=== PATIENT | female | born 2000 | race Caucasian/White ===

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

== ENCOUNTER 2023-03-18 10:58 | Inpatient (IN) ==
--- NOTE | 2023-03-18 11:31 | ED Triage Note ---
Date of Service March 18, 2023 History of Present Illness This patient was briefly evaluated while in triage. An abbreviated physical exam was performed. This patient is a 22-year-old Female who presents to the ED for evaluation of feeling unwell last night, shaking, body aches, headache, emesis x 1 that she believes was dark blood. No blood in diarrhea. Here with mother. Physical Exam GENERAL: 22 year old female. In no acute distress. SKIN: No lesions or rashes. HEART: Regular rate and rhythm. LUNGS: Clear to auscultation. NEURO: Alert and oriented. No deficits. MUSCULOSKELETAL: No deformities to inspection of the extremities. PSYCH: Patient is pleasant and answers all questions appropriately. Initial orders for labs and / or imaging were placed and patient was placed in the waiting area until a bed is available. Please see further documentation for the full ED course.
[2023-03-18 12:06] LABS: Appearance Urine Clear (Clear); Bilirubin Urine Negative (Negative); Blood Urine Negative (Negative); Color Urine Yellow; Glucose Urine UA Negative (Negative); Ketones Urine Negative (Negative); Leukocyte Esterase Urine Negative (Negative); Nitrite Urine Negative (Negative); Protein Urine Negative (Negative); Specific Gravity Urine 1.017 (1.000-1.030); Urobilinogen Urine Negative (Negative); pH Urine >= 9.0 (4.5-7.5)
[2023-03-18 12:08] LABS: Hematocrit (blood only) 39.4 % (37.0-47.0); Hemoglobin 13.6 g/dl (12.0-16.0); Mean Corpuscular Hgb Conc 34.5 g/dL (32.0-36.0); Mean Platelet Volume 9.8 fL (9.4-12.4); Platelet Count 193 K/uL (130-400); RDW Coefficient of Variation 12.2 % (11.5-14.5); RDW Standard Deviation 36.9 fL (36.4-46.3); Red Blood Count 4.69 M/uL (4.20-5.40); White Blood Count 10.92 K/ul (4.8-10.8)
[2023-03-18 12:23] LABS: Alanine Aminotransferase 15 U/L (7-52); Albumin Globulin Ratio 1.6 (0.9-2); Albumin Level 4.5 gm/dl (3.4-5.0); Alkaline Phosphatase 63 U/L (34-104); Anion Gap 8 (3-11); Aspartate Aminotransferase 20 U/L (13-39); BUN Creatinine Ratio 10.9 (10-20); Bilirubin,Total 0.9 mg/dl (0.2-1.0); Blood Urea Nitrogen 11 mg/dl (6-23); Calcium 9.3 mg/dl (8.6-10.3); Carbon Dioxide 22 mmol/L (21-32); Chloride 105 mmol/L (98-107); Est GFR (African American) 92.8 ml/min; Est GFR (Non-African American) 80.1 ml/min; Globulin 2.9 gm/dl (2.5-4.0); Glucose 89 mg/dl (70-99(Fasting)); Lipase 10 U/L (11-82); Magnesium 1.7 mg/dl (1.7-2.4); Potassium 3.7 mmol/L (3.5-5.1); Sodium 135 mmol/L (136-145); Total Protein 7.4 gm/dl (6.0-8.3)
[2023-03-18 12:24] LABS: Monotest Negative (Negative); Pregnancy Test, Serum Negative (Negative)
[2023-03-18 12:25] LABS: Basophils # (auto) 0.03 K/uL (0.00-0.20); Basophils % (auto) 0.3 %; Immature Granulocytes # (auto) 0.03 K/uL (0.01-0.20); Immature Granulocytes % (auto) 0.3 %; Lymphocytes # (auto) 0.55 K/uL (1.20-3.40); Monocytes # (auto) 0.27 K/uL (0.11-0.59); Monocytes % (auto) 2.5 %; Neutrophils # (auto) 10.04 K/uL (1.40-6.50); Neutrophils % (auto) 91.9 %; Toxic Vacuolation 1+
[2023-03-18 12:29] LABS: Troponin I High Sensitivity < 2.3 pg/ml (0-14)
[2023-03-18 12:42] LABS: INR 1.1 (0.9-1.1); Partial Thromboplastin Ratio 1.1; Partial Thromboplastin Time 31.9 Seconds (21.0-31.0); Prothrombin Time 12.1 Seconds (9.0-12.0)
--- NOTE | 2023-03-18 12:54 | XRay Report ---
XR chest 1V not portable HISTORY: 22 years-old Female Body aches acute fever COMPARISON: 02/23/2023 TECHNIQUE: PA view of the chest FINDINGS: Cardiomediastinal and hilar silhouettes are within normal limits. No pneumothorax, pleural effusion o r airspace consolidation. The bones appear normal. IMPRESSION: No acute process. ACT 112: Negative or not required by law. The above report was generated using voice recognition software. It may contain grammatical, syntax o r spelling errors. Electronically signed by: Inocente Colon M.D. 03/18/2023 12:53 PM
[2023-03-18 12:57] LABS: Adenovirus PCR Not Detected (NotDetected); Bordetella parapertussis PCR Not Detected (NotDetected); Bordetella pertussis PCR Not Detected (NotDetected); Chlamydia pneumoniae PCR Not Detected (NotDetected); Coronavirus 229E PCR Not Detected (NotDetected); Coronavirus CoV-2 (COVID19)PCR Not Detected (NotDetected); Coronavirus HKU1 PCR Not Detected (NotDetected); Coronavirus NL63 PCR Not Detected (NotDetected); Coronavirus OC43PCR Not Detected (NotDetected); Human Metapneumovirus PCR Not Detected (NotDetected); Influenza A PCR Not Detected (NotDetected); Influenza B PCR Not Detected (NotDetected); Mycoplasma pneumoniae PCR Not Detected (NotDetected); Parainfluenza Virus 1 PCR Not Detected (NotDetected); Parainfluenza Virus 2 PCR Not Detected (NotDetected); Parainfluenza Virus 3 PCR Not Detected (NotDetected); Parainfluenza Virus 4 PCR Not Detected (NotDetected); Respiratory Syncytial VirusPCR Not Detected (NotDetected); Rhinovirus/Enterovirus PCR Not Detected (NotDetected)
[2023-03-18] MEDS ORDERED: PANTOprazole 40 MG in SYRINGE 0 ML IV ONE (13:53)
[2023-03-18] MEDS ORDERED: SODIUM CHLORIDE 0.9% 2,000 ML IV ONE (13:53)
[2023-03-18] MEDS ORDERED: SODIUM CHLORIDE 0.9% 1,000 ML IV ONE ×2 (15:26→18:43)
[2023-03-18] MEDS ORDERED: ACETAMINOPHEN 500 MG TAB PO STA (15:38)
[2023-03-18] MEDS ORDERED: METOCLOPRAMIDE HCL INJ 5 MG/ML 2 ML VIAL IV STA (15:40)
[2023-03-18] MEDS ORDERED: diphenhydrAMINE 50 MG/ML VIAL IV STA (15:40)
--- NOTE | 2023-03-18 15:41 | Emergency Department Note ---
Impression & Plan Headache ADMIT ED Provider Note HPI: History obtained from patient. The patient is a 22-year-old female who presents emergency department with fever, body aches, headaches, and episode of emesis x1 earlier this morning that the patient states was dark. On arrival here to the ED the patient is noted to be tachycardic at 136 with temperature of 36.8. Patient denies any current chest pain or shortness of breath, denies any abdominal pain, patient states she does have a headache and some generalized body aches. Patient is saturating well on room air on arrival. She states she has had a slight cough. ROS: - Per HPI Differential Diagnosis: Meningitis, encephalitis, Lyme disease, COVID-19 infection, influenza infection, urinary tract infection, pneumonia, amongst other potential pathologies. *Outpatient medications and allergy history reviewed. *Pertinent external medical records reviewed PE: General: Alert HEENT: Normocephalic, trachea midline, full range of motion of the cervical spine is appreciated without limitation or pain Eyes: Extraocular eye movement is intact, no scleral erythema Pulmonary: Clear to auscultation bilaterally, no wheezing Cardio: Tachycardic rate with regular rhythm GI: Abdomen is soft to palpation : No suprapubic tenderness MSK: No evidence of trauma or malformation of the extremities, no edema Skin: No evidence of rash Neuro: Alert, no focal deficits Psychiatric: Cooperative INDEPENDENT INTERPRETATIONS: quality assurance monitor final: (As interpreted by myself): - An order was placed for continuous cardiac monitoring - Patient was noted to be in sinus tachycardia with a rate of 130 EKG: (As interpreted by myself): Rate: 136 Rhythm: Sinus tachycardia Intervals: Within normal limits ST changes: No ST elevation Time: 1615 Interventions provided in ED: -IV fluid bolus, IV vancomycin, IV ceftriaxone, IV doxycycline, IV Reglan, IV Benadryl, IV Ativan Medical Decision Making: IV was established lab work ordered, patient was placed on manager monitoring. Lab work shows a slight leukocytosis at 10.92, hemoglobin is normal, platelet count is normal, CMP does not show any critical findings, troponin is negative, EKG per my interpretation shows sinus tachycardia without any acute ischemic changes or arrhythmia. Procalcitonin is noted to be elevated at 6.83, testing is negative. Urinalysis does not show any evidence of infection. Viral panel testing is negative. Lyme testing was obtained and the patient is Lyme IgM equivocal, Lyme IgG negative. We will send for Western blot. [place] testing was obtained and is negative. Despite IV fluids patient remains tachycardic. She was given Reglan and Benadryl for her headache and she states her headache did improve. She otherwise is alert and oriented, I do not feel CT imaging of the head is indicated at this time but I do have concern for the possibility of meningitis given headache with borderline fever noted here in the ED up to 37.8 in addition to mild leukocytosis with elevated procalcitonin. I discussed lumbar puncture with the patient she was in agreement, unfortunately lumbar puncture was unsuccessful for obtaining CSF secondary to bony resistance encountered during the procedure. Given the patient's ongoing tachycardia with lab abnormalities I do feel would be appropriate to treat the patient prophylactically with vancomycin and ceftriaxone as well as doxycycline given equivocal Lyme IgM. We will plan for admission to the hospitalist service and possible LP under x-ray guidance with radiology service tomorrow. I discussed the case with the on-call hospitalist, Dr. Reveles, and he is in agreement for admission. Patient is in agreement to this plan as is her family member at the bedside. Patient was admitted in stable condition. Consultants/Discussions held with other healthcare providers: -Hospitalist, Dr. Reveles Disposition discussion held by myself with: -Patient and family member at the bedside Diagnosis: 1. Headache, acute, not intractable 2. Fever by history 3. Myalgias, acute 4. Leukocytosis, acute 5. Elevated procalcitonin level 6. Lyme IgM equivocal test finding Disposition: Admission Yossi Fraser DO Emergency Medicine Past Med/Surg History Medical History Academic problem ADHD, predominantly inattentive type followed by Joanna Rollins @ [facility] on trazodone, buspirone, methylphenidate Problems with learning Surgical History History of tonsillectomy and adenoidectomy [place] teeth extracted Family History (Updated 06/15/20 @ 16:33 by Jarrett Molina MD) Unknown Primary nocturnal enuresis Adopted Bipolar disorder Anxiety disorder Brother Attention deficit hyperactivity disorder Mother Diabetes Rheumatoid arthritis Father Rheumatoid arthritis Social History Smoking Status: Never smoker Hx Alcohol Use: No Hx Substance Use: No Preferred Language: Pashto Visual Impairment: No Limitations Hearing Ability: Normal marital status: Single Current Living Situation: Family Current Living Situation Comment: Mom, Dad, younger brother and a dog Feels Safe at Home: Yes Childhood Exposure to Second-Hand Smoke: No Dental Care, Regularly: Yes Seatbelt Use: always Sunscreen Use: No Allergies Allergies Allergy/AdvReac Type Severity Reaction Status Date / Time No Known Allergies Allergy Verified 03/18/23 16:17 Home Meds Home Medications Medication Instructions Recorded Confirmed buspirone 10 mg tablet 10 mg PO BID 12/14/18 03/18/23 trazodone 50 mg tablet 50 mg PO HS 12/14/18 03/18/23 Results & Data (ED) Vital Signs Vital Signs - 24 hr 03/18/23 11:28 03/18/23 13:55 03/18/23 15:51 Temperature 36.8 C 37.7 C H Temperature Source Temporal Artery Scan Oral Pulse Rate 136 H 147 H Pulse Rate [Finger] 145 H Pulse Rhythm [Finger] Regular Respiratory Rate 18 19 Respiratory Effort / Characteristics Non-Labored Spontaneous Non-Labored Spontaneous Respiratory Depth Normal Normal Respiratory Pattern Regular Blood Pressure 114/75 Blood Pressure [Left Arm] 112/68 Blood Pressure Mean 88 Blood Pressure Mean [Left Arm] 82 Blood Pressure Position Sitting Pulse Oximetry 98 97 Oxygen Delivery Method Room Air Room Air Sepsis Recent Fever Within 48 Hours Yes Sepsis New/Unexplained Change in Mental Status N/A Sepsis Action Taken by Nursing No Action Required 03/18/23 15:53 03/18/23 17:37 Temperature 37.8 C H Temperature Source Oral Pulse Rate Pulse Rate [Finger] 138 H 144 H Pulse Rhythm [Finger] Respiratory Rate 18 18 Respiratory Effort / Characteristics Non-Labored Spontaneous Non-Labored Respiratory Depth Normal Normal Respiratory Pattern Blood Pressure Blood Pressure [Left Arm] 112/71 133/74 Blood Pressure Mean Blood Pressure Mean [Left Arm] 84 93 Blood Pressure Position Pulse Oximetry 100 98 Oxygen Delivery Method Room Air Room Air Sepsis Recent Fever Within 48 Hours Sepsis New/Unexplained Change in Mental Status Sepsis Action Taken by Nursing Laboratory Data 03/18/23 11:47 03/18/23 11:47 Lab Results 03/18/23 03/18/23 Range/Units 11:47 11:53 WBC 10.92 H (4.8-10.8) K/ul RBC 4.69 (4.20-5.40) M/uL Hgb 13.6 (12.0-16.0) g/dl Hct 39.4 (37.0-47.0) % MCV 84.0 (80.0-100.0) fL MCH 29.0 (25.0-34.0) pg MCHC 34.5 (32.0-36.0) g/dL RDW Std Deviation 36.9 (36.4-46.3) fL RDW Coeff of [place] 12.2 (11.5-14.5) % Plt Count 193 (130-400) K/uL MPV 9.8 (9.4-12.4) fL Immature Gran % (Auto) 0.3 % Neut % (Auto) 91.9 % Lymph % (Auto) 5.0 % [place] % (Auto) 2.5 % Eos % (Auto) 0.0 % Baso % (Auto) 0.3 % Neut # (Auto) 10.04 H (1.40-6.50) K/uL Lymph # (Auto) 0.55 L (1.20-3.40) K/uL [place] # (Auto) 0.27 (0.11-0.59) K/uL Eos # (Auto) 0.00 (0.00-0.50) K/uL Baso # (Auto) 0.03 (0.00-0.20) K/uL Immature Gran # (Auto) 0.03 (0.01-0.20) K/uL Toxic Vacuolation 1+ PT 12.1 H (9.0-12.0) Seconds INR 1.1 (0.9-1.1) APTT 31.9 H (21.0-31.0) Seconds PTT Ratio 1.1 Sodium 135 L (136-145) mmol/L Potassium 3.7 (3.5-5.1) mmol/L Chloride 105 (98-107) mmol/L Carbon Dioxide 22 (21-32) mmol/L Anion Gap 8 (3-11) BUN 11 (6-23) mg/dl Creatinine 1.01 (0.6-1.2) mg/dl Est Cr Clr Drug Dosing 82.0 ml/min Est GFR ( Amer) 92.8 ml/min Est GFR (Non-Af Amer) 80.1 ml/min BUN/Creatinine Ratio 10.9 (10-20) Glucose 89 (70-99(Fasting)) mg/dl Calcium 9.3 (8.6-10.3) mg/dl Magnesium 1.7 (1.7-2.4) mg/dl Total Bilirubin 0.9 (0.2-1.0) mg/dl AST 20 (13-39) U/L ALT 15 (7-52) U/L Alkaline Phosphatase 63 (34-104) U/L Troponin I High Sens < 2.3 (0-14) pg/ml Total Protein 7.4 (6.0-8.3) gm/dl Albumin 4.5 (3.4-5.0) gm/dl Globulin 2.9 (2.5-4.0) gm/dl Albumin/Globulin Ratio 1.6 (0.9-2) Lipase 10 L (11-82) U/L Procalcitonin 6.83 H (0-0.5) ng/ml HCG, Qual Negative (Negative) Urine Color Yellow Urine Appearance Clear (Clear) Urine pH >= 9.0 H (4.5-7.5) Ur Specific [place] 1.017 (1.000-1.030) Urine Protein Negative (Negative) Urine Glucose (UA) Negative (Negative) Urine Ketones Negative (Negative) Urine Blood Negative (Negative) Urine Nitrite Negative (Negative) Urine Bilirubin Negative (Negative) Urine Urobilinogen Negative (Negative) Ur Leukocyte Esterase Negative (Negative) Adenovirus (PCR) Not Detected (NotDetected) B. pertussis DNA (PCR) Not Detected (NotDetected) B.parapertussis DNA PCR Not Detected (NotDetected) Lyme Disease IgG Ab Negative (Negative) Lyme Disease IgM Ab Equivocal A (Negative) C. pneumoniae DNA (PCR) Not Detected (NotDetected) Coronavirus OC43 (PCR) Not Detected (NotDetected) Coronavirus HKU1 (PCR) Not Detected (NotDetected) Coronavirus 229E (PCR) Not Detected (NotDetected) SARS-CoV-2 (PCR) Not Detected (NotDetected) Coronavirus NL63 (PCR) Not Detected (NotDetected) Monoscreen Negative (Negative) Human Metapneumovir PCR Not Detected (NotDetected) Influenza Type A (PCR) Not Detected (NotDetected) Influenza Type B (PCR) Not Detected (NotDetected) M. pneumoniae (PCR) Not Detected (NotDetected) Parainfluenza 1 (PCR) Not Detected (NotDetected) Parainfluenza 2 (PCR) Not Detected (NotDetected) Parainfluenza 3 (PCR) Not Detected (NotDetected) Parainfluenza 4 (PCR) Not Detected (NotDetected) RSV (PCR) Not Detected (NotDetected) Entero/Rhino (PCR) Not Detected (NotDetected) Group A Strep (PCR) NOT DETECTED (NotDetected) Administered Medications Discontinued Medications Acetaminophen (Acetaminophen 500 Mg Tab) 1,000 mg PO NOW STA Stop: 03/18/23 15:39 Last Admin: 03/18/23 15:53 Dose: 1,000 mg Documented By: NARAYAN Diphenhydramine HCl (Diphenhydramine 50 Mg/Ml Vial) 25 mg IV NOW STA Stop: 03/18/23 15:41 Last Admin: 03/18/23 15:58 Dose: 25 mg Documented By: NARAYAN Sodium Chloride (Nss) 2,000 mls @ 999 mls/hr IV .Q2H1M ONE Stop: 03/18/23 15:53 Last Infusion: 03/18/23 16:31 Dose: Infused Documented By: Admin: 03/18/23 14:15 Dose: 999 mls/hr Documented By: PRASHANT Pantoprazole Sodium 40 mg/ (Syringe) 10 mls @ 5 mls/min IV NOW ONE Stop: 03/18/23 13:54 Last Admin: 03/18/23 14:17 Dose: 5 mls/min Documented By: PRASHANT Sodium Chloride (Nss) 1,000 mls @ 999 mls/hr IV .Q1H1M ONE Stop: 03/18/23 16:26 Last Infusion: 03/18/23 17:31 Dose: Infused Documented By: Admin: 03/18/23 16:03 Dose: 999 mls/hr Documented By: NARAYAN Lorazepam (Lorazepam 1 Mg/1 Ml Syr Ed Inj Use) 1 mg IV ONE STA Stop: 03/18/23 17:39 Last Admin: 03/18/23 18:01 Dose: 1 mg Documented By: NINA Metoclopramide HCl (Metoclopramide Hcl Inj 5 Mg/Ml 2 Ml Vial) 10 mg IV NOW STA Stop: 03/18/23 15:41 Last Admin: 03/18/23 15:59 Dose: 10 mg Documented By: NARAYAN Imaging Data Radiologist's Impression: Chest X-Ray 03/18/23 11:31 XR chest 1V not portable HISTORY: 22 years-old Female Body aches acute fever COMPARISON: 02/23/2023 TECHNIQUE: PA view of the chest FINDINGS: Cardiomediastinal and hilar silhouettes are within normal limits. No pneumothorax, pleural effusion or airspace consolidation. The bones appear normal. IMPRESSION: No acute process. ACT 112: Negative or not required by law. The above report was generated using voice recognition software. It may contain grammatical, syntax or spelling errors. Electronically signed by: Inocente Colon M.D. 03/18/2023 12:53 PM Discharge Plan Visit Data Chief Complaint: Flu Like Symptoms Stated Complaint: VOMITING BLOOD,FLU SX,BODY ACHES,104 TEMP ED Provider: Yossi Fraser Discharge Problem: Headache Forms Stand Alone Forms: My [employer] Prescriptions Prescriptions: No Action trazodone 50 mg tablet 50 mg PO HS buspirone 10 mg tablet 10 mg PO BID Referrals Referrals: Joi Ramírez MD [Primary Care Provider] -
[2023-03-18 16:23] LABS: Procalcitonin 6.83 ng/ml (0-0.5)
[2023-03-18 16:29] LABS: Lyme Ab IgG w/WB Rflx Negative (Negative)
[2023-03-18 17:16] LABS: Lyme Ab IgM w/WB Rflx Equivocal (Negative)
[2023-03-18] MEDS ORDERED: LORazepam 1 MG/1 ML SYR ED Inj Use IV STA (17:38)
[2023-03-18] MEDS ORDERED: VANCOMYCIN CONSULT ACTIVE PRN ×2 (18:41→22:28)
[2023-03-18] MEDS ORDERED: VANCOMYCIN HCL 1,500 MG in SODIUM CHLORIDE 0.9% 500 ML IV ONE (18:41)
[2023-03-18] MEDS ORDERED: cefTRIAXone SODIUM 2,000 MG/50 ML BAG IV STA (18:41)
[2023-03-18] MEDS ORDERED: DOXYCYCLINE HYCLATE 100 MG in DEXTROSE 5% MINI-B 100 ML IV ONE (18:59)
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
[2023-03-18] MEDS ORDERED: traZODone HCL 50 MG TAB PO ONE (22:49)
[2023-03-18 23:01] LABS: C Reactive Protein 7.54 mg/dl (0-0.5)
[2023-03-18] MEDS: PLASMA-LYTE A 1,000 ML IV SCH (23:35)
[2023-03-18] MEDS: PANTOprazole 40 MG in SYRINGE 0 ML IV SCH (23:39)
[2023-03-19 01:33] LABS: Hematocrit (blood only) 33.2 % (37.0-47.0); Hemoglobin 11.6 g/dl (12.0-16.0)
[2023-03-19] MEDS: PLASMA-LYTE A 1,000 ML IV SCH ×3 (02:17→22:42)
[2023-03-19 05:10] LABS: Basophils # (auto) 0.02 K/uL (0.00-0.20); Basophils % (auto) 0.3 %; Eosinophils # (auto) 0.02 K/uL (0.00-0.50); Eosinophils % (auto) 0.3 %; Hematocrit (blood only) 33.6 % (37.0-47.0); Immature Granulocytes # (auto) 0.03 K/uL (0.01-0.20); Immature Granulocytes % (auto) 0.5 %; Lymphocytes # (auto) 1.19 K/uL (1.20-3.40); Lymphocytes % (auto) 20.2 %; Mean Corpuscular Hemoglobin 30.1 pg (25.0-34.0); Mean Corpuscular Hgb Conc 35.7 g/dL (32.0-36.0); Mean Corpuscular Volume 84.2 fL (80.0-100.0); Mean Platelet Volume 10.4 fL (9.4-12.4); Monocytes # (auto) 0.47 K/uL (0.11-0.59); Neutrophils # (auto) 4.16 K/uL (1.40-6.50); Neutrophils % (auto) 70.7 %; Platelet Count 165 K/uL (130-400); RDW Coefficient of Variation 12.2 % (11.5-14.5); RDW Standard Deviation 37.3 fL (36.4-46.3); Red Blood Count 3.99 M/uL (4.20-5.40); White Blood Count 5.89 K/ul (4.8-10.8)
[2023-03-19 05:25] LABS: BUN Creatinine Ratio 9.1 (10-20); C Reactive Protein 8.32 mg/dl (0-0.5); Calcium 8.2 mg/dl (8.6-10.3); Creatinine Clr Calc Pharmacy 107.6 ml/min; Est GFR (African American) 128.8 ml/min; Est GFR (Non-African American) 111.1 ml/min; Potassium 3.3 mmol/L (3.5-5.1)
[2023-03-19] MEDS ORDERED: VANCOMYCIN HCL 1,000 MG in SODIUM CHLORIDE 0.9% 500 ML IV SCH (06:00)
[2023-03-19] MEDS ORDERED: VANCOMYCIN HCL 1,000 MG in SODIUM CHLORIDE 0.9% 250 ML IV SCH (06:00)
[2023-03-19] MEDS ORDERED: DOXYCYCLINE HYCLATE 100 MG in DEXTROSE 5% MINI-B 100 ML IV SCH (07:00)
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
[2023-03-19 11:45] LABS: Appearance CSF Clear; CSF Count Tube # 3; CSF Xanthrochromic No xanthochromia; Color CSF Colorless
[2023-03-19] MEDS ORDERED: VANCOMYCIN HCL 1,250 MG in SODIUM CHLORIDE 0.9% 250 ML IV SCH (12:00)
--- NOTE | 2023-03-19 12:29 | Electrocardiogram Report ---
Test Reason : Blood Pressure : / mmHG Vent. Rate : 136 BPM Atrial Rate : 136 BPM P-R Int : 124 ms QRS Dur : 072 ms QT Int : 310 ms P-R-T Axes : 069 054 024 degrees QTc Int : 466 ms Sinus tachycardia Otherwise Normal ECG No previous ECGs available Confirmed by Mayo Valdes ([id number]) on 03/19/2023 12:29:14 PM Referred By: REFERRED SELF Confirmed By:Mayo Valdes
--- NOTE | 2023-03-19 12:39 | Pharmacy Report ---
Pharmacy PK ABX Note - Date of Service March 19, 2023 - Assessment and Plan Assessment 22 year old F receiving empiric vancomycin/ceftriaxone/doxycycline for treatment of fever- unknown source. Pertinent microbiologic data includes: LP pending, equivocal Lyme IGM Ab- further studies pending. Negative respiratory panel. Procal was elevated at 6.83. Plan Vancomycin * Loading dose: 1500 mg IV x 1 * Maintenance dose: 1250 mg IV every 12 hours * Regimen is predicted to achieve target AUC/ANKIT of 400-600 mg/L.hr * Random level ordered for 03/20 @ 1000 Pharmacy will continue to follow and will adjust dose/frequency as necessary. Thank you. Pharmacy has transitioned to AUC monitoring for vancomycin. AUC/ANKIT is the preferred PK/PD target and is associated with decreased risk of nephrotoxicity compared to traditional trough targets.
[2023-03-19] MEDS: PANTOprazole 40 MG in SYRINGE 0 ML IV SCH ×2 (12:40→20:23)
[2023-03-19 12:56] LABS: Cryptococcus neoformans/ga PCR Not Detected (NotDetected); Cytomegalovirus PCR Not Detected (NotDetected); Enterovirus PCR Not Detected (NotDetected); Escherichia coli K1 PCR Not Detected (NotDetected); Haemophilius influenzae PCR Not Detected (NotDetected); Herpes Simplex Virus 1 PCR Not Detected (NotDetected); Herpes Simplex Virus 2 PCR Not Detected (NotDetected); Human Herpes Virus 6 PCR Not Detected (NotDetected); Human Parechovirus PCR Not Detected (NotDetected); Listeria monocytogenes PCR Not Detected (NotDetected); Neisseria meningitidis PCR Not Detected (NotDetected); Streptococcus agalactiae PCR Not Detected (NotDetected); Streptococcus pneumoniae PCR Not Detected (NotDetected); Varicella Zoster Virus PCR Not Detected (NotDetected)
--- NOTE | 2023-03-19 13:15 | Fluoroscopy Report ---
Lumbar puncture under fluoroscopy INDICATION: Evaluate for meningitis; body aches/fever PROCEDURE: Procedure and risks were explained. Informed consent was obtained. A final timeout was com pleted. The patient was placed prone on the fluoroscopic exam table. The lower lumbar region was prep ped and draped in sterile fashion. 1% lidocaine was utilized for skin anesthesia. Utilizing fluoroscopic guidance, a 22-gauge spinal needle was advanced into the intrathecal space at the L 2-3 disc space level. 1 spot image was obtained. Approximately 9 mL of clear CSF fluid was alysia radha and sent to lab for analysis. The needle was removed and Band-Aid applied. The patient tolerated the procedure well. Vital signs will be monitored postprocedure. Total fluoroscopy time 20 seconds. DAP is 2.12 mcGy/m2. IMPRESSION: Lumbar puncture as above. Performed, dictated, and signed by Alexey Saleh PA-C; to be co-signed by Dr. Inocente Colon. Electronically signed by: Inocente Colon M.D. 03/19/2023 1:43 PM
[2023-03-19 13:17] LABS: Total Protein CSF 23.3 mg/dl (15-45)
[2023-03-19] MEDS: ACETAMINOPHEN 1,000 MG/100 ML VIAL IV PRN (16:11)
--- NOTE | 2023-03-19 17:25 | Billing Data ---
Date of Service March 19, 2023 Coding Level of Care Code 59366 SUB INP/OBS CARE MIN
[2023-03-19] MEDS ORDERED: cefTRIAXone SODIUM 2,000 MG in DEXTROSE 5 % MINI-B 50 ML IV SCH (20:00)
[2023-03-19] MEDS ORDERED: traZODone HCL 50 MG TAB PO SCH (21:00)
[2023-03-20] MEDS: ACETAMINOPHEN 1,000 MG/100 ML VIAL IV PRN (04:19)
[2023-03-20 04:48] LABS: Basophils # (auto) 0.01 K/uL (0.00-0.20); Basophils % (auto) 0.2 %; Eosinophils # (auto) 0.11 K/uL (0.00-0.50); Eosinophils % (auto) 2.4 %; Hematocrit (blood only) 33.2 % (37.0-47.0); Hemoglobin 11.3 g/dl (12.0-16.0); Immature Granulocytes # (auto) 0.01 K/uL (0.01-0.20); Immature Granulocytes % (auto) 0.2 %; Lymphocytes # (auto) 1.93 K/uL (1.20-3.40); Lymphocytes % (auto) 42.8 %; Mean Corpuscular Hemoglobin 28.5 pg (25.0-34.0); Mean Corpuscular Volume 83.8 fL (80.0-100.0); Mean Platelet Volume 10.2 fL (9.4-12.4); Monocytes # (auto) 0.66 K/uL (0.11-0.59); Monocytes % (auto) 14.6 %; Neutrophils # (auto) 1.79 K/uL (1.40-6.50); Neutrophils % (auto) 39.8 %; Platelet Count 156 K/uL (130-400); RDW Coefficient of Variation 12.4 % (11.5-14.5); RDW Standard Deviation 38.1 fL (36.4-46.3); Red Blood Count 3.96 M/uL (4.20-5.40); White Blood Count 4.51 K/ul (4.8-10.8)
[2023-03-20 05:01] LABS: BUN Creatinine Ratio 12.8 (10-20); Calcium 8.8 mg/dl (8.6-10.3); Creatinine Clr Calc Pharmacy 95.6 ml/min; Est GFR (African American) 112.7 ml/min; Est GFR (Non-African American) 97.3 ml/min; Potassium 3.7 mmol/L (3.5-5.1)
[2023-03-20] MEDS: PLASMA-LYTE A 1,000 ML IV SCH ×2 (06:13→11:13)
[2023-03-20] MEDS: PANTOprazole 40 MG in SYRINGE 0 ML IV SCH (08:39)
[2023-03-20] MEDS ORDERED: BUTALBITAL/ACETAMIN/CAFFEINE TAB PO STA (10:41)
--- NOTE | 2023-03-20 10:45 | Hospitalist Progress Note ---
Date of Service March 20, 2023 Assessment & Plan (1) Fever: (2) Hematemesis: (3) Anxiety disorder: (4) Tachycardia: Plan Pt is a 22 yo female with an non-pertinent past medical history who presents to the hospital on 03/18 for fever. Pt has postural headache, increased fluids and given caffeine, will monitor and see how she does. If not D/C later today, should be good for D/C tomorrow. Fever of unknown source, viral > tickborne Fever of 104.0*F, severe headache which began 03/17, no recent travel or tick bites, Lyme IgM is equivocal LP performed, pending lyme but negative for all else - Anaplasmosis testing pending Blood cultures pending, negative so far - suspect that this is viral in nature, however if fever persists/symptoms not improving on Thursday, favors more of a tick-borne illness Headache - likely spinal headache after LP yesterday as it is postural - will give po caffeine and increase IV fluids Tachycardia With high fever and headache, infection tx as noted Sinus tachycardia up to 150s, improved significantly following fluids but remains intermittently in 120-130s. IVF are continued, now largely 110s Do not treat sinus tachycardia with beta-blockers as is most likely reactive. We will continue to treat infectious sources, +tylenol, and trend hemoglobin. - will continue to monitor Metabolic acidosis - CO2 16, chloride 110 - suspect due to multiple liters of normal saline given yesterday, pt on plasmalyte now Hematemesis, 1 episode Patient endorses 1 episode of emesis which she thinks may have been dark or reddish, never had a GI bleed previously, no hematochezia or melena Does use ibuprofen as needed during periods chronically for cramps/pain. Will cover with twice daily PPI push Anxiety disorder BuSpar/trazodone held while in DVT prophylaxis: SCDs CODE STATUS: Full Admission and Anticipated Discharge Date Admission Date: March 18, 2023 Supervising Physician Co-Signing Physician Notes I personally examined the patient and verified all forrest points of history and exam, discussed case, and agree with decision making with Dr Patrick feeling better. feels up to going home. Vitals noted, in general she is awake and alert pleasant no distress. HEENT normocephalic atraumatic mucous membranes moist. Breathing unlabored no accessory muscle use good effort. Skin shows no rashes no pallor or icterus. Neuro without focal deficits. Febrile illness/sepsis present on admissionfortunately does not appear to be typical bacterial infectionsspinal tap clean, blood cultures no growth to date, no evidence of pneumonia/UTI/intestinal infection. Seems most likely viral versus less likely but hard to rule out in this very endemic area something tickborneoff all abx and still getting better. If she improves as would be expected for a viral illness, that would essentially declare the diagnosis. If she continues to have fevers or malaise or feels worseparticularly over the next few daysthen would reinstitute doxycycline. (arbitarily outlined 03/22 as the "line" past which would reconsider tick borne) Otherwise as above Subjective Pt is a 22 yo female with an non-pertinent past medical history who presents to the hospital on 03/18 for fever. Today, pt states she was feeling well this morning with some nausea. Pt states that otherwise she feels well. No vomiting. Later this morning, pt noted to have severe postural headache, but otherwise is feeling fine, just states when she sits or stands that her headache gets very intense. Review of Systems Review of Systems: Per HPI. Physical Exam Physical Exam: General:Alert and oriented, no acute distress, HEENT: Normocephalic, moist oral mucosa, Cardio: Regular rate and rhythm, no murmur, Resp:Lungs clear to auscultation b/l, no wheezes or rhonchi, GI: Soft and nontender, nondistended, bowel sounds active Skin: Warm, pink, dry, Psych: Mood-affect congruence. Results & Data Results & Data Vital Signs (Past 12 Hours) Vital Signs Temp Pulse Pulse Resp BP Pulse Ox O2 Del Method 03/20/23 08:00 82 03/20/23 07:00 37.0 C 96 H 16 111/59 L 99 Room Air 03/20/23 04:29 36.8 C 94 H 20 105/71 100 Room Air 03/20/23 00:00 82 03/19/23 22:49 37.0 C 95 H 17 117/74 98 Room Air Resident Activity Tracking Resident Involvement: Resident Care Provided Care Provided: Adult Hospital Medicine
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
--- NOTE | 2023-03-20 18:45 | Billing Data ---
Date of Service March 20, 2023 Coding Level of Care Code 62487 IN/OBS DISCH 30 MIN/LESS
--- NOTE | 2023-03-22 08:35 | Coding Query ---
To promote full compliance with coding requirements relating to patient care, provider participation is requested in all cases of information coder uncertainty. Please assist us with the question(s) below: Coding Question(s): The diagnosis(es) below was documented that antibiotic coverage was being provided for meningitis. Please indicate if it is still a possible diagnosis or ruled out. Physician's Response(s): MENINGITIS ( ) Diagnosed and POA ( ) Diagnosed and not POA ( x ) Ruled out ( ) Other (please specify) Thank you for your assistance, Jelena Hui - Support Worker [facility]Mary
--- OUTSIDE RECORDS SUMMARY | 2023-03-22 16:28 | External Medical Summary | Continuity of Care Document ---
Author Name Unknown Organization [address] [place], [place] [id number] Care Team Providers Care Certified Medication Aide Name Role Phone Paige Jimenez Primary Care Physician [phone] Encounter PSYCHIATRIC [id number] Date(s): 09/30/22 - 09/30/[address] [address] [phone] Encounter Diagnosis Body mass index [BMI] 25.0-25.9, adult(Discharge Diagnosis) - 09/30/22 Concussion(Discharge Diagnosis) - 09/30/22 Discharge Disposition: Home or Self Care Attending Physician: MD Desiree, [place] Allergies, Adverse Reactions, Alerts No Known Allergies Assessment and Plan Extracted from: Title:Office Visit Note Author:MD Desiree, [facility] Date:09/30/22 1.Concussion Acute. Discussed with patient and mother about concussion. Patient education about Concussion provider before discharge. Discussed about hydration, limit use of electronics. Seek immediate consult if with worsening of symptoms. Refer to Neurology ordered. Immunizations Given and Recorded Vaccine Date Status Refusal Reason human papillomavirus vaccine 01/11/21 Given human papillomavirus vaccine 1 08/28/14 Recorded SARS-CoV-2 (COVID-19) Ad26 vaccine 2 12/05/20 Speedy rded meningococcal group B vaccine 3 12/14/18 Recorded meningococcal conjugate vaccine 4 12/14/18 Recorde d meningococcal conjugate vaccine 5 04/18/13 Recorde d tetanus/diphtheria/pertuss, acel (Tdap) 6 04/18/13 Recorded hepatitis A pediatric vaccine 7 01/29/12 Recorded hepatitis A pediatric vaccine 8 03/24/11 Recorded influenza virus vaccine, H1N1 9 05/02/09 Recorded influenza virus vaccine, H1N1 10 03/31/09 Recorded varicella virus vaccine 11 10/27/07 Recorded varicella virus vaccine 12 12/10/04 Recorded poliovirus vaccine, inactivated 13 10/27/07 Record ed poliovirus vaccine, inactivated 14 10/16/04 Record ed poliovirus vaccine, inactivated 15 02 Record ed poliovirus vaccine, inactivated 16 02 Record ed measles/mumps/rubella virus vaccine 17 10/27/07 Re corded measles/mumps/rubella virus vaccine 18 06/11/04 Re corded diphtheria/tetanus/pertuss, acel (DTaP) 19 10/27/07 Recorded diphtheria/tetanus/pertuss, acel (DTaP) 20 10/16/04 Recorded diphtheria/tetanus/pertuss, acel (DTaP) 21 06/11/04 Recorded diphtheria/tetanus/pertuss, acel (DTaP) 22 02 Recorded diphtheria/tetanus/pertuss, acel (DTaP) 23 02 Recorded pneumococcal 7-valent vaccine 24 12/10/04 Recorded pneumococcal 7-valent vaccine 25 02 Recorded pneumococcal 7-valent vaccine 26 02 Recorded hepatitis B pediatric vaccine 27 12/10/04 Recorded hepatitis B pediatric vaccine 28 02 Recorded hepatitis B pediatric vaccine 29 02 Recorded hepatitis B pediatric vaccine 30 02 Recorded 1Result Comment: 2020-09-07: Historical information-source unspecified 2Result Comment: 2021-01-11: Historical information-source unspecified 3Result Comment: 2020-09-07: Historical information-source unspecified 4Result Comment: 2020-09-07: Historical information-source unspecified 5Result Comment: 2020-09-07: Historical information-source unspecified 6Result Comment: 2020-09-07: Historical information-source unspecified 7Result Comment: 2021-01-11: Historical information-source unspecified 8Result Comment: 2021-01-11: Historical information-source unspecified 9Result Comment: 2020-09-07: Historical information-source unspecified 10Result Comment: 2020-09-07: Historical information-source unspecified 11Result Comment: 2020-09-07: Historical information-source unspecified 12Result Comment: 2020-09-07: Historical information-source unspecified 13Result Comment: 2020-09-07: Historical information-source unspecified 14Result Comment: 2020-09-07: Historical information-source unspecified 15Result Comment: 2020-09-07: Historical information-source unspecified 16Result Comment: 2020-09-07: Historical information-source unspecified 17Result Comment: 2020-09-07: Historical information-source unspecified 18Result Comment: 2020-09-07: Historical information-source unspecified 19Result Comment: 2020-09-07: Historical information-source unspecified 20Result Comment: 2020-09-07: Historical information-source unspecified 21Result Comment: 2020-09-07: Historical information-source unspecified 22Result Comment: 2020-09-07: Historical information-source unspecified 23Result Comment: 2020-09-07: Historical information-source unspecified 24Result Comment: 2020-09-07: Historical information-source unspecified 25Result Comment: 2020-09-07: Historical information-source unspecified 26Result Comment: 2020-09-07: Historical information-source unspecified 27Result Comment: 2020-09-07: Historical information-source unspecified 28Result Comment: 2020-09-07: Historical information-source unspecified 29Result Comment: 2020-09-07: Historical information-source unspecified 30Result Comment: 2020-09-07: Historical information-source unspecified Medications busPIRone 10 mg oral tablet Start: 01/11/21 15:32:00 EDT, 1 tab, PO, bid Start Date: 01/11/21 Status: Ordered Concerta 27 mg/24 hr oral tablet, extended release Start: 09/30/22 9:51:00 EDT, 1 tab, PO, qAM, Refills: 0 Start Date: 09/30/22 Status: Ordered Sprintec Start: 01/11/21 15:31:00 EDT, 1 tab, PO, Daily Start Date: 01/11/21 Status: Ordered traZODone 50 mg oral tablet Start: 01/11/21 15:32:00 EDT, 1 tab, PO, qhs Start Date: 01/11/21 Status: Ordered Mental Status 09/30/22 Barriers to Learning one year None evide nt Mandatory Health Literacy Documentation Yes Health Literacy Communication Barriers N ever Primary Language Panamanian Problem List Condition Confirmation Course Effective Dates Status Health St at[facility] Informant ADD (attention deficit disorder) Confirmed Active Depression Confirmed Active Raynaud disease Confirmed Active Diagnosis Diagnosis Type Effective Dates Health Status Clinical Service Informant Body mass index [BMI] 25.0-25.9, adult Discharge Diagnosis 09/30/22 Non-Specified Concussion Discharge Diagnosis 09/30/22 Procedures Procedure Date Related Diagnosis Body Site Status tonsillectomy 2007 Completed None Completed Vital Signs Most recent to oldest [Reference Range]: 1 Height 161.9 cm (09/30/22 9:51 AM) Patient Weight 67.4 kg (09/30/22 9:51 AM) Body Mass Index 25.71 kg/m2 (09/30/22 9:51 AM) Heart Rate 94 bpm (09/30/22 9:51 AM) Respiratory Rate 14 br/min (09/30/22 9:51 AM) Blood Pressure 118/76mmHg (09/30/22 9:51 AM) Cuff Pulse Pressure 42 mmHg (09/30/22 9:51 AM) Social History Social History Type Response Smoking Status Never smoked cigaret zully Sex Female FCM Outpt Note * MD Desiree, [place]: PERFORM Event Display: FCM Outpt Note Authored Date: Chief Complaint hit head on car part . diagnosed with concussion thursday per CT scan. patient states shefeels fine; a bit dizzy when driving. mom states she feels there's some memory issues going on History of Present Illness 22 y/o F c/o mild dizziness x 6 days. Patient reported that she got hit on the headby hard top. Patient's BF was showing her how to remove his car's hard top and it accidentallyslipped out of BF's hand and hit the right side of the head. States that she noticed bump on the area where she got hit. After few hours, she started feeling nauseous,dizzy, c/o light and soundsensitivity,c/o headache. States that she went to ER the next day and had CT of the brain and it was normal. Today, shefeels much better but still feels dizzy with mild headache. Denies blurring of vision, no vomiting, denies chest pain or shortness of breath. denies abdominal pain. denies numbness, tingling or weakness of the extremities. Review of Systems see hpi Physical Exam Vitals & Measurements HR:94(Monitored) RR:14 BP:118/76 SpO2:98% HT:161.9cm WT:67.4kg WT:67.400kg(Dosing) BMI:25.71 PHQ2 Data(Data Documented on:09/30/2022 09:51) Emotional health assessment NEGATIVE General: alert and oriented, no acute distress Eye: PERRL, EOMI, normal conjunctiva Scalp: no redness, non tender, no lump or bump noted at the time of exam. HENT: normocephalic, TMs clear, normal hearing, moist oral mucosa, no pharyngeal erythema, no sinus tenderness Neck: supple, non-tender, no lymphadenopathy, no thyromegaly Resp: Lungs CTA, non-labored respirations, BS equal, symmetrical expansion CV: normal rate and rhythm, no murmur, no gallop, good pulses equal in all extremities, normal peripheral perfusion, no edema GI: soft, non-tender, non-distended, normal bowel sounds, no organomegaly : no CVA tenderness MS: normal ROM, normal strength, no tenderness, no swelling, no deformity, normal gait Neurologic: alert and oriented, normal sensory, normal motor, no focal deficits, CN II-XII intact, normal DTRs Psychiatric: appropriate mood and affect, normal judgement, non-suicidal Assessment/Plan 1.Concussion Acute. Discussed with patient and mother about concussion. Patient education about Concussion provider before discharge. Discussed about hydration, limit use of electronics. Seek immediate consult if with worsening of symptoms. Refer to Neurology ordered. Attestation A total of 35 minutes were spenton direct patient care, documentation,orders, and chart review. Problem List/Past Medical History Ongoing ADD (attention deficit disorder) Depression Raynaud disease Procedure/Surgical History tonsillectomy (2007)None Medications busPIRone(busPIRone 10 mg oral tablet), 10 mg= 1 tab, PO, bid ethinyl estradiol-norgestimate(Sprintec), 1 tab, PO, Daily methylphenidate(Concerta 27 mg/24 hr oral tablet, extended release), 27 mg= 1 tab, PO, qAM traZODone(traZODone 50 mg oral tablet), 50 mg= 1 tab, PO, qhs Allergies NKA Social History Smoking Status Never smoked cigarettes Alcohol Use:Current Type:Beer, Wine, Liquor Frequency:1-2 times per week Average drinks per episode in last year:3 Previous treatment:None Has alcohol use interfered with work or home life:No Do you ever drink more than intended:No Has anyone been hurt or at risk by your drinking:No Concerns about alcohol use in household:No Employment/School Status:Student - Comments: first year [employer]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 Exercise Duration (average number of minutes):30 Times per week:Daily Self assessment:Good condition Exercise type:Walking Home/Environment Lives with:college dorm Sexual Sexually active:Yes First active at age:18Years Current partners:1 Number of lifetime partners:8 Self described orientation:Straight or heterosexual Other contraceptive use: control and condoms at times History of sexual abuse:No Substance Abuse - Denies Substance Abuse Tobacco - Denies Tobacco Use Use:Never smoker Smokeless tobacco use:Never Type:vape off and on Family History Alcohol abuse: Mother, Father, MGF, MGM, PGF and PGM. Health Status Family Member(s) Immunizations Vaccine Date Status human papillomavirus vaccine 01/11/2021 Given SARS-CoV-2 (COVID-19) Ad26 vaccine 12/05/2020 Recorded Comments : 2021-01-11: Historical information-source unspecified meningococcal group B vaccine 12/14/2018 Recorded Comments : 2020-09-07: Historical information-source unspecified meningococcal conjugate vaccine 12/14/2018 Recorded Comments : 2020-09-07: Historical information-source unspecified human papillomavirus vaccine 08/28/2014 Recorded Comments : 2020-09-07: Historical information-source unspecified tetanus/diphtheria/pertuss, acel (Tdap) 04/18/2013 Recorded Comments : 2020-09-07: Historical information-source unspecified meningococcal conjugate vaccine 04/18/2013 Recorded Comments : 2020-09-07: Historical information-source unspecified hepatitis A pediatric vaccine 01/29/2012 Recorded Comments : 2021-01-11: Historical information-source unspecified hepatitis A pediatric vaccine 03/24/2011 Recorded Comments : 2021-01-11: Historical information-source unspecified influenza virus vaccine, H1N1 05/02/2009 Recorded Comments : 2020-09-07: Historical information-source unspecified influenza virus vaccine, H1N1 03/31/2009 Recorded Comments : 2020-09-07: Historical information-source unspecified varicella virus vaccine 10/27/2007 Recorded Comments : 2020-09-07: Historical information-source unspecified poliovirus vaccine, inactivated 10/27/2007 Recorded Comments : 2020-09-07: Historical information-source unspecified measles/mumps/rubella virus vaccine 10/27/2007 Recorded Comments : 2020-09-07: Historical information-source unspecified diphtheria/tetanus/pertuss, acel (DTaP) 10/27/2007 Recorded Comments : 2020-09-07: Historical information-source unspecified varicella virus vaccine 12/10/2004 Recorded Comments : 2020-09-07: Historical information-source unspecified pneumococcal 7-valent vaccine 12/10/2004 Recorded Comments : 2020-09-07: Historical information-source unspecified hepatitis B pediatric vaccine 12/10/2004 Recorded Comments : 2020-09-07: Historical information-source unspecified poliovirus vaccine, inactivated 10/16/2004 Recorded Comments : 2020-09-07: Historical information-source unspecified diphtheria/tetanus/pertuss, acel (DTaP) 10/16/2004 Recorded Comments : 2020-09-07: Historical information-source unspecified measles/mumps/rubella virus vaccine 06/11/2004 Recorded Comments : 2020-09-07: Historical information-source unspecified diphtheria/tetanus/pertuss, acel (DTaP) 06/11/2004 Recorded Comments : 2020-09-07: Historical information-source unspecified poliovirus vaccine, inactivated 2002 Recorded Comments : 2020-09-07: Historical information-source unspecified pneumococcal 7-valent vaccine 2002 Recorded Comments : 2020-09-07: Historical information-source unspecified hepatitis B pediatric vaccine 2002 Recorded Comments : 2020-09-07: Historical information-source unspecified diphtheria/tetanus/pertuss, acel (DTaP) 2002 Recorded Comments : 2020-09-07: Historical information-source unspecified poliovirus vaccine, inactivated 2002 Recorded Comments : 2020-09-07: Historical information-source unspecified pneumococcal 7-valent vaccine 2002 Recorded Comments : 2020-09-07: Historical information-source unspecified hepatitis B pediatric vaccine 2002 Recorded Comments : 2020-09-07: Historical information-source unspecified diphtheria/tetanus/pertuss, acel (DTaP) 2002 Recorded Comments : 2020-09-07: Historical information-source unspecified hepatitis B pediatric vaccine 2002 Recorded Comments : 2020-09-07: Historical information-source unspecified Recommendations Health Maintenance Pending(in the next year) OverDue Adult Influenza Vaccine due11/08/21and every 1year Due Adult COVID-19 Vaccination due09/30/22Unknown Frequency Adult Folic Acid Supplementation due09/30/22and every 3year Hepatitis C Screening due09/30/22One-time only Due In Future Body Mass Index not due until09/30/23and every 1year Satisfied(in the past 1 year) Satisfied Body Mass Index on09/30/22.Satisfied by IRIS Wang Bobbi Electronic Signature on File Electronically Reviewed/Signed by: Joi Ramírez MD Author Signature Dt/Tm:09/30/2022 12:18 PM Department of Family Medicine VS Patient Care team information Care Team Personnel Name: MD Barbara, Paige Suresh Position: Referring DIRECT Member Role: Primary Care Provider Address: Address: [address] [place] [id number] [place] Care Team Related Persons Name: TELLO KRAMER Address: home [address] [place] [phone] Name: TASHIA KRAMER Address: home [address] [place] [phone]
--- OUTSIDE RECORDS SUMMARY | 2023-03-22 16:28 | External Medical Summary | Continuity of Care Document ---
Author Name Unknown Organization [address] Address [address] [place], [place] [id number] Care Team Providers Care Saddle Stitch Operator Name Role Phone BarbaraBao michaelgogo Suresh Primary Care Physician [phone] [id number] Date(s): 02/20/23 - 02/20/[address] [address] [phone] Encounter Diagnosis Body mass index [BMI] 27.0-27.9, adult(Discharge Diagnosis) - 02/20/23 Acute recurrent maxillary sinusitis(Discharge Diagnosis) - 02/20/23 Cough(Discharge Diagnosis) - 02/20/23 ADD (attention deficit disorder)(Discharge Diagnosis) - 02/21/23 Depression(Discharge Diagnosis) - 02/21/23 Discharge Disposition: Home or Self Care Attending Physician: MD Desiree, [place] Allergies, Adverse Reactions, Alerts No Known Allergies Assessment and Plan Extracted from: Title:Office Visit Note Author:MD Desiree, [facility] Date:02/20/23 1.Acute recurrent maxillar y sinusitis Advised to use Flonase 2 sprays on each nostril at night. Antihistamine of choice (Zyrtec, Claritin, Allergra, Xyxal) once a day; saline nasal rinse or netipot as often as possible during day time.May take Ibuprofen or Tylenol as needed for pain. Increase oral fluid intake. 2.Cough Tessalon perles 100 mg 1 tab 3x a day as needed for cough. Azithromycin prescribed. Informed patient that symptoms most likely viral cause. Advised to hold off with antibiotic use for at least 4-5 days. If symptoms worsens or lingers then may start the oral antibiotic. If she ends up taking the antibiotic , advised to take it withfood. Advised to take probiotics while on antibiotic. 3.ADD (attention deficit disorder) Chronic. Stable. Continue medication. Follow up with psychiatrist 4.Depression Chronic. Stable. Continue medication.Follow up with Psychiatrist. Advised to seek immediate consult if with worsening of symptoms or if you develop new symptoms. Immunizations Given and Recorded Vaccine Date Status [...] Refills: 0 Start Date: 09/30/22 Status: Ordered melatonin 10 mg oral tablet Start: 02/20/23 10:10:00 EDT, 1 tab, PO, qhs Start Date: 02/20/23 Status: Ordered Tessalon Perles 100 mg oral capsule Start: 02/20/23 10:48:00 EDT, 1 cap, PO, tid, Disp# 30 cap, Pharmacy: [id number] Start Date: 02/20/23 Stop Date: 03/02/23 Status: Ordered traZODone 50 mg oral tablet Start: 01/11/21 15:32:00 EDT, 1 tab, PO, qhs Start Date: 01/11/21 Status: Ordered Zithromax Z-Huber 250 mg oral tablet Start: 02/20/23 10:49:00 EDT, See Comments, PO, Daily, Disp# 6 tab, 500 mg (2 tabs) on day 1, then 250 mg (1 tab) on days 2-5, Pharmacy: [id number] Start Date: 02/20/23 Status: Ordered Mental Status 02/20/23 Barriers to Learning one year None evide nt Mandatory Health Literacy Documentation Yes Health Literacy Communication Barriers N ever Primary Language Swedish Problem List Condition Confirmation Course Effective Dates Status Health St at[facility] Informant ADD (attention deficit disorder) Confirmed Active Depression Confirmed Active Raynaud disease Confirmed Active Diagnosis Diagnosis Type Effective Dates Health Status Clinical Service Informant Body mass index [BMI] 27.0-27.9, adult Discharge Diagnosis 02/20/23 Non-Specified Cough Discharge Diagnosis 02/20/23 Acute recurrent maxillary sinusitis Discharge Diagnosis 02/20/23 ADD (attention deficit disorder) Discharge Diagnosis 02/21/23 Depression Discharge Diagnosis 02/21/23 Procedures Procedure Date Related Diagnosis Body Site Status tonsillectomy 2007 Completed None Completed Vital Signs Most recent to oldest [Reference Range]: 1 Height 161.9 cm (02/20/23 10:12 AM) Patient Weight 72.4 kg (02/20/23 10:12 AM) Body Mass Index 27.62 kg/m2 (02/20/23 10:12 AM) Temperature [36.5-37.9 DegC] 36.8 DegC (02/20/23 10:12 AM) Heart Rate 92 bpm (02/20/23 10:12 AM) Respiratory Rate 20 br/min (02/20/23 10:12 AM) Blood Pressure 118/72mmHg (02/20/23 10:12 AM) Cuff Pulse Pressure 46 mmHg (02/20/23 10:12 AM) BP Location # 1 Left Arm (02/20/23 10:12 AM) Social History Social History Type Response Smoking Status Never smoked cigaret zulyl Sex Female FCM Outpt Note * MD Desiree, [place]: PERFORM Event Display: FCM Outpt Note Authored Date: [id number] Chief Complaint Pt here with c/o occ productive cough ongoing since Jan. Pt states that she is producing green sputum, occ HERNANDEZ, occ post nasal drip, occ SOB History of Present Illness 22 y/o F bad cough since jan 23, went to urgent care 1 week after.Prescribed Augmentin 875 mg 2xa day for 7 days. Symptoms improved slightly and then came back just few days after finishing the antibiotic. States for the past 3 days symptoms getting worse: Productive cough, difficulty breathing, chest and headhurts when coughing. Denies runny nose and congestion, sore throat only when she cough. No hx of asthma, non smoker, No illicit drug use. Tried OTCcough drops but no relief afforded. -ADD and depression. Currently on medications prescribed by psychiatrist. Review of Systems see hpi Physical Exam Vitals & Measurements T:36.8C HR:92(Monitored) RR:20 BP:118/72 SpO2:96% HT:161.9cm WT:72.400kg(Dosing) WT:72.4kg BMI:27.62 PHQ2 Data(Data Documented on:02/20/2023 10:10) Emotional health assessment NEGATIVE General: alert and oriented, no acute distress Eye: PERRL, EOMI, normal conjunctiva HENT: normocephalic, TMs clear, normal hearing, moist oral mucosa, no pharyngeal erythema,+ sinus tenderness, boggy mucosa mild injection. Neck: supple, non-tender, no lymphadenopathy, no thyromegaly Resp: Lungs CTA, non-labored respirations, BS equal, symmetrical expansion CV: normal rate and rhythm, no murmur, no gallop, good pulses GI: soft, non-tender, non-distended, normal bowel sounds, no organomegaly : no CVA tenderness MS: normal ROM, normal strength, no tenderness, no swelling, no deformity, normal gait Integumentary: warm, dry, pink, no cyanosis, intact, moist, no pallor, no rash Neurologic: alert and oriented, normal sensory, normal motor, no focal deficits Psychiatric: calm and cooperative, appropriate mood and affect, normal judgement, non-suicidal Assessment/Plan 1.Acute recurrent maxillary sinusitis Advised to use Flonase 2 sprays on each nostril at night. Antihistamine of choice (Zyrtec, Claritin, Allergra, Xyxal) once a day; saline nasal rinse or netipot as often as possible during day time.May take Ibuprofen or Tylenol as needed for pain. Increase oral fluid intake. 2.Cough Tessalon perles 100 mg 1 tab 3x a day as needed for cough. Azithromycin prescribed. Informed patient that symptoms most likely viral cause. Advised to hold off with antibiotic use for at least 4-5 days. If symptoms worsens or lingers then may start the oral antibiotic. If she ends up taking the antibiotic , advised to take it withfood. Advised to take probiotics while on antibiotic. 3.ADD (attention deficit disorder) Chronic. Stable. Continue medication. Follow up with psychiatrist 4.Depression Chronic. Stable. Continue medication.Follow up with Psychiatrist. Advised to seek immediate consult if with worsening of symptoms or if you develop new symptoms. Attestation A total of 35 minutes were spenton direct patient care, documentation,orders, and chart review. Problem List/Past Medical History Ongoing ADD (attention deficit disorder) Depression Raynaud disease Procedure/Surgical History tonsillectomy (2007)None Medications azithromycin(Zithromax Z-Huber 250 mg oral tablet), See Comments, PO, Daily benzonatate(Tessalon Perles 100 mg oral capsule), 100 mg= 1 cap, PO, tid busPIRone(busPIRone 10 mg oral tablet), 10 mg= 1 tab, PO, bid melatonin(melatonin 10 mg oral tablet), 10 mg= 1 tab, PO, qhs methylphenidate(Concerta 27 mg/24 hr oral tablet, extended [...] Self assessment:Good condition Exercise type:Walking Home/Environment Lives with:[employer] dorm Sexual Sexually active:Yes First active at [...] the next year) OverDue Adult Influenza Vaccine due11/08/22and every 1year Due Adult COVID-19 Vaccination due02/21/23Unknown Frequency Adult Folic Acid Supplementation due02/21/23and every 3year Hepatitis C Screening due02/21/23One-time only Due In Future Body Mass Index not due until02/20/24and every 1year Satisfied(in the past 1 year) Satisfied Body Mass Index on02/20/23.Satisfied by IRIS Nick Erin Electronic Signature on File Electronically Reviewed/Signed by: Joi Ramírez MD Author Signature Dt/Tm:02/21/2023 07:13 PM Department of Family Medicine VS Patient Care team information Care Team Personnel Name: MD Barbara, Paige Suresh Position: Referring DIRECT Member Role: Primary Care Provider Address: Address: [address] [place] [address], [place] [address] [place] Care Team Related Persons Name: MARCOBRITTNEYTELLO Address: home [address] [facility], [place] [id number] Name: NIA TASHIA Howard Address: home [address] [facility], [place] [id number]
[2023-03-24 10:38] LABS: 18KDIGG Band NON-REACTIVE; 23KDIGG Band NON-REACTIVE; 23KDIGM Band REACTIVE; 28KDIGG Band NON-REACTIVE; 30KDIGG Band NON-REACTIVE; 39KDIGG Band NON-REACTIVE; 39KDIGM Band NON-REACTIVE; 41KDIGG Band NON-REACTIVE; 41KDIGM Band NON-REACTIVE; 45KDIGG Band NON-REACTIVE; 58KDIGG Band NON-REACTIVE; 66KDIGG Band NON-REACTIVE; 93KDIGG Band NON-REACTIVE; Lyme Antibodies, WB IgG NEGATIVE (NEGATIVE); Lyme Antibodies, WB IgM NEGATIVE (NEGATIVE)
== END 2023-03-20 16:07 | disposition home or self-care (01) | DRG 866 ==
LOC: ED 10:58 → 1E 22:12 → SUATTDRO 22:14

== ENCOUNTER 2024-11-13 21:41 | Inpatient (IN) ==
[2024-11-13 22:22] LABS: Appearance Urine Clear (Clear); Bacteria Urine Automated None Seen (None Seen); Cast Urine Automated 0-2 /lpf (0-2); Glucose Urine UA Negative (Negative); RBC Urine Automated 0-2 /hpf (0-2); WBC Urine Automated 0-5 /hpf (0-5)
[2024-11-13 22:24] LABS: Hematocrit (blood only) 33.7 % (37.0-47.0); Hemoglobin 11.3 g/dl (12.0-16.0); Immature Granulocytes # (auto) 0.02 K/uL (0.01-0.20); Immature Granulocytes % (auto) 0.2 %; Mean Corpuscular Hemoglobin 28.4 pg (25.0-34.0); Mean Corpuscular Volume 84.7 fL (80.0-100.0); Platelet Count 107 K/uL (130-400); RDW Standard Deviation 39.6 fL (36.4-46.3); Red Blood Count 3.98 M/uL (4.20-5.40); White Blood Count 8.23 K/ul (4.8-10.8)
[2024-11-13 22:39] LABS: Alanine Aminotransferase 12.0 U/L (7-52); Albumin Globulin Ratio 1.1 (0.9-2); Alkaline Phosphatase 155.0 U/L (34-104); Anion Gap 7.0 (3-11); Bilirubin,Total 0.3 mg/dl (0.2-1.0); Blood Urea Nitrogen 12.0 mg/dl (6-23); Calcium 8.7 mg/dl (8.6-10.3); Carbon Dioxide 19.0 mmol/L (21-32); Chloride 110.0 mmol/L (98-107); Creatinine Clr Calc Pharmacy 88.7 ml/min; Globulin 2.8 gm/dl (2.5-4.0); Glucose 78.0 mg/dl (70-99(Fasting)); Magnesium 1.9 mg/dl (1.7-2.4); Potassium 4.1 mmol/L (3.5-5.1); Sodium 136.0 mmol/L (136-145); Total Protein 5.9 gm/dl (6.0-8.3); Uric Acid 6.8 mg/dl (2.6-7.2)
[2024-11-13 22:54] LABS: Thyroid Stimulating Hormone 3.248 uIu/ml (0.300-4.500)
[2024-11-13] MEDS: LABETALOL HCL IV 5 MG/ML 20ML IV STA (22:58)
[2024-11-13] MEDS: SODIUM CHLORIDE 0.9% 1,000 ML IV SCH (22:59)
[2024-11-13] MEDS: MAGNESIUM SULFATE / WTR 40 GM/1,000 ML BAG IV SCH (23:00)
[2024-11-13] MEDS: MAG SULFATE 4GM BOLUS FROM BAG IV ONE (23:18)
[2024-11-13] MEDS: OPTIRAY 320 125ml IV ONE (23:47)
--- NOTE | 2024-11-14 00:23 | CT Scan Report ---
Exam(s): CT HEAD Without Contrast EXAM: CT Head Without Intravenous Contrast CLINICAL HISTORY: Reason for exam: headache, . TECHNIQUE: Axial computed tomography images of the head/brain without intravenous contrast. Automated exposure control was utilized for the study. A dose lowering technique was utilized adhering to the principles of ALARA. COMPARISON: No relevant prior studies available. FINDINGS: Artifact degrades image quality somewhat limiting the exam. Brain: No acute intracranial hemorrhage. No significant white matter disease. No edema. Ventricles: Unremarkable. No ventriculomegaly. Bones/joints: Unremarkable. No acute fracture. Soft tissues: Unremarkable. Sinuses: Unremarkable as visualized. No acute sinusitis. Mastoid air cells: Unremarkable as visualized. No mastoid effusion. IMPRESSION: Unremarkable noncontrast CT scan of the brain. Electronically signed by: Max Hayden MD 11/14/24 00:22 AM
--- NOTE | 2024-11-14 00:27 | History & Physical Report ---
Date of Service November 14, 2024 Assessment & Plan (1) Pre-eclampsia in third trimester: (2) Hypothyroidism: (3) complicated by cardiac condition, antepartum: Plan 24 yyo G1 at 36 2/7 wga now admitted with pre-eclampsia w/ severe features -s/p labetalol 20mg x 1 in ER and mild range bps. Due to persistent 150s will start oral labetalol -PET w/ severe features by blood pressures, labs wnl - platelets noted at 120. UP:C 3. s/p 4g mag bolus in er and now on 2g/hr, gomes catheter. Will start betamethasone course given GA Labor - 35cc gomes bulb placed after consent obtained, will start pit with it GBS P, pcn ordered epidural prn History of Present Illness Chief Complaint: chest pressure, elevated bps Primary Care Provider: Joi Ramírez MD 24 yo G1 at 36 2/7 wga presented to ER due to chest pressure/pain and elevated bp at home. Uneventful , most recently had normal/low bps at her monthly psych appointment on 11/09. Did travel to [place] 2 wks ago for vacation by car. Following her last psych appt, she and did get a home bp cuff and had normotensive bps. This evening, began having chest pressure, intermittent HERNANDEZ and floaters so took BP and was elevated in the 170s so presented to the ER. In the ER, notes continued chest pressure/pain, HERNANDEZ and floaters have since resolved. Denies SOB, RUQ/epigastric pain. Has been having intermittent swelling in ankles as well but not in calf. +FM; denies ctx, LOF, VB. -In the ER, BPs initially 160s-170s/100s-110s and did persist after 15min repeat with appropriate cuff. Discussion was had in the ER due to meeting dx for PET w/ SF for a 4g mag bolus and 2g/hr after as well as IV labetalol 20mg x 1 that did bring BP down to 154/100 while I was in the room. Since then remained 150s/90s-100s in the ED -ER evaluation included normal cbc other than platelets 107, LFTs wnl, Cr wnl. EKG was wnl per ED doc, normal head ct, ct chest/pe protocol pending due to delay in radiology read but prelim w/o obvious saddle emboli per ED doc. 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 hx chlamydia Allergies Allergy/AdvReac Type Severity Reaction Status Date / Time No Known Allergies Allergy Verified 11/03/24 13:03 Home Medications Medication Instructions Recorded Confirmed Type buspirone 10 mg tablet 10 mg PO BID 12/14/18 11/03/24 History trazodone 50 mg tablet 50 mg PO HS 12/14/18 11/03/24 History 21-iron fu-folic acid PO 05/06/24 11/03/24 History [ Complete] levothyroxine 50 mcg tablet 50 mcg PO DAILY #90 tabs 09/20/24 11/03/24 Rx Patient History Medical History Chlamydia Varicella vaccination Raynaud's phenomenon (by history or observed) Chronic low back pain Academic problem Problems with learning Anxiety disorder ADHD, predominantly inattentive type Hematemesis Tachycardia Surgical History History of tonsillectomy and adenoidectomy [place] teeth extracted Family History Unknown Primary nocturnal enuresis Adopted Bipolar disorder Anxiety disorder Brother Attention deficit hyperactivity disorder Mother Stroke Endometriosis Father No problems noted. Uncle Rheumatoid arthritis Denies family history of Ovarian cancer Breast cancer Colorectal cancer Social History Smoking Status: Never smoker Do You Dip or Chew Tobacco: No; Hx Alcohol Use: No Hx Substance Use: No Preferred Language: Serbian Communication Ability: Effective Visual Impairment: No Limitations Hearing Ability: Normal Face Cleaner Required: No Beliefs That Will Affect Care: None marital status: Single marital status details: kamran Rosenbaum (22) [phone] Current Living Situation: Significant Other Current Living Situation Comment: lives with fob, cats-fob changing litter current occupational status: employed current occupation: [employer] Other Information That Helps Us Care for You: No Feels Safe at Home: Yes Safety Concerns: Feels Safe At This Time Childhood Exposure to Second-Hand Smoke: No Dental Care, Regularly: Yes Seatbelt Use: always Sunscreen Use: No Assistive Devices: None Physical Exam Genitourinary: OB Exam Abdomen: + vertex and + estimated weight (6-7) Manual OB Exam: + cervical dilation 1 cm, + cervical effacement 50% and + station -2 OB Exam Monitor Tracing: + external FHT monitor used, + external uterine monitor used and + category I (135/mod/+accel/-decel) Results & Data Vital Signs (Past 12 Hours) Vital Signs Temp Pulse Pulse Resp BP BP Pulse Ox 11/13/24 22:58 71 164/118 H 11/13/24 22:09 91 H 11/13/24 21:58 74 16 97 11/13/24 21:48 98.2 F 82 168/102 H 98 11/13/24 21:41 74 20 164/114 H 97 11/13/24 21:41 11/13/24 21:41 O2 Del Method O2 Flow Rate 11/13/24 22:58 11/13/24 22:09 11/13/24 21:58 Room Air 11/13/24 21:48 Room Air 11/13/24 21:41 Room Air 11/13/24 21:41 Room Air 97 11/13/24 21:41 Room Air Laboratory Results OB Labs: Blood Type A Positive 05/16/24 Antibody Screen NEGATIVE 05/16/24 Hgb 12.1 g/dl (12.0-16.0) 09/21/24 Hct 36.2 % (37.0-47.0) L 09/21/24 MCV 85.1 fL (80.0-100.0) 05/16/24 Plt Count 214 K/uL (130-400) 05/16/24 Rubella IgG Antibody Immune (Immune) 05/16/24 Treponema pallidum Ab Negative (Negative) 09/21/24 Hep Bs Antigen Negative (Negative) 05/16/24 Hepatitis C Antibody Negative (Negative) 05/16/24 HIV 1&2 Ab/P24 Ag 4thGn Negative (Negative) 05/16/24 Glucose 1 Hr 50 gm 131 mg/dl (70-130) H 09/21/24 Maternal Serum AFP 31.8 ng/mL 07/01/24 OB Optional Labs: Chlamydia trachomatis RNA Not Detected (NotDetected) 05/13/24 Neisseria gonorrhoeae RNA Not Detected (NotDetected) 05/13/24 Thyroid Stimulating Hormone (TSH) 1.403 uIu/ml (0.300-4.500) 09/16/24 Alpha Fetoprotein Triple Screen SEE NOTE 07/01/24 Labs Reviewed: [place] 14-negative--mln cfdna-low risk--mln neg afp - sln GBS P 11/14/24 11/14/24 11/13/24 Range/Units 01:55 01:12 22:06 WBC 9.46 8.23 (4.8-10.8) K/ul RBC 3.99 L 3.98 L (4.20-5.40) M/uL Hgb 11.2 L 11.3 L (12.0-16.0) g/dl Hct 33.4 L 33.7 L (37.0-47.0) % MCV 83.7 84.7 (80.0-100.0) fL MCH 28.1 28.4 (25.0-34.0) pg MCHC 33.5 33.5 (32.0-36.0) g/dL RDW Std Deviation 39.3 39.6 (36.4-46.3) fL RDW Coeff of [place] 12.9 13.0 (11.5-14.5) % Plt Count 120 L 107 L (130-400) K/uL MPV 11.5 11.4 (9.4-12.4) fL Immature Gran % (Auto) 0.2 % Neut % (Auto) 56.4 % Lymph % (Auto) 35.1 % [place] % (Auto) 7.5 % Eos % (Auto) 0.6 % Baso % (Auto) 0.2 % Neut # (Auto) 4.63 (1.40-6.50) K/uL Lymph # (Auto) 2.89 (1.20-3.40) K/uL [place] # (Auto) 0.62 H (0.11-0.59) K/uL Eos # (Auto) 0.05 (0.00-0.50) K/uL Baso # (Auto) 0.02 (0.00-0.20) K/uL Immature Gran # (Auto) 0.02 (0.01-0.20) K/uL Sodium 136 (136-145) mmol/L Potassium 4.1 (3.5-5.1) mmol/L Chloride 110 H (98-107) mmol/L Carbon Dioxide 19 L (21-32) mmol/L Anion Gap 7 (3-11) BUN 12 (6-23) mg/dl Creatinine 0.95 (0.6-1.2) mg/dl Est Cr Clr Drug Dosing 88.7 ml/min eGFR 86.88 BUN/Creatinine Ratio 12.6 (10-20) Glucose 78 (70-99(Fasting)) mg/dl Uric Acid 6.8 (2.6-7.2) mg/dl Calcium 8.7 (8.6-10.3) mg/dl Magnesium 1.9 (1.7-2.4) mg/dl Total Bilirubin 0.3 (0.2-1.0) mg/dl AST 17 (13-39) U/L ALT 12 (7-52) U/L Alkaline Phosphatase 155 H (34-104) U/L Lactate Dehydrogenase 178 (86-244) U/L Troponin I High Sens 6.3 (0-14) pg/ml Total Protein 5.9 L (6.0-8.3) gm/dl Albumin 3.1 L (3.4-5.0) gm/dl Globulin 2.8 (2.5-4.0) gm/dl Albumin/Globulin Ratio 1.1 (0.9-2) TSH 3.248 (0.300-4.500) uIu/ml Urine Color Yellow Urine Appearance Clear (Clear) Urine pH 6.0 (4.5-7.5) Ur Specific [place] 1.008 (1.000-1.030) Urine Protein 3+ H (Negative) Urine Glucose (UA) Negative (Negative) Urine Ketones Negative (Negative) Urine Blood Negative (Negative) Urine Nitrite Negative (Negative) Urine Bilirubin Negative (Negative) Urine Urobilinogen Negative (Negative) Ur Leukocyte Esterase Negative (Negative) Urine WBC (Auto) 0-5 (0-5) /hpf Urine RBC (Auto) 0-2 (0-2) /hpf U Hyaline Cast (Auto) 0-2 (0-2) /lpf U Epithel Cells (Auto) 3-5 H (0-2) /hpf Urine Bacteria (Auto) None Seen (None Seen) Ur Random Creatinine 47.5 mg/dl U Random Total Protein 142.7 H (0-11.9) mg/dl Protein/Creatinin Ratio 3.0 H (0-0.2) Urine Comment Treponema pallidum Ab Negative (Negative) Coding Level of Care Code None Diagnoses Pre-eclampsia in third trimester O14.93 Hypothyroidism E03.9 complicated by cardiac condition, antepartum O99.419; I51.9
[2024-11-14] MEDS ORDERED: LIDOCAINE 1% LOCAL 20 ML VIAL INFIL PRN (01:03)
[2024-11-14] MEDS ORDERED: LACTATED RINGER'S 1,000 ML IV PRN (01:03)
[2024-11-14] MEDS ORDERED: OXYTOCIN 30 UNITS/NSS 30 UNITS/500 ML BAG IV PRN (01:03)
--- NOTE | 2024-11-14 01:23 | Emergency Department Note ---
Impression & Plan Pre-eclampsia in third trimester ED Provider Note NAME: KIM KRAMER AGE: 24 SEX: Female INFORMANT: Patient ED PROVIDER(S): Bravo Scherer MD CHIEF COMPLAINT: Hypertension in PLAN: Disposition: Admitted Outpatient prescription management: none Referral: None MEDICAL DECISION MAKING: Patient presented because of hypertension. She was in her third trimester . On arrival she was quite hypertensive and record review indicates this was a new issue for her. Patient had a nonfocal neurologic examination. Her leg swelling and travel to [place] did raise concerns when coupled with her chest discomfort. Her ECG not show any acute findings. Patient had an unremarkable CBC except for slight anemia which would be not expected at this point in . Her chemistry panels were unremarkable. Urinalysis did show proteinuria. LDH and uric acid were normal. Consultation was made promptly with Nancy Sheehan [employer], . Case was discussed and diagnostics were reviewed. She did recommend initiation of magnesium bolus and drip as well as IV labetalol. These medications were ordered and given. I did discuss the need for CT imaging. We agreed that CT imaging of the head and chest for PE was appropriate and this was done. Head CT did not reveal any significant findings. We also discussed the need for ultrasound imaging of the lower extremities given the travel and ankle swelling. I did coordinate with ultrasound to have this done at bedside. [employer] would like the patient to proceed to labor and delivery for further evaluation and management. Ultrasound can perform testing there. Patient's blood pressure was still elevated but has improved. Clinically she is doing well. I refer you to the EMR for further details. 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 Vital Signs: reviewed and remarkable for significant hypertension Additional History obtained from: Significant other Chronic Medical/Social Conditions affecting care: Prior/ Outside/ External records reviewed: Prior [employer] office visit blood pressures reviewed. Patient has never been hypertensive with this . Differential Diagnosis: Preeclampsia, eclampsia,Benign hypertension, hypertensive emergency, cardiovascular pathology, toxicologic, pheochromocytoma, electrolyte abnormality, renal disease, endorgan damage, ICH, neurologic as well as other pathologies. Diagnostics, independently interpreted by me: EC-lead ECG reveals a sinus rhythm with sinus arrhythmia at 70 bpm. Possible inferior Q waves. Cardiac Monitoring: Cardiac monitoring ordered by me: The patient was placed on continuous cardiac monitoring and observed. It revealed a normal sinus rhythm at 84 beats per minute without ectopy or evidence of dysrhythmia. Medical decision rules: none Imaging studies: Head CT: A noncontrast CT scan of the head was performed and was negative for tumor, fracture, intracranial hemorrhage, or other acute pathology. Chest x-ray. Findings: A chest x-ray was performed and revealed no pneumothorax, effusion, infiltrate, pulmonary edema, free air under the diaphragm, or wide mediastinum. Impression: No acute disease. HPI: 24 year old G1, P0 female arrives for evaluation of high blood pressure in . Patient notes that she typically has low blood pressure and she was not feeling well tonight and took her blood pressure and it was in the 170s. She had some ankle swelling developing over the last 2 weeks since coming back from a trip to [place]. She also noted some shortness of breath and chest pressure. She has had intermittent headaches for several days. No thunderclap or sudden onset of the headache. She notes no headache at this time. At their worst headaches get about a 5 out of 10. She is also had some hot flash sensations over the last several days. Pt denies LOC, current headache, fevers, chills, diaphoresis, visual changes, neck pain, lack of movement, vaginal bleeding, vaginal fluid leaking nausea, vomiting, abdominal pain, back pain, melena, hematochezia, urinary symptoms, numbness, weakness, rash, or other complaints. PAST MEDICAL HISTORY: See Below, hypothyroidism PAST SURGICAL HISTORY: See Below, SOCIAL HISTORY: See Below, non-smoker HOME MEDICATIONS: See Below ALLERGIES: See Below VITALS: See Below PHYSICAL EXAMINATION: GENERAL: Awake, alert, well-appearing, in no distress HENT: Normocephalic, atraumatic. Oropharynx unremarkable. EYES: Normal conjunctiva. Sclera non-icteric. PERRLA. EOMI. NECK: Inspection normal. Non-tender. Supple. No nuchal rigidity. FROM. No masses. RESPIRATORY: Clear to auscultation. No wheezes. No rales. Normal respiratory effort. CARDIAC: Normal rate. Normal rhythm. No murmurs. No rubs. Extremities warm and well perfused. Pulses equal. No JVD. GI: Soft, gravid. No tenderness to palpation. No rebound or guarding. No masses. RECTAL: Deferred. MUSCULOSKELETAL: Atraumatic. Chest examination reveals no tenderness. The back is symmetrical on inspection without obvious abnormality. There is no CVA tenderness to palpation. No joint edema. LOWER EXTREMITIES: Calves are equal size bilaterally and non-tender. No edema. No discoloration. NEURO: Normal sensorium. No sensory or motor deficits noted. Speech normal. Cranial nerves II through XII intact. Normal rapid alternating movements. Normal pwne-tc-byxo. No drift. SKIN: No rash or jaundice noted. PROCEDURES: none CRITICAL CARE: I have personally spent 30 minutes of critical care time in the direct management of this patient. This includes bedside care, interpretation of diagnostic studies, and testing, discussion with consultants, patient, and family members, and other required patient management activities. These minutes are in excess of all separately billable procedures. OBSERVATION NOTE: none Past Med/Surg History Problem List (Updated 11/14/24 @ 01:18 by Bravo Scherer MD) Pre-eclampsia in third trimester (Acute) Hypothyroidism Sinus tachycardia complicated by cardiac condition, antepartum Heart murmur Encounter for anatomic survey Early stage of Supervision of normal first Medical History Chlamydia Varicella vaccination Raynaud's phenomenon (by history or observed) Chronic low back pain Academic problem Problems with learning Anxiety disorder ADHD, predominantly inattentive type Hematemesis Tachycardia Surgical History History of tonsillectomy and adenoidectomy [place] teeth extracted Family History Unknown Primary nocturnal enuresis Adopted Bipolar disorder Anxiety disorder Brother Attention deficit hyperactivity disorder Mother Stroke Endometriosis Father No problems noted. Uncle Rheumatoid arthritis Denies family history of Ovarian cancer Breast cancer Colorectal cancer Social History Smoking Status: Never smoker Do You Dip or Chew Tobacco: No; Hx Alcohol Use: Yes Hx Substance Use: No Preferred Language: [place]itanian Communication Ability: Effective Visual Impairment: No Limitations Hearing Ability: Normal Beliefs That Will Affect Care: None marital status: Single marital status details: kamran Rosenbaum (22) [phone] Current Living Situation: Significant Other Current Living Situation Comment: lives with fob, cats-fob changing litter current occupational status: employed current occupation: [employer] Feels Safe at Home: Yes Childhood Exposure to Second-Hand Smoke: No Dental Care, Regularly: Yes Seatbelt Use: always Sunscreen Use: No Assistive Devices: None Allergies Allergies Allergy/AdvReac Type Severity Reaction Status Date / Time No Known Allergies Allergy Verified 11/03/24 13:03 Home Meds Home Medications Medication Instructions Recorded Confirmed buspirone 10 mg tablet 10 mg PO BID 12/14/18 11/03/24 trazodone 50 mg tablet 50 mg PO HS 12/14/18 11/03/24 21-iron fu-folic acid PO 05/06/24 11/03/24 [ Complete] Previous Rx's Medication Instructions Recorded levothyroxine 50 mcg tablet 50 mcg PO DAILY #90 tabs 09/20/24 Results & Data (ED) Vital Signs Vital Signs - 24 hr 11/13/24 21:41 11/13/24 21:41 11/13/24 21:41 Temperature Temperature Source Pulse Rate Pulse Rate [Finger] 74 Pulse Rhythm Pulse Rhythm [Finger] Regular Pulse Strength [Finger] Normal Respiratory Rate 20 Respiratory Effort / Characteristics Non-Labored Respiratory Depth Normal Normal Blood Pressure Blood Pressure [Right Arm] 164/114 H Blood Pressure Mean Blood Pressure Mean [Right Arm] 130 Pulse Oximetry 97 Oxygen Delivery Method Room Air Room Air Room Air Oxygen Flow Rate 97 Sepsis Recent Fever Within 48 Hours Sepsis New/Unexplained Change in Mental Status Sepsis Action Taken by Nursing 11/13/24 21:48 11/13/24 21:58 11/13/24 22:09 Temperature 36.8 C Temperature Source Temporal Artery Scan Pulse Rate 82 74 91 H Pulse Rate [Finger] Pulse Rhythm Regular Pulse Rhythm [Finger] Pulse Strength [Finger] Respiratory Rate 16 Respiratory Effort / Characteristics Respiratory Depth Blood Pressure 168/102 H Blood Pressure [Right Arm] Blood Pressure Mean 124 Blood Pressure Mean [Right Arm] Pulse Oximetry 98 97 Oxygen Delivery Method Room Air Room Air Oxygen Flow Rate Sepsis Recent Fever Within 48 Hours No Sepsis New/Unexplained Change in Mental Status No Sepsis Action Taken by Nursing No Action Required 11/13/24 22:58 Temperature Temperature Source Pulse Rate 71 Pulse Rate [Finger] Pulse Rhythm Pulse Rhythm [Finger] Pulse Strength [Finger] Respiratory Rate Respiratory Effort / Characteristics Respiratory Depth Blood Pressure 164/118 H Blood Pressure [Right Arm] Blood Pressure Mean Blood Pressure Mean [Right Arm] Pulse Oximetry Oxygen Delivery Method Oxygen Flow Rate Sepsis Recent Fever Within 48 Hours Sepsis New/Unexplained Change in Mental Status Sepsis Action Taken by Nursing Laboratory Data 11/14/24 01:12 11/13/24 22:06 Lab Results 11/13/24 Range/Units 22:06 WBC 8.23 (4.8-10.8) K/ul RBC 3.98 L (4.20-5.40) M/uL Hgb 11.3 L (12.0-16.0) g/dl Hct 33.7 L (37.0-47.0) % MCV 84.7 (80.0-100.0) fL MCH 28.4 (25.0-34.0) pg MCHC 33.5 (32.0-36.0) g/dL RDW Std Deviation 39.6 (36.4-46.3) fL RDW Coeff of [place] 13.0 (11.5-14.5) % Plt Count 107 L (130-400) K/uL MPV 11.4 (9.4-12.4) fL Immature Gran % (Auto) 0.2 % Neut % (Auto) 56.4 % Lymph % (Auto) 35.1 % [place] % (Auto) 7.5 % Eos % (Auto) 0.6 % Baso % (Auto) 0.2 % Neut # (Auto) 4.63 (1.40-6.50) K/uL Lymph # (Auto) 2.89 (1.20-3.40) K/uL [place] # (Auto) 0.62 H (0.11-0.59) K/uL Eos # (Auto) 0.05 (0.00-0.50) K/uL Baso # (Auto) 0.02 (0.00-0.20) K/uL Immature Gran # (Auto) 0.02 (0.01-0.20) K/uL Sodium 136 (136-145) mmol/L Potassium 4.1 (3.5-5.1) mmol/L Chloride 110 H (98-107) mmol/L Carbon Dioxide 19 L (21-32) mmol/L Anion Gap 7 (3-11) BUN 12 (6-23) mg/dl Creatinine 0.95 (0.6-1.2) mg/dl Est Cr Clr Drug Dosing 88.7 ml/min eGFR 86.88 BUN/Creatinine Ratio 12.6 (10-20) Glucose 78 (70-99(Fasting)) mg/dl Uric Acid 6.8 (2.6-7.2) mg/dl Calcium 8.7 (8.6-10.3) mg/dl Magnesium 1.9 (1.7-2.4) mg/dl Total Bilirubin 0.3 (0.2-1.0) mg/dl AST 17 (13-39) U/L ALT 12 (7-52) U/L Alkaline Phosphatase 155 H (34-104) U/L Lactate Dehydrogenase 178 (86-244) U/L Troponin I High Sens 6.3 (0-14) pg/ml Total Protein 5.9 L (6.0-8.3) gm/dl Albumin 3.1 L (3.4-5.0) gm/dl Globulin 2.8 (2.5-4.0) gm/dl Albumin/Globulin Ratio 1.1 (0.9-2) TSH 3.248 (0.300-4.500) uIu/ml Urine Color Yellow Urine Appearance Clear (Clear) Urine pH 6.0 (4.5-7.5) Ur Specific [place] 1.008 (1.000-1.030) Urine Protein 3+ H (Negative) Urine Glucose (UA) Negative (Negative) Urine Ketones Negative (Negative) Urine Blood Negative (Negative) Urine Nitrite Negative (Negative) Urine Bilirubin Negative (Negative) Urine Urobilinogen Negative (Negative) Ur Leukocyte Esterase Negative (Negative) Urine WBC (Auto) 0-5 (0-5) /hpf Urine RBC (Auto) 0-2 (0-2) /hpf U Hyaline Cast (Auto) 0-2 (0-2) /lpf U Epithel Cells (Auto) 3-5 H (0-2) /hpf Urine Bacteria (Auto) None Seen (None Seen) Urine Comment Administered Medications Sodium Chloride (Nss) 1,000 mls @ 125 mls/hr IV .Q8H NAREN Stop: 11/14/24 05:59 Last Admin: 11/13/24 22:59 Dose: 125 mls/hr Documented By: CANDACE Magnesium Sulfate (Magnesium Sulfate / Wtr) 40 gm in 1,000 mls @ 50 mls/hr IV .Q20H NAREN Stop: 12/13/24 22:29 Last Admin: 11/13/24 23:18 Dose: 50 mls/hr Documented By: CANDACE Co-signed By: RADHA Infusion: 11/13/24 23:18 Dose: Infused Documented By: CANDACE Co-signed By: RADHA Admin: 11/13/24 23:00 Dose: 50 mls/hr Documented By: CANDACE Co-signed By: RADHA Discontinued Medications Ioversol (Optiray 320 125ml) 118 ml IV ONCE ONE Stop: 11/13/24 23:47 Last Admin: 11/13/24 23:47 Dose: 118 ml Documented By: GISELLE Labetalol HCl (Labetalol Hcl Iv 5 Mg/Ml 20ml) 20 mg IV ONCE STA Stop: 11/13/24 22:18 Last Admin: 11/13/24 22:58 Dose: 20 mg Documented By: CANDACE Magnesium Sulfate (Mag Sulfate 4gm Bolus From Bag) 4 gm IV ONE ONE Stop: 11/13/24 22:18 Last Admin: 11/13/24 23:18 Dose: 4 gm Documented By: CANDACE Co-signed By: RADHA Imaging Data Radiologist's Impression: Chest X-Ray 11/13/24 21:58 Exam(s): XR CXR 1 VIEW EXAM: XR Chest, 1 View CLINICAL HISTORY: Reason for exam: weakness. TECHNIQUE: Frontal view of the chest. COMPARISON: 03/18/2023 FINDINGS: Lungs: No consolidation. Pleural space: No pleural effusion is seen. No pneumothorax. Heart: Heart is top normal in size.. Mediastinum: Unremarkable. Bones/joints: Unremarkable. IMPRESSION: No acute pulmonary disease. Findings appears similar to previous exam Electronically signed by: Max Hayden MD 11/14/24 01:[address] 11/13/24 21:58 Exam(s): CT HEAD Without Contrast EXAM: CT Head Without Intravenous Contrast CLINICAL HISTORY: Reason for exam: headache, . TECHNIQUE: Axial computed tomography images of the head/brain without intravenous contrast. Automated exposure control was utilized for the study. A dose lowering technique was utilized adhering to the principles of ALARA. COMPARISON: No relevant prior studies available. FINDINGS: Artifact degrades image quality somewhat limiting the exam. Brain: No acute intracranial hemorrhage. No significant white matter disease. No edema. Ventricles: Unremarkable. No ventriculomegaly. Bones/joints: Unremarkable. No acute fracture. Soft tissues: Unremarkable. Sinuses: Unremarkable as visualized. No acute sinusitis. Mastoid air cells: Unremarkable as visualized. No mastoid effusion. IMPRESSION: Unremarkable noncontrast CT scan of the brain. Electronically signed by: Max Hayden MD 11/14/24 00:22 AM Chest CTA 11/13/24 22:49 Exam(s): CTA CHEST IV Amt: 118 cc opti 320 EXAM: CT Angiography Chest With Intravenous Contrast CLINICAL HISTORY: Reason for exam: Chest pain, 36 wks, eval for PE. TECHNIQUE: Axial computed tomographic angiography images of the chest with intravenous contrast. CTDI is 20.21 mGy and DLP is 561.6 mGy-cm. Automated exposure control was utilized for the study. A dose lowering technique was utilized adhering to the principles of ALARA. MIP reconstructed images were created and reviewed. COMPARISON: No relevant prior studies available. FINDINGS: Pulmonary arteries: No pulmonary embolism is seen. Aorta: No thoracic aortic aneurysm. Lungs: No consolidation. There is a 4 mm nodule noted left lower lobe (series 3, image 47). Pleural space: No significant effusion. No pneumothorax. Heart: The heart is top normal in size. Bones/joints: No acute fracture. No dislocation. Soft tissues: Unremarkable. Lymph nodes: No enlarged lymph nodes. IMPRESSION: No pulmonary embolism is seen. There is a 4 mm nodule noted left lower lobe . This is of unknown etiology. Recommend follow-up as prescribed by the [employer]. Electronically signed by: Max Hayden MD 11/14/24 01:22 AM Discharge Plan Visit Data Chief Complaint: Shortness of Breath/Dyspnea Stated Complaint: 36 WKS PREG - SOB,HEADACHE,SWELLING,FLOATERS ED Provider: Bravo Scherer Discharge Problem: Pre-eclampsia in third trimester Patient Disposition: Admitted As Inpatient Condition: Serious Discharge Instructions Interventions: ED Discharge Assessment Last Done: 11/14/24 01:20
[2024-11-14 01:28] LABS: Hematocrit (blood only) 33.4 % (37.0-47.0); Hemoglobin 11.2 g/dl (12.0-16.0); Mean Corpuscular Hemoglobin 28.1 pg (25.0-34.0); Mean Corpuscular Volume 83.7 fL (80.0-100.0); Platelet Count 120 K/uL (130-400); RDW Standard Deviation 39.3 fL (36.4-46.3); Red Blood Count 3.99 M/uL (4.20-5.40); White Blood Count 9.46 K/ul (4.8-10.8)
--- NOTE | 2024-11-14 01:28 | XRay Report ---
Exam(s): XR CXR 1 VIEW EXAM: XR Chest, 1 View CLINICAL HISTORY: Reason for exam: weakness. TECHNIQUE: Frontal view of the chest. COMPARISON: 03/18/2023 FINDINGS: Lungs: No consolidation. Pleural space: No pleural effusion is seen. No pneumothorax. Heart: Heart is top normal in size.. Mediastinum: Unremarkable. Bones/joints: Unremarkable. IMPRESSION: No acute pulmonary disease. Findings appears similar to previous exam Electronically signed by: Max Hayden MD 11/14/24 01:27 AM
[2024-11-14 02:59] LABS: Protein Creatinine Ratio Urine 3.0 (0-0.2); Total Protein Urine Random 142.7 mg/dl (0-11.9)
[2024-11-14] MEDS ORDERED: BETAMETH SOD PHOS/ACETATE IA 6 MG/ML IM STA (03:14)
[2024-11-14] MEDS: LABETALOL HCL 200 MG TAB PO SCH (03:19)
[2024-11-14] MEDS: LACTATED RINGER'S 1,000 ML IV SCH (03:20)
[2024-11-14] MEDS: PENICILLIN GK 6 MU in DEXTROSE 5% 250 ML IV STA (03:25)
--- NOTE | 2024-11-14 03:38 | Ultrasound Report ---
EXAM: US venous doppler LE BI CLINICAL HISTORY: LE swelling, 36 wks , travel TECHNIQUE: Ultrasound examination of bilateral lower extremity veins was performed in real-time and duplex. One or more of the following were performed - spectral analysis, resistive index, waveform analysis, and pulsed Doppler. COMPARISON: None. FINDINGS: Normal phasic, non-pulsatile, and spontaneous flow is noted in bilateral common femoral, superficial femoral, popliteal, as well as anterior, posterior tibial, and peroneal veins. Visualized veins of both lower extremities demonstrate normal compressibility. No sonographic evidence of acute deep vein thrombosis (DVT) is detected in the visualized veins of both lower extremities. Compression and Augmentation: All evaluated veins compress fully with applied transducer pressure. Augmentation of venous flow is noted with distal compression. Additional Findings: No evidence of intraluminal thrombus. IMPRESSION: No sonographic evidence of acute DVT was detected in the bilateral common femoral, superficial femoral, popliteal, as well as anterior, posterior tibial, and peroneal veins, at the time of examination. Disclaimer: DVT could be missed early in the disease when clot burden is minimal. For patients with moderate and high pretest probability of DVT and negative ultrasound, the [employer] clinical guidelines recommend testing with a D-dimer assay or repeat ultrasound in 5-7 days. If symptoms worsen, the Society of Radiologists in Ultrasound recommends repeating ultrasound even earlier. Electronically signed by Ben Zaldivar 11-14-2024 03:37 AM
[2024-11-14] MEDS: LABETALOL HCL IV 5 MG/ML 20ML IV STA ×2 (03:43→04:22)
[2024-11-14] MEDS: BETAMETH SOD PHOS/ACETATE IA 6 MG/ML IM ONE (03:50)
[2024-11-14] MEDS: OXYTOCIN 30 UNITS/NSS 30 UNITS/500 ML BAG IV PRN (04:29)
[2024-11-14] MEDS: PENICILLIN GK 3 MU in DEXTROSE 5% 100 ML IV PRN (08:17)
[2024-11-14] MEDS ORDERED: PROMETHAZINE 6.25 MG/50.25 ML BAG IV PRN ×2 (08:41→23:06)
[2024-11-14] MEDS ORDERED: BUPIVACAINE 0.25% PF 30 ML VIAL EPI PRN (08:41)
[2024-11-14] MEDS ORDERED: LIDOCAINE 2% MPF LOCAL 5 ML VIAL EPI PRN (08:41)
[2024-11-14] MEDS ORDERED: NALBUPHINE HCL INJ 10 MG/ML AMP IV PRN ×2 (08:41→23:06)
[2024-11-14] MEDS ORDERED: ROPIVACAINE 0.5% PF 5 MG/ML 20 ML VIAL EPI PRN (08:41)
[2024-11-14] MEDS ORDERED: NALOXONE HCL 1 MG in SODIUM CHLORIDE 0.9% 1,000 ML IV PRN ×2 (08:41→23:06)
[2024-11-14] MEDS ORDERED: SODIUM CHLORIDE 0.9% PF INJ 10 ML VIAL EPI PRN (08:41)
[2024-11-14] MEDS ORDERED: NALOXONE HCL 0.4 MG/1 ML VIAL/CARP IV PRN ×2 (08:41→23:06)
[2024-11-14] MEDS: BUPIVACAINE 0.25% PF 30 ML VIAL ONE (09:03)
[2024-11-14] MEDS: SODIUM CHLORIDE 0.9% PF INJ 10 ML VIAL ONE (09:04)
[2024-11-14] MEDS: fentANYL 2 MCG/ML BUPIVacaine 0.125%-NSS 100ML BAG ONE (09:04)
[2024-11-14] MEDS: BUPIVACAINE 0.25% PF 30 ML VIAL EPI STA (10:09)
[2024-11-14] MEDS: LIDOCAINE 2%/EPINEPHRINE 1:200,000 20 ML PF ONE (10:09)
[2024-11-14] MEDS: LIDOCAINE 2%/EPINEPHRINE 1:200,000 20 ML PF EPI STA (10:10)
[2024-11-14] MEDS: SODIUM CHLORIDE 0.9% PF INJ 10 ML VIAL EPI STA (10:10)
[2024-11-14] MEDS: ONDANSETRON INJ 2 MG/ML 2 ML VIAL IV PRN (11:02)
--- NOTE | 2024-11-14 15:17 | Anesthesiology Consultation ---
Date of Service November 14, 2024 Assessment & Plan Chart Review Chart Review: Patient NOT seen in Pre Admission Testing and Acceptable Risk for Labor Epidural Consults Requested none ASA ASA3 Proposed Anesthesia Anesthesia Type: Labor Epidural Risk / Benefits Reviewed With: PT / POA / Parent / Guardian, Accepts Plan and Informed Consent Obtained History Height/Weight Height: 5 ft 3 in Weight: 72.7 kg Allergies Allergy/AdvReac Type Severity Reaction Status Date / Time No Known Allergies Allergy Verified 11/03/24 13:03 Medications Home Medications Medication Instructions Recorded Confirmed Last Taken buspirone 10 mg tablet 10 mg PO BID 12/14/18 11/03/24 03/18/23 08:00 trazodone 50 mg tablet 50 mg PO HS 12/14/18 11/03/24 03/17/23 21-iron fu-folic acid PO 05/06/24 11/03/24 Unknown [ Complete] levothyroxine 50 mcg tablet 50 mcg PO DAILY #90 tabs 09/20/24 11/03/24 Unknown Active Medications Generic Name Dose Route Start Last Admin Trade Name Freq PRN Reason Stop Dose Admin Magnesium Sulfate 40 gm in 1,000 mls @ 50 mls/hr 11/13/24 22:30 11/14/24 07:08 Magnesium Sulfate / Wtr IV 12/13/24 22:29 50 mls/hr .Q20H NAREN Infusion Penicillin G Potassium 3 mu/ 106 mls @ 100 mls/hr 11/14/24 03:22 11/14/24 12:34 Dextrose IV 11/24/24 03:21 100 mls/hr Q4H PRN Administration GBS(+) Until Delivery Lactated Ringer's 1,000 mls @ 75 mls/hr 11/14/24 02:00 11/14/24 10:16 Lr IV 11/17/24 01:59 75 mls/hr .[id number] NAREN Infusion Oxytocin 30 units in 500 mls @ 14 mls/hr 11/14/24 03:23 11/14/24 14:50 Pitocin 30 Units/Nss IV 11/16/24 03:22 0.84 units/hr .Q24H PRN 14 mls/hr Labor Induction/Augmentation Titration Protocol 0.84 UNITS/HR Labetalol HCl 200 mg 11/14/24 03:00 11/14/24 10:13 Labetalol Hcl 200 Mg Tab PO 12/14/24 02:59 200 mg Q12 NAREN Administration Ondansetron HCl 4 mg 11/14/24 08:41 11/14/24 11:02 Ondansetron Inj 2 Mg/Ml 2 Ml Vial IV 11/15/24 08:40 4 mg Q6H PRN Administration Nausea &/or Vomiting Past Medical History Medical History Chlamydia Varicella vaccination Raynaud's phenomenon (by history or observed) Chronic low back pain Academic problem Problems with learning Anxiety disorder ADHD, predominantly inattentive type Hematemesis Tachycardia Exercise / Class Metabolic Activity II 4-5 Yardwork/Stairs/Walk up hill Past Family History Family History Unknown Primary nocturnal enuresis Adopted Bipolar disorder Anxiety disorder Brother Attention deficit hyperactivity disorder Mother Stroke Endometriosis Father No problems noted. Uncle Rheumatoid arthritis Denies family history of Ovarian cancer Breast cancer Colorectal cancer Past Surgical History Surgical History History of tonsillectomy and adenoidectomy [place] teeth extracted Past Anesthesia History No Hx of Anesthesia Complications and No Family Hx of Anesthesia Complications History of PONV No Hx of PONV and No Hx of Motion Sickness Social History Smoking Status: Never smoker Do You Dip or Chew Tobacco: No Hx Alcohol Use: No alcohol intake frequency: a few times a month Hx Substance Use: No Physical Exam Vital Signs Last Vital Signs Temp 36.7 C 11/14/24 13:20 Pulse 99 H 11/14/24 15:13 Resp 17 11/14/24 14:30 BP 145/91 H 11/14/24 15:13 Pulse Ox 97 11/14/24 15:13 O2 Del Method Room Air 11/14/24 08:00 O2 Flow Rate 97 11/13/24 21:41 ENMT Mouth: no dentition abnormality Thyromental Distance: > or= 3.5 Finger Breadths Mallampati Class: II Neck normal visual inspection Respiratory normal respiratory effort Auscultation: lungs clear to auscultation bilaterally Cardiovascular Rate/Rhythm: regular rate and regular rhythm Psychiatric Orientation: alert Testing Laboratory Results 11/14/24 01:12 11/13/24 22:06 Urine Color Yellow 11/13/24 22:06 Urine Appearance Clear (Clear) 11/13/24 22:06 Urine pH 6.0 (4.5-7.5) 11/13/24 22:06 Ur Specific [place] 1.008 (1.000-1.030) 11/13/24 22:06 Urine Protein 3+ (Negative) H 11/13/24 22:06 Urine Glucose (UA) Negative (Negative) 11/13/24 22:06 Urine Ketones Negative (Negative) 11/13/24 22:06 Urine Nitrite Negative (Negative) 11/13/24 22:06 Ur Leukocyte Esterase Negative (Negative) 11/13/24 22:06 Urine WBC (Auto) 0-5 /hpf (0-5) 11/13/24 22:06 Urine RBC (Auto) 0-2 /hpf (0-2) 11/13/24 22:06 U Hyaline Cast (Auto) 0-2 /lpf (0-2) 11/13/24 22:06 U Epithel Cells (Auto) 3-5 /hpf (0-2) H 11/13/24 22:06 Urine Bacteria (Auto) None Seen (None Seen) 11/13/24 22:06 11/13/24 22:20 POC Glucose (other) 77
--- NOTE | 2024-11-14 17:42 | Labor Progress Brief Note ---
Date of Service November 14, 2024 Subjective Interim event summary: Tracy bulb fell out this morning, and pitocin continued through the day. Mid-day, AROM was performed. At that time pitocin was halted for a 30min break to assess the effect of ROM, and then pit was restarted at 10mu/min (half the prior rate). Pit climbed back to 20mu/min and I then went to examine the patient. She is unchanged from the time of ROM to now, at 5/50/-2 with clear LOF ongoing. FHT Cat 1 Gross Q2-3 with pit @ 20. IUPC placed after verbal consent obtained. Initial IUPC pulled out of position while being secured, and a replacement IUPC was then placed. Amniotic fluid (clear) in IUPC tubing, and initial MVU look sub-adequate. Will increase pitocin maximum rate to 30. Magnesium, oral Labetalol both continue. BMTZ started yesterday and repeat due at 24hr. Assessment & Plan Admission and Anticipated Discharge Date Admission Date: November 14, 2024 Results & Data Vital Signs (Past 12 Hours) Vital Signs Temp Pulse Resp BP Pulse Ox O2 Del Method 11/14/24 17:38 112 H 96 11/14/24 17:33 104 H 96 11/14/24 17:28 104 H 148/96 H 96 11/14/24 17:23 110 H 97 11/14/24 17:18 111 H 97 11/14/24 17:13 96 11/14/24 17:13 109 H 11/14/24 17:13 108 H 146/98 H 11/14/24 17:08 107 H 96 11/14/24 17:03 109 H 96 11/14/24 16:58 110 H 145/102 H 96 11/14/24 16:53 105 H 96 11/14/24 16:48 109 H 95 11/14/24 16:47 108 H 94 11/14/24 16:43 95 11/14/24 16:43 109 H 11/14/24 16:43 102 H 148/95 H 11/14/24 16:38 103 H 96 11/14/24 16:33 99 H 95 11/14/24 16:28 95 11/14/24 16:28 101 H 11/14/24 16:28 100 H 143/91 H 11/14/24 16:23 100 H 96 07/07/25 16:19 105 H 94 11/14/24 16:18 105 H 95 11/14/24 16:13 93 11/14/24 16:13 104 H 11/14/24 16:13 105 H 140/97 94 11/14/24 16:11 98.2 F 19 11/14/24 16:08 101 H 94 11/14/24 16:06 101 H 94 11/14/24 16:03 102 H 97 11/14/24 15:58 97 11/14/24 15:58 99 H 11/14/24 15:58 100 H 148/95 H 11/14/24 15:53 101 H 97 11/14/24 15:48 93 H 96 11/14/24 15:43 89 136/88 96 11/14/24 15:38 98 H 97 11/14/24 15:33 96 H 96 11/14/24 15:30 19 11/14/24 15:28 96 11/14/24 15:28 97 H 11/14/24 15:28 96 H 145/93 H 11/14/24 15:26 98.6 F 11/14/24 15:23 95 H 98 11/14/24 15:18 99 H 97 11/14/24 15:13 97 11/14/24 15:13 99 H 11/14/24 15:13 96 H 145/91 H 11/14/24 15:08 96 H 97 11/14/24 15:03 97 H 96 11/14/24 14:58 96 11/14/24 14:58 98 H 11/14/24 14:58 100 H 143/92 H 11/14/24 14:53 96 H 97 11/14/24 14:48 103 H 96 11/14/24 14:43 93 H 145/95 H 96 11/14/24 14:38 99 H 97 11/14/24 14:33 101 H 98 11/14/24 14:30 17 11/14/24 14:28 100 H 140/91 97 11/14/24 14:23 96 H 97 11/14/24 14:18 93 H 96 11/14/24 14:13 97 11/14/24 14:13 97 H 11/14/24 14:13 102 H 146/98 H 11/14/24 14:08 98 H 97 11/14/24 14:03 100 H 97 11/14/24 13:58 101 H 139/91 97 11/14/24 13:53 101 H 98 11/14/24 13:48 106 H 98 11/14/24 13:43 97 11/14/24 13:43 97 H 11/14/24 13:43 95 H 139/92 11/14/24 13:38 100 H 98 11/14/24 13:33 99 H 98 11/14/24 13:30 13 11/14/24 13:28 100 H 139/94 94 11/14/24 13:23 107 H 97 11/14/24 13:20 98.1 F 11/14/24 13:18 103 H 97 11/14/24 13:13 101 H 146/93 H 98 11/14/24 13:08 101 H 96 11/14/24 13:03 100 H 96 11/14/24 12:58 101 H 137/83 96 11/14/24 12:53 98 H 96 11/14/24 12:48 99 H 96 11/14/24 12:43 92 11/14/24 12:43 98 H 11/14/24 12:43 97 H 139/87 11/14/24 12:38 91 11/14/24 12:38 102 H 11/14/24 12:38 108 H 91 11/14/24 12:33 99 H 97 11/14/24 12:30 14 11/14/24 12:28 96 11/14/24 12:28 97 H 11/14/24 12:28 88 131/75 11/14/24 12:23 99 H 96 11/14/24 12:18 95 H 96 11/14/24 12:13 98 H 135/81 97 11/14/24 12:08 95 H 96 11/14/24 12:03 99 H 97 11/14/24 11:58 96 11/14/24 11:58 98 H 11/14/24 11:58 98 H 136/89 11/14/24 11:53 102 H 96 11/14/24 11:52 92 H 94 11/14/24 11:48 90 94 11/14/24 11:46 91 H 94 11/14/24 11:43 94 H 142/91 H 97 11/14/24 11:38 99 H 98 11/14/24 11:33 98.2 F 98 H 98 11/14/24 11:30 15 11/14/24 11:28 98 11/14/24 11:28 104 H 11/14/24 11:28 103 H 140/96 11/14/24 11:23 103 H 95 11/14/24 11:18 100 H 98 11/14/24 11:13 99 H 137/93 97 11/14/24 11:08 99 H 98 11/14/24 11:03 100 H 98 11/14/24 10:58 98 11/14/24 10:58 102 H 11/14/24 10:58 100 H 137/93 11/14/24 10:53 101 H 97 11/14/24 10:48 104 H 97 11/14/24 10:44 103 H 137/90 11/14/24 10:43 103 H 98 11/14/24 10:38 103 H 99 11/14/24 10:33 100 H 97 11/14/24 10:30 13 11/14/24 10:29 101 H 141/97 H 11/14/24 10:28 102 H 98 11/14/24 10:23 101 H 99 11/14/24 10:18 104 H 96 11/14/24 10:15 13 11/14/24 10:15 13 11/14/24 10:13 97 11/14/24 10:13 103 H 11/14/24 10:13 98 H 143/89 H 11/14/24 10:08 100 H 97 11/14/24 10:03 110 H 97 11/14/24 10:00 16 11/14/24 10:00 16 11/14/24 09:58 99 H 141/88 H 97 11/14/24 09:53 98 H 96 11/14/24 09:48 98 H 98 11/14/24 09:45 16 11/14/24 09:45 16 11/14/24 09:43 98 11/14/24 09:43 99 H 11/14/24 09:43 100 H 140/88 11/14/24 09:38 100 H 96 11/14/24 09:33 100 H 98 11/14/24 09:30 16 11/14/24 09:30 15 11/14/24 09:30 15 11/14/24 09:28 97 11/14/24 09:28 96 H 11/14/24 09:28 96 H 143/86 H 11/14/24 09:23 98 H 97 11/14/24 09:18 98 H 97 11/14/24 09:15 12 11/14/24 09:15 12 11/14/24 09:13 98 11/14/24 09:13 99 H 11/14/24 09:13 100 H 136/81 11/14/24 09:10 13 11/14/24 09:10 13 11/14/24 09:08 100 H 96 11/14/24 09:07 100 H 141/88 H 11/14/24 09:05 102 H 12 134/88 11/14/24 09:03 97 11/14/24 09:03 102 H 11/14/24 09:03 100 H 145/90 H 11/14/24 09:01 102 H 147/92 H 11/14/24 08:58 112 H 98 11/14/24 08:53 115 H 100 11/14/24 08:48 115 H 98 11/14/24 08:47 105 H 143/102 H 11/14/24 08:43 103 H 100 11/14/24 08:38 100 H 100 11/14/24 08:33 99 H 99 11/14/24 08:30 15 11/14/24 08:28 99 H 98 11/14/24 08:23 98 H 99 11/14/24 08:18 100 H 99 11/14/24 08:17 99 H 138/99 11/14/24 08:13 101 H 99 11/14/24 08:08 101 H 96 11/14/24 08:03 101 H 99 11/14/24 08:00 Room Air 11/14/24 07:58 96 H 98 11/14/24 07:53 89 96 11/14/24 07:49 96 H 159/97 H 11/14/24 07:48 96 H 100 11/14/24 07:43 90 99 11/14/24 07:38 92 H 99 11/14/24 07:33 94 H 98 11/14/24 07:30 15 11/14/24 07:28 89 100 11/14/24 07:26 90 146/100 H 07/07/25 07:23 92 H 100 11/14/24 07:18 98 11/14/24 07:18 89 11/14/24 07:18 92 H 138/102 H 11/14/24 07:13 92 H 99 11/14/24 07:09 98.4 F 11/14/24 07:08 91 H 98 11/14/24 07:03 90 96 11/14/24 07:00 98.4 F 16 11/14/24 06:58 93 H 100 11/14/24 06:53 88 99 11/14/24 06:48 97 11/14/24 06:48 91 H 11/14/24 06:48 85 151/96 H 11/14/24 06:43 84 99 11/14/24 06:38 83 99 11/14/24 06:33 86 99 11/14/24 06:30 16 11/14/24 06:30 16 11/14/24 06:28 82 99 11/14/24 06:23 82 99 11/14/24 06:18 83 100 11/14/24 06:16 76 145/96 H 11/14/24 06:13 84 98 11/14/24 06:08 82 98 11/14/24 06:03 82 100 11/14/24 05:59 77 165/103 H 11/14/24 05:58 77 99 11/14/24 05:53 87 98 11/14/24 05:48 86 100 11/14/24 05:43 76 98 Coding Level of Care Code None
[2024-11-14] MEDS: CALCIUM CARBONATE 500 MG CHEWABLE TAB PO PRN (17:56)
--- NOTE | 2024-11-14 18:25 | Electrocardiogram Report ---
Test Reason : Blood Pressure : */* mmHG Vent. Rate : 70 BPM Atrial Rate : 70 BPM P-R Int : 102 ms QRS Dur : 72 ms QT Int : 392 ms P-R-T Axes : -26 -6 -16 degrees QTcB Int : 423 ms Sinus rhythm with sinus arrhythmia with short MT Possible Inferior infarct , age undetermined Abnormal ECG When compared with ECG of 18-Mar-2023 16:15, Vent. rate has decreased by 66 bpm Borderline criteria for Inferior infarct are now Present Nonspecific T wave abnormality, improved in Anterolateral leads Confirmed by Abdoulaye Eddy ([id number]) on 11/14/2024 6:25:13 PM Referred By: REFERRED SELF Confirmed By: Abdoulaye Eddy
[2024-11-14] MEDS: fentANYL 2 MCG/ML BUPIVacaine 0.125%-NSS 100ML BAG EPI PRN (18:44)
--- NOTE | 2024-11-14 20:22 | Labor Progress Brief Note ---
Date of Service November 14, 2024 Subjective Patient comfortable with epidural. Assessment & Plan (1) Pre-eclampsia in third trimester: Plan: Patient undergoing induction of labor due to preeclampsia with severe features. Magnesium therapy continues; patient without HERNANDEZ, RUQ pain or vision changes, feels OK. Labetalol 200mg PO BID continues, pressure has been mild-range HTN but not severe. Serial CMP was ordered for 1800pm but have not been drawn; [email or web address] systems programmer was called and is just now arriving at the room. There has been no cervical change all day today as patient remains at 5cm. Patient was counseled on this, and we discussed that toco is actually spacing further apart over the last few hours despite serial increases in pitocin. Labor has not been adequate at all since IUPC was placed. The pelvis feels narrow and I am concerned that even with adequate labor we may not have a vaginal delivery, as the presenting part is not descending. However the patient feels very much against having a delivery. She wishes to continue IOL until we cannot any longer. Discussed that since MVU are dropping despite pitocin increasing, I presume her receptors for pitocin are saturated and that continuing to increase pit at this time will therefore yield more risk than reward. Because of this, if patient wants to continue IOL, I recommended a break from pitocin and restarting it afterwards. Patient is agreeable. We discussed that attempting this break to desaturate her receptors may not work, and even if it does help us achieve adequate labor it may not guarantee a vaginal delivery. However at this time there is not an immediate indication or maternal indication for , the patient does not wish to change route of delivery, so this seems the best available course of action. Admission and Anticipated Discharge Date Admission Date: November 14, 2024 Physical Exam Genitourinary: [place] Q4-6 minutes Pit @ 26 Cvx unchanged again at 5cm. LOF clear continues. FHT has been Cat 1 (although immediately after cervical exam there are two variable decels noted). Results & Data Vital Signs (Past 12 Hours) Vital Signs Temp Pulse Resp BP Pulse Ox 11/14/24 20:13 122 H 95 11/14/24 20:11 112 H 94 11/14/24 20:08 110 H 95 11/14/24 20:05 111 H 94 11/14/24 20:03 113 H 95 11/14/24 20:00 16 11/14/24 20:00 16 11/14/24 19:58 95 11/14/24 19:58 117 H 11/14/24 19:58 118 H 150/98 H 11/14/24 19:53 117 H 96 11/14/24 19:48 114 H 95 11/14/24 19:47 112 H 94 11/14/24 19:43 97 11/14/24 19:43 117 H 11/14/24 19:43 110 H 149/96 H 11/14/24 19:38 110 H 95 11/14/24 19:33 106 H 93 11/14/24 19:30 109 H 16 94 11/14/24 19:28 94 11/14/24 19:28 105 H 11/14/24 19:28 107 H 136/90 11/14/24 19:23 110 H 95 11/14/24 19:22 108 H 94 11/14/24 19:18 111 H 97 11/14/24 19:14 107 H 138/97 11/14/24 19:13 105 H 96 11/14/24 19:08 104 H 94 11/14/24 19:03 103 H 96 11/14/24 19:00 98.4 F 16 11/14/24 19:00 16 11/14/24 18:58 96 11/14/24 18:58 98 H 11/14/24 18:58 103 H 131/77 11/14/24 18:53 104 H 94 11/14/24 18:48 105 H 95 11/14/24 18:43 95 11/14/24 18:43 103 H 11/14/24 18:43 100 H 122/74 11/14/24 18:38 102 H 96 11/14/24 18:33 99 H 96 11/14/24 18:29 102 H 129/75 11/14/24 18:28 102 H 95 11/14/24 18:23 99 H 96 11/14/24 18:18 99 H 95 11/14/24 18:13 94 11/14/24 18:13 99 H 11/14/24 18:13 102 H 129/77 11/14/24 18:08 105 H 94 11/14/24 18:06 114 H 93 11/14/24 18:03 108 H 95 11/14/24 17:58 111 H 140/94 96 11/14/24 17:53 109 H 96 11/14/24 17:48 104 H 96 11/14/24 17:44 108 H 148/102 H 11/14/24 17:43 108 H 94 11/14/24 17:39 108 H 91 11/14/24 17:38 112 H 96 11/14/24 17:33 104 H 96 11/14/24 17:28 104 H 148/96 H 96 11/14/24 17:23 110 H 97 11/14/24 17:18 111 H 97 11/14/24 17:13 96 11/14/24 17:13 109 H 11/14/24 17:13 108 H 146/98 H 11/14/24 17:08 107 H 96 11/14/24 17:03 109 H 96 11/14/24 16:58 110 H 145/102 H 96 11/14/24 16:53 105 H 96 11/14/24 16:48 109 H 95 11/14/24 16:47 108 H 94 11/14/24 16:43 95 11/14/24 16:43 109 H 11/14/24 16:43 102 H 148/95 H 11/14/24 16:38 103 H 96 11/14/24 16:33 99 H 95 11/14/24 16:30 17 11/14/24 16:28 95 11/14/24 16:28 101 H 11/14/24 16:28 100 H 143/91 H 11/14/24 16:23 100 H 96 11/14/24 16:19 105 H 94 11/14/24 16:18 105 H 95 11/14/24 16:13 93 11/14/24 16:13 104 H 11/14/24 16:13 105 H 140/97 94 11/14/24 16:11 98.2 F 19 11/14/24 16:08 101 H 94 11/14/24 16:06 101 H 94 11/14/24 16:03 102 H 97 11/14/24 15:58 97 11/14/24 15:58 99 H 11/14/24 15:58 100 H 148/95 H 11/14/24 15:53 101 H 97 11/14/24 15:48 93 H 96 11/14/24 15:43 89 136/88 96 11/14/24 15:38 98 H 97 11/14/24 15:33 96 H 96 11/14/24 15:30 19 11/14/24 15:28 96 11/14/24 15:28 97 H 11/14/24 15:28 96 H 145/93 H 11/14/24 15:26 98.6 F 11/14/24 15:23 95 H 98 11/14/24 15:18 99 H 97 11/14/24 15:13 97 11/14/24 15:13 99 H 11/14/24 15:13 96 H 145/91 H 11/14/24 15:08 96 H 97 11/14/24 15:03 97 H 96 11/14/24 14:58 96 11/14/24 14:58 98 H 11/14/24 14:58 100 H 143/92 H 11/14/24 14:53 96 H 97 11/14/24 14:48 103 H 96 11/14/24 14:43 93 H 145/95 H 96 11/14/24 14:38 99 H 97 11/14/24 14:33 101 H 98 11/14/24 14:30 17 11/14/24 14:28 100 H 140/91 97 11/14/24 14:23 96 H 97 11/14/24 14:18 93 H 96 11/14/24 14:13 97 11/14/24 14:13 97 H 11/14/24 14:13 102 H 146/98 H 11/14/24 14:08 98 H 97 11/14/24 14:03 100 H 97 11/14/24 13:58 101 H 139/91 97 11/14/24 13:53 101 H 98 11/14/24 13:48 106 H 98 11/14/24 13:43 97 11/14/24 13:43 97 H 11/14/24 13:43 95 H 139/92 11/14/24 13:38 100 H 98 11/14/24 13:33 99 H 98 11/14/24 13:30 13 11/14/24 13:28 100 H 139/94 94 11/14/24 13:23 107 H 97 11/14/24 13:20 98.1 F 11/14/24 13:18 103 H 97 11/14/24 13:13 101 H 146/93 H 98 11/14/24 13:08 101 H 96 11/14/24 13:03 100 H 96 11/14/24 12:58 101 H 137/83 96 11/14/24 12:53 98 H 96 11/14/24 12:48 99 H 96 11/14/24 12:43 92 11/14/24 12:43 98 H 11/14/24 12:43 97 H 139/87 11/14/24 12:38 91 11/14/24 12:38 102 H 11/14/24 12:38 108 H 91 11/14/24 12:33 99 H 97 11/14/24 12:30 14 11/14/24 12:28 96 11/14/24 12:28 97 H 11/14/24 12:28 88 131/75 11/14/24 12:23 99 H 96 11/14/24 12:18 95 H 96 11/14/24 12:13 98 H 135/81 97 11/14/24 12:08 95 H 96 11/14/24 12:03 99 H 97 11/14/24 11:58 96 11/14/24 11:58 98 H 11/14/24 11:58 98 H 136/89 11/14/24 11:53 102 H 96 11/14/24 11:52 92 H 94 11/14/24 11:48 90 94 11/14/24 11:46 91 H 94 11/14/24 11:43 94 H 142/91 H 97 11/14/24 11:38 99 H 98 11/14/24 11:33 98.2 F 98 H 98 11/14/24 11:30 15 11/14/24 11:28 98 11/14/24 11:28 104 H 11/14/24 11:28 103 H 140/96 11/14/24 11:23 103 H 95 11/14/24 11:18 100 H 98 11/14/24 11:13 99 H 137/93 97 11/14/24 11:08 99 H 98 11/14/24 11:03 100 H 98 11/14/24 10:58 98 11/14/24 10:58 102 H 11/14/24 10:58 100 H 137/93 11/14/24 10:53 101 H 97 11/14/24 10:48 104 H 97 11/14/24 10:44 103 H 137/90 11/14/24 10:43 103 H 98 11/14/24 10:38 103 H 99 11/14/24 10:33 100 H 97 11/14/24 10:30 13 11/14/24 10:29 101 H 141/97 H 11/14/24 10:28 102 H 98 11/14/24 10:23 101 H 99 11/14/24 10:18 104 H 96 11/14/24 10:15 13 11/14/24 10:15 13 11/14/24 10:13 97 11/14/24 10:13 103 H 11/14/24 10:13 98 H 143/89 H 11/14/24 10:08 100 H 97 11/14/24 10:03 110 H 97 11/14/24 10:00 16 11/14/24 10:00 16 11/14/24 09:58 99 H 141/88 H 97 11/14/24 09:53 98 H 96 11/14/24 09:48 98 H 98 11/14/24 09:45 16 11/14/24 09:45 16 11/14/24 09:43 98 11/14/24 09:43 99 H 11/14/24 09:43 100 H 140/88 11/14/24 09:38 100 H 96 11/14/24 09:33 100 H 98 11/14/24 09:30 16 11/14/24 09:30 15 11/14/24 09:30 15 11/14/24 09:28 97 11/14/24 09:28 96 H 11/14/24 09:28 96 H 143/86 H 11/14/24 09:23 98 H 97 11/14/24 09:18 98 H 97 11/14/24 09:15 12 11/14/24 09:15 12 11/14/24 09:13 98 11/14/24 09:13 99 H 11/14/24 09:13 100 H 136/81 11/14/24 09:10 13 11/14/24 09:10 13 11/14/24 09:08 100 H 96 11/14/24 09:07 100 H 141/88 H 11/14/24 09:05 102 H 12 134/88 11/14/24 09:03 97 11/14/24 09:03 102 H 11/14/24 09:03 100 H 145/90 H 11/14/24 09:01 102 H 147/92 H 11/14/24 08:58 112 H 98 11/14/24 08:53 115 H 100 11/14/24 08:48 115 H 98 11/14/24 08:47 105 H 143/102 H 11/14/24 08:43 103 H 100 11/14/24 08:38 100 H 100 11/14/24 08:33 99 H 99 11/14/24 08:30 15 11/14/24 08:28 99 H 98 11/14/24 08:23 98 H 99 Laboratory Results Laboratory Results - last 24 hr 11/13/24 11/13/24 11/14/24 22:06 22:20 01:12 WBC 8.23 9.46 RBC 3.98 L 3.99 L Hgb 11.3 L 11.2 L POC Hgb 11.2 L Hct 33.7 L 33.4 L POC Hct 33 L MCV 84.7 83.7 MCH 28.4 28.1 MCHC 33.5 33.5 RDW Std Deviation 39.6 39.3 RDW Coeff of Carolin 13.0 12.9 Plt Count 107 L 120 L MPV 11.4 11.5 Immature Gran % (Auto) 0.2 Neut % (Auto) 56.4 Lymph % (Auto) 35.1 [place] % (Auto) 7.5 Eos % (Auto) 0.6 Baso % (Auto) 0.2 Neut # (Auto) 4.63 Lymph # (Auto) 2.89 [place] # (Auto) 0.62 H Eos # (Auto) 0.05 Baso # (Auto) 0.02 Immature Gran # (Auto) 0.02 POC Sodium 137 Sodium 136 POC Potassium 4.2 Potassium 4.1 POC Chloride 107 Chloride 110 H Carbon Dioxide 19 L POC Total CO2 18 L Anion Gap 7 POC Anion Gap 18.0 POC BUN 11 BUN 12 Creatinine 0.95 POC Creatinine 0.9 Est Cr Clr Drug Dosing 88.7 eGFR 86.88 BUN/Creatinine Ratio 12.6 Glucose 78 POC Glucose (other) 77 Uric Acid 6.8 Calcium 8.7 POC Ioniz Calcium Taryn 1.27 Magnesium 1.9 Total Bilirubin 0.3 AST 17 ALT 12 Alkaline Phosphatase 155 H Lactate Dehydrogenase 178 Troponin I High Sens 6.3 Total Protein 5.9 L Albumin 3.1 L Globulin 2.8 Albumin/Globulin Ratio 1.1 TSH 3.248 Urine Color Yellow Urine Appearance Clear Urine pH 6.0 Ur Specific [place] 1.008 Urine Protein 3+ H Urine Glucose (UA) Negative Urine Ketones Negative Urine Blood Negative Urine Nitrite Negative Urine Bilirubin Negative Urine Urobilinogen Negative Ur Leukocyte Esterase Negative Urine WBC (Auto) 0-5 Urine RBC (Auto) 0-2 U Hyaline Cast (Auto) 0-2 U Epithel Cells (Auto) 3-5 H Urine Bacteria (Auto) None Seen Ur Random Creatinine U Random Total Protein Protein/Creatinin Ratio Urine Comment Treponema pallidum Ab Negative 11/14/24 01:55 WBC RBC Hgb POC Hgb Hct POC Hct MCV MCH MCHC RDW Std Deviation RDW Coeff of [place]in Plt Count MPV Immature Gran % (Auto) Neut % (Auto) Lymph % (Auto) [place] % (Auto) Eos % (Auto) Baso % (Auto) Neut # (Auto) Lymph # (Auto) [place] # (Auto) Eos # (Auto) Baso # (Auto) Immature Gran # (Auto) POC Sodium Sodium POC Potassium Potassium POC Chloride Chloride Carbon Dioxide POC Total CO2 Anion Gap POC Anion Gap POC BUN BUN Creatinine POC Creatinine Est Cr Clr Drug Dosing eGFR BUN/Creatinine Ratio Glucose POC Glucose (other) Uric Acid Calcium POC Ioniz Calcium Taryn Magnesium Total Bilirubin AST ALT Alkaline Phosphatase Lactate Dehydrogenase Troponin I High Sens Total Protein Albumin Globulin Albumin/Globulin Ratio TSH Urine Color Urine Appearance Urine pH Ur Specific [place] Urine Protein Urine Glucose (UA) Urine Ketones Urine Blood Urine Nitrite Urine Bilirubin Urine Urobilinogen Ur Leukocyte Esterase Urine WBC (Auto) Urine RBC (Auto) U Hyaline Cast (Auto) U Epithel Cells (Auto) Urine Bacteria (Auto) Ur Random Creatinine 47.5 U Random Total Protein 142.7 H Protein/Creatinin Ratio 3.0 H Urine Comment Treponema pallidum Ab Coding Level of Care Code None Diagnoses Pre-eclampsia in third trimester O14.93
[2024-11-14 21:21] LABS: Anion Gap 13.0 (3-11); Blood Urea Nitrogen 10.0 mg/dl (6-23); Calcium 7.7 mg/dl (8.6-10.3); Carbon Dioxide 16.0 mmol/L (21-32); Chloride 104.0 mmol/L (98-107); Creatinine Clr Calc Pharmacy 85.2 ml/min; Glucose 97.0 mg/dl (70-99(Fasting)); Potassium 4.7 mmol/L (3.5-5.1); Sodium 133.0 mmol/L (136-145)
[2024-11-14 21:40] LABS: Alanine Aminotransferase 18.0 U/L (7-52); Albumin Globulin Ratio 1.1 (0.9-2); Alkaline Phosphatase 168.0 U/L (34-104); Bilirubin,Total 0.4 mg/dl (0.2-1.0); Globulin 3.2 gm/dl (2.5-4.0); Magnesium Therapeutic L&D Only 8.0 mg/dL (4.0-8.0); Total Protein 6.6 gm/dl (6.0-8.3)
--- NOTE | 2024-11-14 21:40 | Labor Progress Brief Note ---
Date of Service November 14, 2024 Subjective I was called to room to talk with patient as she has reconsidered the plan and is requesting to proceed to section. Shortly after my last visit with her, the patient's mother arrived from [place] to support her. This may have led to some changes in the patient's interest in proceeding to , but she was emotional about that, anxious, and had questions she wanted to discuss. I re-counseled the patient, FOB and patient's mother about the current situation with failure to achieve adequate MVU's despite increasing pitocin to 26. I explained saturation of the uterine pitocin receptors, as well as the role of magnesium in relaxing the uterus (but that it is necessary to prevent consequences of preeclampsia while she remains ). We discussed my concern that the infant may be too large to pass through the pelvis as there is a narrow inlet and has been no descent or cervical change all day. We discussed the option to continue attempts to achieve adequate labor by desaturating her receptors and re-titrating pitocin, but that this will take significant time and is not guaranteed to change the outcome of her labor process. All questions were answered to stated satisfaction of the patient and her support persons. Consent was signed. Patient would like to proceed to . She admits to significant anxiety about the surgery and inquires about anti-anxiety options for pre-op and intra- op. Discussed we are somewhat limited by concern for effects but can offer some options such as hydroxyzine / benadryl. Acute elevation of HTN to severe range during this decision-making process likely associated with anxiety and tearfulness. Evening dose of oral labetalol just recently given, patient is without PIH symptoms at this time, and will try to calm patient and reassess BP before utilizing IV antihypertensive. Assessment & Plan Admission and Anticipated Discharge Date Admission Date: November 14, 2024 Results & Data Vital Signs (Past 12 Hours) Vital Signs Temp Pulse Resp BP Pulse Ox 11/14/24 21:31 114 H 172/109 H 11/14/24 21:28 114 H 97 11/14/24 21:23 126 H 98 11/14/24 21:18 111 H 97 11/14/24 21:13 111 H 97 11/14/24 21:12 109 H 158/103 H 11/14/24 21:08 114 H 97 11/14/24 21:05 131 H 181/131 H 11/14/24 21:03 117 H 98 11/14/24 21:00 16 11/14/24 21:00 16 11/14/24 20:58 111 H 97 11/14/24 20:53 116 H 96 11/14/24 20:48 115 H 96 11/14/24 20:43 96 11/14/24 20:43 116 H 11/14/24 20:43 118 H 156/101 H 11/14/24 20:38 136 H 96 11/14/24 20:36 112 H 94 11/14/24 20:33 112 H 96 11/14/24 20:30 16 11/14/24 20:30 16 11/14/24 20:28 113 H 155/103 H 96 11/14/24 20:23 111 H 97 11/14/24 20:20 112 H 94 11/14/24 20:18 117 H 98 11/14/24 20:13 122 H 95 11/14/24 20:11 112 H 94 11/14/24 20:08 110 H 95 11/14/24 20:05 111 H 94 11/14/24 20:03 113 H 95 11/14/24 20:00 16 11/14/24 20:00 16 11/14/24 19:58 95 11/14/24 19:58 117 H 11/14/24 19:58 118 H 150/98 H 11/14/24 19:53 117 H 96 11/14/24 19:48 114 H 95 11/14/24 19:47 112 H 94 11/14/24 19:43 97 11/14/24 19:43 117 H 11/14/24 19:43 110 H 149/96 H 11/14/24 19:38 110 H 95 11/14/24 19:33 106 H 93 11/14/24 19:30 109 H 16 94 11/14/24 19:28 94 11/14/24 19:28 105 H 11/14/24 19:28 107 H 136/90 11/14/24 19:23 110 H 95 11/14/24 19:22 108 H 94 11/14/24 19:18 111 H 97 11/14/24 19:14 107 H 138/97 11/14/24 19:13 105 H 96 11/14/24 19:08 104 H 94 11/14/24 19:03 103 H 96 11/14/24 19:00 98.4 F 16 11/14/24 19:00 16 11/14/24 18:58 96 11/14/24 18:58 98 H 11/14/24 18:58 103 H 131/77 11/14/24 18:53 104 H 94 11/14/24 18:48 105 H 95 11/14/24 18:43 95 11/14/24 18:43 103 H 11/14/24 18:43 100 H 122/74 11/14/24 18:38 102 H 96 11/14/24 18:33 99 H 96 11/14/24 18:29 102 H 129/75 11/14/24 18:28 102 H 95 11/14/24 18:23 99 H 96 11/14/24 18:18 99 H 95 11/14/24 18:13 94 11/14/24 18:13 99 H 11/14/24 18:13 102 H 129/77 11/14/24 18:08 105 H 94 11/14/24 18:06 114 H 93 11/14/24 18:03 108 H 95 11/14/24 17:58 111 H 140/94 96 11/14/24 17:53 109 H 96 11/14/24 17:48 104 H 96 11/14/24 17:44 108 H 148/102 H 11/14/24 17:43 108 H 94 11/14/24 17:39 108 H 91 11/14/24 17:38 112 H 96 11/14/24 17:33 104 H 96 11/14/24 17:28 104 H 148/96 H 96 11/14/24 17:23 110 H 97 11/14/24 17:18 111 H 97 11/14/24 17:13 96 11/14/24 17:13 109 H 11/14/24 17:13 108 H 146/98 H 11/14/24 17:08 107 H 96 11/14/24 17:03 109 H 96 11/14/24 16:58 110 H 145/102 H 96 11/14/24 16:53 105 H 96 11/14/24 16:48 109 H 95 11/14/24 16:47 108 H 94 11/14/24 16:43 95 11/14/24 16:43 109 H 11/14/24 16:43 102 H 148/95 H 11/14/24 16:38 103 H 96 11/14/24 16:33 99 H 95 11/14/24 16:30 17 11/14/24 16:28 95 11/14/24 16:28 101 H 11/14/24 16:28 100 H 143/91 H 11/14/24 16:23 100 H 96 11/14/24 16:19 105 H 94 11/14/24 16:18 105 H 95 11/14/24 16:13 93 11/14/24 16:13 104 H 11/14/24 16:13 105 H 140/97 94 11/14/24 16:11 98.2 F 19 11/14/24 16:08 101 H 94 11/14/24 16:06 101 H 94 11/14/24 16:03 102 H 97 11/14/24 15:58 97 11/14/24 15:58 99 H 11/14/24 15:58 100 H 148/95 H 11/14/24 15:53 101 H 97 11/14/24 15:48 93 H 96 11/14/24 15:43 89 136/88 96 11/14/24 15:38 98 H 97 11/14/24 15:33 96 H 96 11/14/24 15:30 19 11/14/24 15:28 96 11/14/24 15:28 97 H 11/14/24 15:28 96 H 145/93 H 11/14/24 15:26 98.6 F 11/14/24 15:23 95 H 98 11/14/24 15:18 99 H 97 11/14/24 15:13 97 11/14/24 15:13 99 H 11/14/24 15:13 96 H 145/91 H 11/14/24 15:08 96 H 97 11/14/24 15:03 97 H 96 11/14/24 14:58 96 11/14/24 14:58 98 H 11/14/24 14:58 100 H 143/92 H 11/14/24 14:53 96 H 97 11/14/24 14:48 103 H 96 11/14/24 14:43 93 H 145/95 H 96 11/14/24 14:38 99 H 97 11/14/24 14:33 101 H 98 11/14/24 14:30 17 11/14/24 14:28 100 H 140/91 97 11/14/24 14:23 96 H 97 11/14/24 14:18 93 H 96 11/14/24 14:13 97 11/14/24 14:13 97 H 11/14/24 14:13 102 H 146/98 H 11/14/24 14:08 98 H 97 11/14/24 14:03 100 H 97 11/14/24 13:58 101 H 139/91 97 11/14/24 13:53 101 H 98 11/14/24 13:48 106 H 98 11/14/24 13:43 97 11/14/24 13:43 97 H 11/14/24 13:43 95 H 139/92 11/14/24 13:38 100 H 98 11/14/24 13:33 99 H 98 11/14/24 13:30 13 11/14/24 13:28 100 H 139/94 94 11/14/24 13:23 107 H 97 11/14/24 13:20 98.1 F 11/14/24 13:18 103 H 97 11/14/24 13:13 101 H 146/93 H 98 11/14/24 13:08 101 H 96 11/14/24 13:03 100 H 96 11/14/24 12:58 101 H 137/83 96 11/14/24 12:53 98 H 96 11/14/24 12:48 99 H 96 11/14/24 12:43 92 11/14/24 12:43 98 H 11/14/24 12:43 97 H 139/87 11/14/24 12:38 91 11/14/24 12:38 102 H 11/14/24 12:38 108 H 91 11/14/24 12:33 99 H 97 11/14/24 12:30 14 11/14/24 12:28 96 11/14/24 12:28 97 H 11/14/24 12:28 88 131/75 11/14/24 12:23 99 H 96 11/14/24 12:18 95 H 96 11/14/24 12:13 98 H 135/81 97 11/14/24 12:08 95 H 96 11/14/24 12:03 99 H 97 11/14/24 11:58 96 11/14/24 11:58 98 H 11/14/24 11:58 98 H 136/89 11/14/24 11:53 102 H 96 11/14/24 11:52 92 H 94 11/14/24 11:48 90 94 11/14/24 11:46 91 H 94 11/14/24 11:43 94 H 142/91 H 97 11/14/24 11:38 99 H 98 11/14/24 11:33 98.2 F 98 H 98 11/14/24 11:30 15 11/14/24 11:28 98 11/14/24 11:28 104 H 11/14/24 11:28 103 H 140/96 11/14/24 11:23 103 H 95 11/14/24 11:18 100 H 98 11/14/24 11:13 99 H 137/93 97 11/14/24 11:08 99 H 98 11/14/24 11:03 100 H 98 11/14/24 10:58 98 11/14/24 10:58 102 H 11/14/24 10:58 100 H 137/93 11/14/24 10:53 101 H 97 11/14/24 10:48 104 H 97 11/14/24 10:44 103 H 137/90 11/14/24 10:43 103 H 98 11/14/24 10:38 103 H 99 11/14/24 10:33 100 H 97 11/14/24 10:30 13 11/14/24 10:29 101 H 141/97 H 11/14/24 10:28 102 H 98 11/14/24 10:23 101 H 99 11/14/24 10:18 104 H 96 11/14/24 10:15 13 11/14/24 10:15 13 11/14/24 10:13 97 11/14/24 10:13 103 H 11/14/24 10:13 98 H 143/89 H 11/14/24 10:08 100 H 97 11/14/24 10:03 110 H 97 11/14/24 10:00 16 11/14/24 10:00 16 11/14/24 09:58 99 H 141/88 H 97 11/14/24 09:53 98 H 96 11/14/24 09:48 98 H 98 11/14/24 09:45 16 11/14/24 09:45 16 11/14/24 09:43 98 11/14/24 09:43 99 H 11/14/24 09:43 100 H 140/88 11/14/24 09:38 100 H 96 Coding Level of Care Code None
[2024-11-14] MEDS: diphenhydrAMINE 50 MG/ML VIAL IV PRN (21:44)
[2024-11-14] MEDS: AZITHROMYCIN 500 MG/255 ML BAG IV SCH (22:00)
[2024-11-14] MEDS ORDERED: CITRIC ACID/SODIUM CITRATE 15 ML UDC PO SCH (22:00)
--- NOTE | 2024-11-14 22:13 | Communication Note ---
Date of Service: November 14, 2024 c section called for severe pre-ecclampsia with arrest of descent. epidural working well. will use epidural for surgery. questions answered, previous anes thesia consent is still active.
[2024-11-14] MEDS ORDERED: OXYTOCIN 10 UNITS/ML VIAL ONE (22:28)
[2024-11-14] MEDS ORDERED: LACTATED RINGER'S 1,000 ML IV SCH (22:30)
[2024-11-14] MEDS ORDERED: MoRPHine SULFATE PF 1 MG/ML 10 ML AMP/VIAL ONE (22:32)
[2024-11-14] MEDS ORDERED: LIDOCAINE 2% MPF LOCAL 5 ML VIAL ONE (22:45)
[2024-11-14] MEDS ORDERED: LIDOCAINE 2%/EPINEPHRINE 1:200,000 20 ML PF ONE (22:45)
[2024-11-14] MEDS ORDERED: ONDANSETRON INJ 2 MG/ML 2 ML VIAL ONE (22:45)
[2024-11-14] MEDS ORDERED: PHENYLEPHRINE 100MCG/ML 5ML SYR ONE (22:45)
--- NOTE | 2024-11-14 22:59 | Operative Report ---
[facility] Post Operative Report Pre & Post Diagnosis Operation Date: 11/14/24 22:00 Pre-Op Diagnosis: Severe preeclampsia, Failed Induction of Labor, Failure to Descend/Dilate Post-Op Diagnosis: same as pre-op I identified the patient and participated in the time-out.: Yes Procedure Operation Date: 11/14/24 22:00 1' Low Transverse Section Surgeon Lisandra Barraza MD Asset Availability Leader Huong Kelly RN Estimated Blood Loss 409 Findings Consistent with Post-Op Diagnosis Specimens Placenta, cord blood Anesthesia Type L&D Only Epidural Exists Complications none Disposition Accompanied Patient To Recovery: Yes Disposition: L&D Description of Procedure The patient was placed operating table in the supine position with a leftward tilt. She was prepped and draped in standard sterile fashion. The anesthetic was tested and found to be adequate. A time-out was held, identifying correct patient, procedure, positioning and preoperative antibiotics. There were no concerns. A Pfannenstiel skin incision was made with a knife and taken down to the underlying layer of fascia. The fascia was incised in the midline with the knife and taken out laterally with scissors. The superior edge of the fascial incision was grasped, elevated and dissected off the underlying rectus both superiorly and inferiorly. The muscles were bluntly in the midline. The peritoneum was entered bluntly. The incision was then stretched. The bladder retractor was placed. The vesicouterine peritoneum was identified, entered with scissors and taken out laterally with scissors. The bladder flap was created digitally. A hysterotomy incision was created transversely in the lower uterine segment, final entry being accomplished in a blunt manner with the concrete grinder operator's fingers. Clear amniotic fluid was encountered. The concrete grinder operator's hand was used to elevate the head to the hysterotomy. The head was delivered using mild fundal pressure, and the shoulders and body followed without difficulty. The cord was clamped and cut and the infant was then handed off to the awaiting padder. Cord blood was obtained. The placenta was Manually extracted. The uterus was exteriorized and cleared of all clot and debris with moistened laparotomy sponges. The hysterotomy incision was repaired in one running locked layer. Due to patient anxiety and physical discomfort, the uterus was gently replaced in the abdomen after that first layer. The gutters were cleared of clot and debris. Inspection of the hysterotomy revealed complete hemostasis. Taking into consideration the patient's distress and the complete hemostasis already present, a decision was made not to place a second layer of suture on the hysterotomy. The rectus muscles were allowed to reapproximate naturally. The fascia was then reapproximated with 1 Vicryl in a running nonlocked manner. The fascia was examined and found to be free of defect following closure. The subcutaneous tissue was copiously irrigated and reapproximated with 0-chromic, then the skin edges were closed with 4-0 monocryl in a subcuticular fashion. A dermabond dressing was applied. The gomes was found to be draining clear yellow urine at completion of the procedure. I attest to the content of the Intraoperative Record and any orders documented therein. Any exceptions are noted below. I attest to the content of the Intraoperative Record and any orders documented therein. Any exceptions are noted below. OB Procedure Charges 32292
[2024-11-14] MEDS ORDERED: NALOXONE HCL 0.08 MG in SYRINGE 1.8 ML IV PRN (23:06)
[2024-11-14] MEDS ORDERED: HYDROmorphone INJ 0.5 MG/0.5 ML SYR IV PRN (23:06)
[2024-11-14] MEDS ORDERED: MoRPHine SULFATE PF 1 MG/ML 10 ML AMP/VIAL INT SPINAL ONE (23:06)
[2024-11-14] MEDS ORDERED: MoRPHine SULFATE 2 MG/ML CARP IV PRN (23:06)
[2024-11-14] MEDS ORDERED: ONDANSETRON INJ 2 MG/ML 2 ML VIAL IV PRN (23:06)
[2024-11-14] MEDS ORDERED: MEPERIDINE HCL 25 MG/ML CARP/VIAL IV PRN (23:06)
[2024-11-14] MEDS ORDERED: diphenhydrAMINE 50 MG/ML VIAL IV PRN (23:06)
[2024-11-14] MEDS ORDERED: LACTATED RINGER'S 500 ML IV PRN (23:06)
--- NOTE | 2024-11-14 23:10 | Anesthesiology Progress Note ---
Date of Service November 14, 2024 Anesthesia Post Procedure Vital Signs Vital Signs: Temp Pulse Pulse Resp BP BP Pulse Ox 11/14/24 23:09 93 H 111/64 11/14/24 23:08 95 H 95 11/14/24 23:04 94 H 94 11/14/24 23:02 97 H 97 11/14/24 22:59 95 H 93 11/14/24 22:58 98 H 116/70 11/14/24 22:57 98 H 98 11/14/24 22:03 114 H 97 11/14/24 22:01 114 H 164/100 H 11/14/24 21:58 114 H 99 11/14/24 21:53 116 H 97 11/14/24 21:48 119 H 96 11/14/24 21:46 111 H 162/103 H 11/14/24 21:43 112 H 98 11/14/24 21:38 110 H 98 11/14/24 21:33 114 H 98 11/14/24 21:31 114 H 172/109 H 11/14/24 21:28 114 H 97 11/14/24 21:23 126 H 98 11/14/24 21:18 111 H 97 11/14/24 21:13 111 H 97 11/14/24 21:12 109 H 158/103 H 11/14/24 21:08 114 H 97 11/14/24 21:05 131 H 181/131 H 11/14/24 21:03 117 H 98 11/14/24 21:00 16 11/14/24 21:00 16 11/14/24 20:58 111 H 97 11/14/24 20:53 116 H 96 11/14/24 20:48 115 H 96 11/14/24 20:43 96 11/14/24 20:43 116 H 11/14/24 20:43 118 H 156/101 H 11/14/24 20:38 136 H 96 11/14/24 20:36 112 H 94 11/14/24 20:33 112 H 96 11/14/24 20:30 16 11/14/24 20:30 16 11/14/24 20:28 113 H 155/103 H 96 11/14/24 20:23 111 H 97 11/14/24 20:20 112 H 94 11/14/24 20:18 117 H 98 11/14/24 20:13 122 H 95 11/14/24 20:11 112 H 94 11/14/24 20:08 110 H 95 11/14/24 20:05 111 H 94 11/14/24 20:03 113 H 95 11/14/24 20:00 16 11/14/24 20:00 16 11/14/24 19:58 95 11/14/24 19:58 117 H 11/14/24 19:58 118 H 150/98 H 11/14/24 19:53 117 H 96 11/14/24 19:48 114 H 95 11/14/24 19:47 112 H 94 11/14/24 19:43 97 11/14/24 19:43 117 H 11/14/24 19:43 110 H 149/96 H 11/14/24 19:38 110 H 95 11/14/24 19:33 106 H 93 11/14/24 19:30 109 H 16 94 11/14/24 19:28 94 11/14/24 19:28 105 H 11/14/24 19:28 107 H 136/90 11/14/24 19:23 110 H 95 11/14/24 19:22 108 H 94 11/14/24 19:18 111 H 97 11/14/24 19:14 107 H 138/97 11/14/24 19:13 105 H 96 11/14/24 19:08 104 H 94 11/14/24 19:03 103 H 96 11/14/24 19:00 36.9 C 16 11/14/24 19:00 16 11/14/24 18:58 96 11/14/24 18:58 98 H 11/14/24 18:58 103 H 131/77 11/14/24 18:53 104 H 94 11/14/24 18:48 105 H 95 11/14/24 18:43 95 11/14/24 18:43 103 H 11/14/24 18:43 100 H 122/74 11/14/24 18:38 102 H 96 11/14/24 18:33 99 H 96 11/14/24 18:29 102 H 129/75 11/14/24 18:28 102 H 95 11/14/24 18:23 99 H 96 11/14/24 18:18 99 H 95 11/14/24 18:13 94 11/14/24 18:13 99 H 11/14/24 18:13 102 H 129/77 11/14/24 18:08 105 H 94 11/14/24 18:06 114 H 93 11/14/24 18:03 108 H 95 11/14/24 17:58 111 H 140/94 96 11/14/24 17:53 109 H 96 11/14/24 17:48 104 H 96 11/14/24 17:44 108 H 148/102 H 11/14/24 17:43 108 H 94 11/14/24 17:39 108 H 91 11/14/24 17:38 112 H 96 11/14/24 17:33 104 H 96 11/14/24 17:28 104 H 148/96 H 96 11/14/24 17:23 110 H 97 11/14/24 17:18 111 H 97 11/14/24 17:13 96 11/14/24 17:13 109 H 11/14/24 17:13 108 H 146/98 H 11/14/24 17:08 107 H 96 11/14/24 17:03 109 H 96 11/14/24 16:58 110 H 145/102 H 96 11/14/24 16:53 105 H 96 11/14/24 16:48 109 H 95 11/14/24 16:47 108 H 94 11/14/24 16:43 95 11/14/24 16:43 109 H 11/14/24 16:43 102 H 148/95 H 11/14/24 16:38 103 H 96 11/14/24 16:33 99 H 95 11/14/24 16:30 17 11/14/24 16:28 95 11/14/24 16:28 101 H 11/14/24 16:28 100 H 143/91 H 11/14/24 16:23 100 H 96 11/14/24 16:19 105 H 94 11/14/24 16:18 105 H 95 11/14/24 16:13 93 11/14/24 16:13 104 H 11/14/24 16:13 105 H 140/97 94 11/14/24 16:11 36.8 C 19 11/14/24 16:08 101 H 94 11/14/24 16:06 101 H 94 11/14/24 16:03 102 H 97 11/14/24 15:58 97 11/14/24 15:58 99 H 11/14/24 15:58 100 H 148/95 H 11/14/24 15:53 101 H 97 11/14/24 15:48 93 H 96 11/14/24 15:43 89 136/88 96 11/14/24 15:38 98 H 97 11/14/24 15:33 96 H 96 11/14/24 15:30 19 11/14/24 15:28 96 11/14/24 15:28 97 H 11/14/24 15:28 96 H 145/93 H 11/14/24 15:26 37.0 C 11/14/24 15:23 95 H 98 11/14/24 15:18 99 H 97 11/14/24 15:13 97 11/14/24 15:13 99 H 11/14/24 15:13 96 H 145/91 H 11/14/24 15:08 96 H 97 11/14/24 15:03 97 H 96 11/14/24 14:58 96 11/14/24 14:58 98 H 11/14/24 14:58 100 H 143/92 H 11/14/24 14:53 96 H 97 11/14/24 14:48 103 H 96 11/14/24 14:43 93 H 145/95 H 96 11/14/24 14:38 99 H 97 11/14/24 14:33 101 H 98 11/14/24 14:30 17 11/14/24 14:28 100 H 140/91 97 11/14/24 14:23 96 H 97 11/14/24 14:18 93 H 96 11/14/24 14:13 97 11/14/24 14:13 97 H 11/14/24 14:13 102 H 146/98 H 11/14/24 14:08 98 H 97 11/14/24 14:03 100 H 97 11/14/24 13:58 101 H 139/91 97 11/14/24 13:53 101 H 98 11/14/24 13:48 106 H 98 11/14/24 13:43 97 11/14/24 13:43 97 H 11/14/24 13:43 95 H 139/92 11/14/24 13:38 100 H 98 11/14/24 13:33 99 H 98 11/14/24 13:30 13 11/14/24 13:28 100 H 139/94 94 11/14/24 13:23 107 H 97 11/14/24 13:20 36.7 C 11/14/24 13:18 103 H 97 11/14/24 13:13 101 H 146/93 H 98 11/14/24 13:08 101 H 96 11/14/24 13:03 100 H 96 11/14/24 12:58 101 H 137/83 96 11/14/24 12:53 98 H 96 11/14/24 12:48 99 H 96 11/14/24 12:43 92 11/14/24 12:43 98 H 11/14/24 12:43 97 H 139/87 11/14/24 12:38 91 11/14/24 12:38 102 H 11/14/24 12:38 108 H 91 11/14/24 12:33 99 H 97 11/14/24 12:30 14 11/14/24 12:28 96 11/14/24 12:28 97 H 11/14/24 12:28 88 131/75 11/14/24 12:23 99 H 96 11/14/24 12:18 95 H 96 11/14/24 12:13 98 H 135/81 97 11/14/24 12:08 95 H 96 11/14/24 12:03 99 H 97 11/14/24 11:58 96 11/14/24 11:58 98 H 11/14/24 11:58 98 H 136/89 11/14/24 11:53 102 H 96 11/14/24 11:52 92 H 94 11/14/24 11:48 90 94 11/14/24 11:46 91 H 94 11/14/24 11:43 94 H 142/91 H 97 11/14/24 11:38 99 H 98 11/14/24 11:33 36.8 C 98 H 98 11/14/24 11:30 15 11/14/24 11:28 98 11/14/24 11:28 104 H 11/14/24 11:28 103 H 140/96 11/14/24 11:23 103 H 95 11/14/24 11:18 100 H 98 11/14/24 11:13 99 H 137/93 97 11/14/24 11:08 99 H 98 11/14/24 11:03 100 H 98 11/14/24 10:58 98 11/14/24 10:58 102 H 11/14/24 10:58 100 H 137/93 11/14/24 10:53 101 H 97 11/14/24 10:48 104 H 97 11/14/24 10:44 103 H 137/90 11/14/24 10:43 103 H 98 11/14/24 10:38 103 H 99 11/14/24 10:33 100 H 97 11/14/24 10:30 13 11/14/24 10:29 101 H 141/97 H 11/14/24 10:28 102 H 98 11/14/24 10:23 101 H 99 11/14/24 10:18 104 H 96 11/14/24 10:15 13 11/14/24 10:15 13 11/14/24 10:13 97 11/14/24 10:13 103 H 11/14/24 10:13 98 H 143/89 H 11/14/24 10:08 100 H 97 11/14/24 10:03 110 H 97 11/14/24 10:00 16 11/14/24 10:00 16 11/14/24 09:58 99 H 141/88 H 97 11/14/24 09:53 98 H 96 11/14/24 09:48 98 H 98 11/14/24 09:45 16 11/14/24 09:45 16 11/14/24 09:43 98 11/14/24 09:43 99 H 11/14/24 09:43 100 H 140/88 11/14/24 09:38 100 H 96 11/14/24 09:33 100 H 98 11/14/24 09:30 16 11/14/24 09:30 15 11/14/24 09:30 15 11/14/24 09:28 97 11/14/24 09:28 96 H 11/14/24 09:28 96 H 143/86 H 11/14/24 09:23 98 H 97 11/14/24 09:18 98 H 97 11/14/24 09:15 12 11/14/24 09:15 12 11/14/24 09:13 98 11/14/24 09:13 99 H 11/14/24 09:13 100 H 136/81 11/14/24 09:10 13 11/14/24 09:10 13 11/14/24 09:08 100 H 96 11/14/24 09:07 100 H 141/88 H 11/14/24 09:05 102 H 12 134/88 11/14/24 09:03 97 11/14/24 09:03 102 H 11/14/24 09:03 100 H 145/90 H 11/14/24 09:01 102 H 147/92 H 11/14/24 08:58 112 H 98 11/14/24 08:53 115 H 100 11/14/24 08:48 115 H 98 11/14/24 08:47 105 H 143/102 H 11/14/24 08:43 103 H 100 11/14/24 08:38 100 H 100 11/14/24 08:33 99 H 99 11/14/24 08:30 15 11/14/24 08:28 99 H 98 11/14/24 08:23 98 H 99 11/14/24 08:18 100 H 99 11/14/24 08:17 99 H 138/99 11/14/24 08:13 101 H 99 11/14/24 08:08 101 H 96 11/14/24 08:03 101 H 99 11/14/24 08:00 11/14/24 07:58 96 H 98 11/14/24 07:53 89 96 11/14/24 07:49 96 H 159/97 H 11/14/24 07:48 96 H 100 11/14/24 07:43 90 99 11/14/24 07:38 92 H 99 11/14/24 07:33 94 H 98 11/14/24 07:30 15 11/14/24 07:28 89 100 11/14/24 07:26 90 146/100 H 11/14/24 07:23 92 H 100 11/14/24 07:18 98 11/14/24 07:18 89 11/14/24 07:18 92 H 138/102 H 11/14/24 07:13 92 H 99 11/14/24 07:09 36.9 C 11/14/24 07:08 91 H 98 11/14/24 07:03 90 96 11/14/24 07:00 36.9 C 16 11/14/24 06:58 93 H 100 11/14/24 06:53 88 99 11/14/24 06:48 97 11/14/24 06:48 91 H 11/14/24 06:48 85 151/96 H 11/14/24 06:43 84 99 11/14/24 06:38 83 99 11/14/24 06:33 86 99 11/14/24 06:30 16 11/14/24 06:30 16 11/14/24 06:28 82 99 11/14/24 06:23 82 99 11/14/24 06:18 83 100 11/14/24 06:16 76 145/96 H 11/14/24 06:13 84 98 11/14/24 06:08 82 98 11/14/24 06:03 82 100 11/14/24 05:59 77 165/103 H 11/14/24 05:58 77 99 11/14/24 05:53 87 98 11/14/24 05:48 86 100 11/14/24 05:43 76 98 11/14/24 05:38 78 99 11/14/24 05:33 83 99 11/14/24 05:30 16 11/14/24 05:30 16 11/14/24 05:29 79 158/102 H 11/14/24 05:28 84 99 11/14/24 05:23 79 99 11/14/24 05:18 86 98 11/14/24 05:13 83 99 11/14/24 05:08 78 98 11/14/24 05:03 80 99 11/14/24 04:58 82 99 11/14/24 04:55 87 91 11/14/24 04:53 86 99 11/14/24 04:52 86 147/92 H 11/14/24 04:48 94 H 163/119 H 97 11/14/24 04:43 107 H 97 11/14/24 04:40 77 149/106 H 11/14/24 04:38 78 98 11/14/24 04:36 81 155/100 H 11/14/24 04:34 87 91 11/14/24 04:33 87 99 11/14/24 04:30 78 16 149/100 H 11/14/24 04:29 82 92 11/14/24 04:28 82 100 11/14/24 04:25 81 151/100 H 11/14/24 04:23 98 11/14/24 04:23 82 11/14/24 04:23 87 93 11/14/24 04:20 81 157/105 H 11/14/24 04:18 79 98 11/14/24 04:16 82 156/103 H 11/14/24 04:13 89 92 11/14/24 04:11 80 161/103 H 11/14/24 04:10 84 94 11/14/24 04:08 81 98 11/14/24 04:06 82 154/100 H 11/14/24 04:05 83 91 11/14/24 04:03 80 97 11/14/24 04:01 81 143/104 H 11/14/24 03:58 78 100 11/14/24 03:57 77 161/103 H 11/14/24 03:53 99 11/14/24 03:53 85 11/14/24 03:53 83 93 11/14/24 03:51 80 155/103 H 11/14/24 03:48 85 L 11/14/24 03:48 85 11/14/24 03:48 84 92 11/14/24 03:45 79 142/96 H 11/14/24 03:43 90 98 11/14/24 03:40 93 H 91 11/14/24 03:38 85 94 11/14/24 03:34 87 91 11/14/24 03:33 86 97 11/14/24 03:30 16 11/14/24 03:30 16 11/14/24 03:30 16 11/14/24 03:30 16 11/14/24 03:28 89 L 11/14/24 03:28 84 11/14/24 03:28 84 88 L 11/14/24 03:24 81 162/107 H 11/14/24 03:23 77 100 11/14/24 03:18 79 100 11/14/24 03:13 80 99 11/14/24 03:09 76 160/102 H 11/14/24 03:08 78 99 11/14/24 03:03 90 100 11/14/24 02:58 93 H 100 11/14/24 02:54 83 159/100 H 11/14/24 02:53 83 100 11/14/24 02:48 86 100 11/14/24 02:43 82 100 11/14/24 02:38 88 99 11/14/24 02:37 82 156/100 H 11/14/24 02:34 93 H 164/97 H 11/14/24 02:33 93 H 100 11/14/24 02:30 16 11/14/24 02:30 16 11/14/24 02:28 82 99 11/14/24 02:23 81 99 11/14/24 02:18 83 100 11/14/24 02:13 81 100 11/14/24 02:08 85 100 11/14/24 02:06 82 162/102 H 11/14/24 02:03 99 H 100 11/14/24 01:58 84 100 11/14/24 01:53 79 100 11/14/24 01:48 84 99 11/14/24 01:43 81 99 11/14/24 01:38 80 100 11/14/24 01:34 36.7 C 16 11/14/24 01:34 36.7 C 16 11/14/24 01:33 79 100 11/14/24 01:30 16 11/14/24 01:30 16 11/14/24 01:05 84 158/94 H 11/14/24 01:00 84 16 152/100 H 98 O2 Del Method 11/14/24 23:09 11/14/24 23:08 11/14/24 23:04 11/14/24 23:02 11/14/24 22:59 11/14/24 22:58 11/14/24 22:57 11/14/24 22:03 11/14/24 22:01 11/14/24 21:58 11/14/24 21:53 11/14/24 21:48 11/14/24 21:46 11/14/24 21:43 11/14/24 21:38 11/14/24 21:33 11/14/24 21:31 11/14/24 21:28 11/14/24 21:23 11/14/24 21:18 11/14/24 21:13 11/14/24 21:12 11/14/24 21:08 11/14/24 21:05 11/14/24 21:03 11/14/24 21:00 11/14/24 21:00 11/14/24 20:58 11/14/24 20:53 11/14/24 20:48 11/14/24 20:43 11/14/24 20:43 11/14/24 20:43 11/14/24 20:38 11/14/24 20:36 11/14/24 20:33 11/14/24 20:30 11/14/24 20:30 11/14/24 20:28 11/14/24 20:23 11/14/24 20:20 11/14/24 20:18 11/14/24 20:13 11/14/24 20:11 11/14/24 20:08 11/14/24 20:05 11/14/24 20:03 11/14/24 20:00 11/14/24 20:00 11/14/24 19:58 11/14/24 19:58 11/14/24 19:58 11/14/24 19:53 11/14/24 19:48 11/14/24 19:47 11/14/24 19:43 11/14/24 19:43 11/14/24 19:43 11/14/24 19:38 11/14/24 19:33 11/14/24 19:30 11/14/24 19:28 11/14/24 19:28 11/14/24 19:28 11/14/24 19:23 11/14/24 19:22 11/14/24 19:18 11/14/24 19:14 11/14/24 19:13 11/14/24 19:08 11/14/24 19:03 11/14/24 19:00 11/14/24 19:00 11/14/24 18:58 11/14/24 18:58 11/14/24 18:58 11/14/24 18:53 11/14/24 18:48 11/14/24 18:43 11/14/24 18:43 11/14/24 18:43 11/14/24 18:38 11/14/24 18:33 11/14/24 18:29 11/14/24 18:28 11/14/24 18:23 11/14/24 18:18 11/14/24 18:13 11/14/24 18:13 11/14/24 18:13 11/14/24 18:08 11/14/24 18:06 11/14/24 18:03 11/14/24 17:58 11/14/24 17:53 11/14/24 17:48 11/14/24 17:44 11/14/24 17:43 11/14/24 17:39 11/14/24 17:38 11/14/24 17:33 11/14/24 17:28 11/14/24 17:23 11/14/24 17:18 11/14/24 17:13 11/14/24 17:13 11/14/24 17:13 11/14/24 17:08 11/14/24 17:03 11/14/24 16:58 11/14/24 16:53 11/14/24 16:48 11/14/24 16:47 11/14/24 16:43 11/14/24 16:43 11/14/24 16:43 11/14/24 16:38 11/14/24 16:33 11/14/24 16:30 11/14/24 16:28 11/14/24 16:28 11/14/24 16:28 11/14/24 16:23 11/14/24 16:19 11/14/24 16:18 11/14/24 16:13 11/14/24 16:13 11/14/24 16:13 11/14/24 16:11 11/14/24 16:08 11/14/24 16:06 11/14/24 16:03 11/14/24 15:58 11/14/24 15:58 11/14/24 15:58 11/14/24 15:53 11/14/24 15:48 11/14/24 15:43 11/14/24 15:38 11/14/24 15:33 11/14/24 15:30 11/14/24 15:28 11/14/24 15:28 11/14/24 15:28 11/14/24 15:26 11/14/24 15:23 11/14/24 15:18 11/14/24 15:13 11/14/24 15:13 11/14/24 15:13 11/14/24 15:08 11/14/24 15:03 11/14/24 14:58 11/14/24 14:58 11/14/24 14:58 11/14/24 14:53 11/14/24 14:48 11/14/24 14:43 11/14/24 14:38 11/14/24 14:33 11/14/24 14:30 11/14/24 14:28 11/14/24 14:23 11/14/24 14:18 11/14/24 14:13 11/14/24 14:13 11/14/24 14:13 11/14/24 14:08 11/14/24 14:03 11/14/24 13:58 11/14/24 13:53 11/14/24 13:48 11/14/24 13:43 11/14/24 13:43 11/14/24 13:43 11/14/24 13:38 11/14/24 13:33 11/14/24 13:30 11/14/24 13:28 11/14/24 13:23 11/14/24 13:20 11/14/24 13:18 11/14/24 13:13 11/14/24 13:08 11/14/24 13:03 11/14/24 12:58 11/14/24 12:53 11/14/24 12:48 11/14/24 12:43 11/14/24 12:43 11/14/24 12:43 11/14/24 12:38 11/14/24 12:38 11/14/24 12:38 11/14/24 12:33 11/14/24 12:30 11/14/24 12:28 11/14/24 12:28 11/14/24 12:28 11/14/24 12:23 11/14/24 12:18 11/14/24 12:13 11/14/24 12:08 11/14/24 12:03 11/14/24 11:58 11/14/24 11:58 11/14/24 11:58 11/14/24 11:53 11/14/24 11:52 11/14/24 11:48 11/14/24 11:46 11/14/24 11:43 11/14/24 11:38 11/14/24 11:33 11/14/24 11:30 11/14/24 11:28 11/14/24 11:28 11/14/24 11:28 11/14/24 11:23 11/14/24 11:18 11/14/24 11:13 11/14/24 11:08 11/14/24 11:03 11/14/24 10:58 11/14/24 10:58 11/14/24 10:58 11/14/24 10:53 11/14/24 10:48 11/14/24 10:44 11/14/24 10:43 11/14/24 10:38 11/14/24 10:33 11/14/24 10:30 11/14/24 10:29 11/14/24 10:28 11/14/24 10:23 11/14/24 10:18 11/14/24 10:15 11/14/24 10:15 11/14/24 10:13 11/14/24 10:13 11/14/24 10:13 11/14/24 10:08 11/14/24 10:03 11/14/24 10:00 11/14/24 10:00 11/14/24 09:58 11/14/24 09:53 11/14/24 09:48 11/14/24 09:45 11/14/24 09:45 11/14/24 09:43 11/14/24 09:43 11/14/24 09:43 11/14/24 09:38 11/14/24 09:33 11/14/24 09:30 11/14/24 09:30 11/14/24 09:30 11/14/24 09:28 11/14/24 09:28 11/14/24 09:28 11/14/24 09:23 11/14/24 09:18 11/14/24 09:15 11/14/24 09:15 11/14/24 09:13 11/14/24 09:13 11/14/24 09:13 11/14/24 09:10 11/14/24 09:10 11/14/24 09:08 11/14/24 09:07 11/14/24 09:05 11/14/24 09:03 11/14/24 09:03 11/14/24 09:03 11/14/24 09:01 11/14/24 08:58 11/14/24 08:53 11/14/24 08:48 11/14/24 08:47 11/14/24 08:43 11/14/24 08:38 11/14/24 08:33 11/14/24 08:30 11/14/24 08:28 11/14/24 08:23 11/14/24 08:18 11/14/24 08:17 11/14/24 08:13 11/14/24 08:08 11/14/24 08:03 11/14/24 08:00 Room Air 11/14/24 07:58 11/14/24 07:53 11/14/24 07:49 11/14/24 07:48 11/14/24 07:43 11/14/24 07:38 11/14/24 07:33 11/14/24 07:30 11/14/24 07:28 11/14/24 07:26 11/14/24 07:23 11/14/24 07:18 11/14/24 07:18 11/14/24 07:18 11/14/24 07:13 11/14/24 07:09 11/14/24 07:08 11/14/24 07:03 11/14/24 07:00 11/14/24 06:58 11/14/24 06:53 11/14/24 06:48 11/14/24 06:48 11/14/24 06:48 11/14/24 06:43 11/14/24 06:38 11/14/24 06:33 11/14/24 06:30 11/14/24 06:30 11/14/24 06:28 11/14/24 06:23 11/14/24 06:18 11/14/24 06:16 11/14/24 06:13 11/14/24 06:08 11/14/24 06:03 11/14/24 05:59 11/14/24 05:58 11/14/24 05:53 11/14/24 05:48 11/14/24 05:43 11/14/24 05:38 11/14/24 05:33 11/14/24 05:30 11/14/24 05:30 11/14/24 05:29 11/14/24 05:28 11/14/24 05:23 11/14/24 05:18 11/14/24 05:13 11/14/24 05:08 11/14/24 05:03 11/14/24 04:58 11/14/24 04:55 11/14/24 04:53 11/14/24 04:52 11/14/24 04:48 11/14/24 04:43 11/14/24 04:40 11/14/24 04:38 11/14/24 04:36 11/14/24 04:34 11/14/24 04:33 11/14/24 04:30 11/14/24 04:29 11/14/24 04:28 11/14/24 04:25 11/14/24 04:23 11/14/24 04:23 11/14/24 04:23 11/14/24 04:20 11/14/24 04:18 11/14/24 04:16 11/14/24 04:13 11/14/24 04:11 11/14/24 04:10 11/14/24 04:08 11/14/24 04:06 11/14/24 04:05 11/14/24 04:03 11/14/24 04:01 11/14/24 03:58 11/14/24 03:57 11/14/24 03:53 11/14/24 03:53 11/14/24 03:53 11/14/24 03:51 11/14/24 03:48 11/14/24 03:48 11/14/24 03:48 11/14/24 03:45 11/14/24 03:43 11/14/24 03:40 11/14/24 03:38 11/14/24 03:34 11/14/24 03:33 11/14/24 03:30 11/14/24 03:30 11/14/24 03:30 11/14/24 03:30 11/14/24 03:28 11/14/24 03:28 11/14/24 03:28 11/14/24 03:24 11/14/24 03:23 11/14/24 03:18 11/14/24 03:13 11/14/24 03:09 11/14/24 03:08 11/14/24 03:03 11/14/24 02:58 11/14/24 02:54 11/14/24 02:53 11/14/24 02:48 11/14/24 02:43 11/14/24 02:38 11/14/24 02:37 11/14/24 02:34 11/14/24 02:33 11/14/24 02:30 11/14/24 02:30 11/14/24 02:28 11/14/24 02:23 11/14/24 02:18 11/14/24 02:13 11/14/24 02:08 11/14/24 02:06 11/14/24 02:03 11/14/24 01:58 11/14/24 01:53 11/14/24 01:48 11/14/24 01:43 11/14/24 01:38 11/14/24 01:34 11/14/24 01:34 11/14/24 01:33 11/14/24 01:30 11/14/24 01:30 11/14/24 01:05 11/14/24 01:00 Pain Intensity Bilateral Chest: Pain Intensity: 4 Transfer of Care Handoff Completed per policy Notes Mental Status: alert / awake / arousable Nausea / Vomiting: adequately controlled Pain: adequately controlled Airway Patency, RR, SpO2: stable & adequate BP & HR: stable & adequate Hydration State: stable & adequate Anesthetic Complications: no major complications apparent
--- NOTE | 2024-11-14 23:13 | Anesthesia Procedure Note ---
Date of Service November 14, 2024 Anesthesia Post Epidural Note Vital Signs Vital Signs: Temp Pulse Resp BP Pulse Ox O2 Del Method O2 Flow Rate 36.9 C 94 H 16 111/64 94 Room Air 97 11/14/24 19:00 11/14/24 23:10 11/14/24 21:00 11/14/24 23:09 11/14/24 23:10 11/14/24 08:00 11/13/24 21:41 Pain Intensity Bilateral Chest: Pain Intensity: 4 Notes Mental Status: alert / awake / arousable Nausea / Vomiting: adequately controlled Pain: adequately controlled Airway Patency, RR, SpO2: stable & adequate BP & HR: stable & adequate Hydration State: stable & adequate Neuraxial Anesthesia: was administered and sensory block is resolving Anesthetic Complications: no major complications apparent and Pt Satisfied with anesthetic care Epidural: Removed without complications and With tip intact
[2024-11-14] MEDS ORDERED: NO NARCOTICS OR SEDATIVES SCH (23:15)
[2024-11-14] MEDS ORDERED: DC INTRASPINAL MORPHINE SCH (23:15)
[2024-11-14] MEDS ORDERED: SODIUM CHLORIDE 0.9% 1,000 ML IV SCH (23:15)
[2024-11-14] MEDS: LORazepam 0.5 MG TAB PO STA (23:55)
[2024-11-15] MEDS ORDERED: MAGNESIUM HYDROXIDE SUSP 30 ML UDC PO PRN (00:13)
[2024-11-15] MEDS ORDERED: SENNA 8.6 MG TAB PO PRN (00:13)
[2024-11-15] MEDS ORDERED: HYDROCORTISONE ACETATE 25 MG SUPP PR PRN (00:13)
[2024-11-15] MEDS ORDERED: CALCIUM CARBONATE 500 MG CHEWABLE TAB PO PRN (00:13)
[2024-11-15] MEDS ORDERED: BENZOCAINE 20% SPRY 85 APPLN/85 GM CAN EXT PRN (00:13)
[2024-11-15] MEDS: DIPHTHER/TETAN/PERTUS Vaccine (Tdap, Adol/Adult) 0.5mL IM ONE (01:14)
[2024-11-15] MEDS: LACTATED RINGER'S 1,000 ML IV SCH (01:15)
[2024-11-15] MEDS: ACETAMINOPHEN 500 MG TAB PO SCH (01:16)
[2024-11-15] MEDS ORDERED: BETAMETH SOD PHOS/ACETATE IA 6 MG/ML IM ONE ×2 (03:00→03:15)
[2024-11-15] MEDS: ACETAMINOPHEN 325 MG TAB PO SCH (04:57)
[2024-11-15] MEDS: OXYTOCIN 20 UNITS/LR 1,002 ML IV SCH (05:02)
[2024-11-15 07:06] LABS: Hematocrit (blood only) 26.7 % (37.0-47.0); Hemoglobin 9.2 g/dl (12.0-16.0); Immature Granulocytes # (auto) 0.06 K/uL (0.01-0.20); Immature Granulocytes % (auto) 0.5 %; Mean Corpuscular Hemoglobin 29.1 pg (25.0-34.0); Mean Corpuscular Volume 84.5 fL (80.0-100.0); Platelet Count 108 K/uL (130-400); RDW Standard Deviation 41.3 fL (36.4-46.3); Red Blood Count 3.16 M/uL (4.20-5.40); White Blood Count 12.55 K/ul (4.8-10.8)
[2024-11-15] MEDS: SIMETHICONE 80 MG CHEW PO SCH (08:37)
[2024-11-15] MEDS: FERROUS SULFATE 325 MG TAB PO SCH (08:38)
[2024-11-15] MEDS: PRENATAL VITAMIN 1 TAB PO SCH (08:38)
[2024-11-15] MEDS: DOCUSATE SODIUM 100 MG CAP PO SCH (08:38)
--- NOTE | 2024-11-15 08:43 | Obstetrical Progress Note ---
Date of Service <Abdoulaye Santamaria MD - Last Filed: 11/15/24 08:43> November 15, 2024 Assessment & Plan <Abdoulaye Santamaria MD - Last Filed: 11/15/24 08:43> (1) care and examination: 24yo post-op day 1 s/p Fells well today. Vital signs stable Continue post- care Encourage ambulation and Pain controlled with Tylenol Hgb stable Plan to stop magnesium Plan to take out gomes catheter <Lisandra Barraza MD - Last Filed: 11/16/24 13:10> (1) care and examination: Subjective <Abdoulaye Santamaria MD - Last Filed: 11/15/24 08:43> 24yo post-op day 1 s/p [] Ambulation: has not tried ambulating Voiding: no voiding problems, gomes catheter in at bedside, normal urine color Passing Gas:: No Diet Tolerance:: regular diet Lochia:: Small Feeding Type:: bottle and breast feeding Current Pain Level: 6/10 controlled with tylenol Resting comfortably this AM in NAD. Denies HERNANDEZ, CP, SOB, N/V/D, LE pain/swelling. Physical Exam <Abdoulaye Santamaria MD - Last Filed: 11/15/24 08:43> General: patient resting comfortably, NAD, non-toxic in appearance, AA&O x 4, answers questions appropriately. Skin: warm, dry, intact HEENT: NC/AT, anicteric sclera, conjunctiva without injection, moist mucus mem branes. Heart: +S1/S2, regular, no m/r/g Lungs: equal air entry bilaterally, no rales/rhonchi/wheezes Abd: +BS, soft, NT/ND, uterine fundus firm at umbilicus, caesarean incision C/D/I. Ext: warm, no clubbing/cyanosis or edema, Ana's neg. Neuro: nonfocal, patient AA&O x 4, speech intact, no facial droop, moving all extremities on command. Results & Data <Abdoulaye Santamaria MD - Last Filed: 11/15/24 08:43> Vital Signs (Past 12 Hours) Vital Signs Temp Pulse Resp BP Pulse Ox 11/15/24 08:33 94 H 98 11/15/24 08:28 100 H 98 11/15/24 08:23 102 H 98 11/15/24 08:18 99 H 99 11/15/24 08:13 100 H 97 11/15/24 08:08 78 96 11/15/24 08:03 96 H 99 11/15/24 07:58 92 H 99 11/15/24 07:53 100 H 99 11/15/24 07:48 99 H 100 11/15/24 07:45 36.8 C 18 11/15/24 07:45 18 11/15/24 07:43 90 98 11/15/24 07:38 99 11/15/24 07:38 87 11/15/24 07:38 85 140/85 11/15/24 07:33 89 99 11/15/24 07:28 89 99 11/15/24 07:23 91 H 99 11/15/24 07:18 93 H 100 11/15/24 07:13 84 99 11/15/24 07:08 97 H 99 11/15/24 07:03 91 H 99 11/15/24 07:01 96 H 136/97 11/15/24 06:58 95 H 98 11/15/24 06:53 91 H 99 11/15/24 06:48 91 H 99 11/15/24 06:43 91 H 99 11/15/24 06:38 103 H 100 11/15/24 06:33 99 H 99 11/15/24 06:28 91 H 99 11/15/24 06:23 97 H 99 11/15/24 06:18 97 H 99 11/15/24 06:13 99 H 99 11/15/24 06:08 97 H 99 11/15/24 06:03 93 H 100 11/15/24 06:01 94 H 140/94 11/15/24 06:00 16 11/15/24 05:58 100 H 100 11/15/24 05:53 91 H 95 11/15/24 05:48 82 97 11/15/24 05:43 80 97 11/15/24 05:38 83 100 11/15/24 05:33 93 H 100 11/15/24 05:28 83 97 11/15/24 05:23 79 96 11/15/24 05:18 88 100 11/15/24 05:13 97 H 99 11/15/24 05:08 99 H 99 11/15/24 05:03 101 H 99 11/15/24 05:01 101 H 148/98 H 11/15/24 05:00 16 11/15/24 04:58 104 H 99 11/15/24 04:53 79 97 11/15/24 04:48 77 97 11/15/24 04:43 76 98 11/15/24 04:38 76 98 11/15/24 04:33 96 H 99 11/15/24 04:30 36.6 C 16 11/15/24 04:28 78 98 11/15/24 04:23 99 H 98 11/15/24 04:18 102 H 100 11/15/24 04:13 99 H 99 11/15/24 04:08 95 H 100 11/15/24 04:03 95 H 100 11/15/24 04:01 71 108/65 11/15/24 04:00 16 11/15/24 03:58 72 97 11/15/24 03:53 72 97 11/15/24 03:48 78 97 11/15/24 03:43 74 96 11/15/24 03:38 85 100 11/15/24 03:33 95 H 100 11/15/24 03:28 74 97 11/15/24 03:23 75 97 11/15/24 03:18 74 96 11/15/24 03:13 74 95 11/15/24 03:08 74 96 11/15/24 03:03 74 96 11/15/24 03:01 72 104/61 11/15/24 03:00 16 11/15/24 02:58 76 96 11/15/24 02:53 73 96 11/15/24 02:48 74 96 11/15/24 02:43 74 96 11/15/24 02:38 74 96 11/15/24 02:33 74 96 11/15/24 02:28 74 95 11/15/24 02:23 74 96 11/15/24 02:18 78 95 11/15/24 02:13 91 H 95 11/15/24 02:08 75 94 11/15/24 02:03 76 95 11/15/24 02:01 75 102/56 L 11/15/24 02:00 16 11/15/24 01:58 78 95 11/15/24 01:53 78 95 11/15/24 01:48 77 94 11/15/24 01:43 77 94 11/15/24 01:38 81 96 11/15/24 01:33 80 95 11/15/24 01:28 85 97 11/15/24 01:23 80 94 11/15/24 01:18 84 96 11/15/24 01:13 81 94 11/15/24 01:08 81 95 11/15/24 01:03 95 H 95 11/15/24 01:00 16 11/15/24 00:59 90 118/64 11/15/24 00:58 91 H 97 11/15/24 00:55 16 11/15/24 00:53 94 H 97 11/15/24 00:49 90 113/58 L 11/15/24 00:48 80 92 11/15/24 00:43 83 88 L 11/15/24 00:39 93 H 108/60 11/15/24 00:38 93 H 97 11/15/24 00:33 95 H 97 11/15/24 00:30 86 87 L 11/15/24 00:29 96 H 111/63 11/15/24 00:28 97 H 97 11/15/24 00:23 95 H 96 11/15/24 00:19 100 H 106/57 L 11/15/24 00:18 99 H 97 11/15/24 00:13 95 H 97 11/15/24 00:09 98 H 106/56 L 11/15/24 00:08 99 H 97 11/15/24 00:03 81 91 11/15/24 00:00 16 11/14/24 23:59 84 101/55 L 11/14/24 23:58 86 91 11/14/24 23:55 16 11/14/24 23:53 90 96 11/14/24 23:49 97 H 101/57 L 11/14/24 23:48 97 H 96 11/14/24 23:43 91 11/14/24 23:43 86 11/14/24 23:43 86 89 L 11/14/24 23:39 98 H 99/58 L 11/14/24 23:38 94 H 98 11/14/24 23:33 96 H 97 11/14/24 23:29 96 H 105/60 11/14/24 23:28 97 H 97 11/14/24 23:23 97 11/14/24 23:23 91 H 11/14/24 23:23 90 106/60 11/14/24 23:19 95 H 108/61 11/14/24 23:18 94 H 112/59 L 98 11/14/24 23:13 87 90 11/14/24 23:10 94 H 94 11/14/24 23:09 93 H 111/64 11/14/24 23:08 95 H 95 11/14/24 23:04 94 H 94 11/14/24 23:02 97 H 97 11/14/24 22:59 95 H 93 11/14/24 22:58 98 H 116/70 11/14/24 22:57 98 H 98 11/14/24 22:55 36.8 C 11/14/24 22:09 16 11/14/24 22:09 16 11/14/24 22:03 114 H 97 11/14/24 22:01 114 H 164/100 H 11/14/24 22:00 16 11/14/24 22:00 16 11/14/24 21:58 114 H 99 11/14/24 21:53 116 H 97 11/14/24 21:48 119 H 96 11/14/24 21:46 111 H 162/103 H 11/14/24 21:43 112 H 98 11/14/24 21:38 110 H 98 11/14/24 21:33 114 H 98 11/14/24 21:31 114 H 172/109 H 11/14/24 21:30 16 11/14/24 21:30 16 11/14/24 21:28 114 H 97 11/14/24 21:23 126 H 98 11/14/24 21:18 111 H 97 11/14/24 21:13 111 H 97 11/14/24 21:12 109 H 158/103 H 11/14/24 21:08 114 H 97 11/14/24 21:05 131 H 181/131 H 11/14/24 21:03 117 H 98 11/14/24 21:00 16 11/14/24 21:00 16 11/14/24 20:58 111 H 97 11/14/24 20:53 116 H 96 11/14/24 20:48 115 H 96 11/14/24 20:43 96 11/14/24 20:43 116 H 11/14/24 20:43 118 H 156/101 H 11/14/24 20:38 136 H 96 Supervising Physician <Lisandra Barraza MD - Last Filed: 11/16/24 13:10> Co-Signing Physician Notes Resident Physician Supervision Note: I interviewed and examined the patient. Discussed with Dr. Santamaria and agree with findings and plan as documented in the note. Any exceptions or clarifications are listed here: [ ] Documented By: Lisandra Barraza MD, FACOG
[2024-11-15 13:49] LABS: Hematocrit (blood only) 24.4 % (37.0-47.0); Hemoglobin 8.3 g/dl (12.0-16.0); Mean Corpuscular Hemoglobin 28.5 pg (25.0-34.0); Mean Corpuscular Volume 83.8 fL (80.0-100.0); Platelet Count 104 K/uL (130-400); RDW Standard Deviation 40.9 fL (36.4-46.3); Red Blood Count 2.91 M/uL (4.20-5.40); White Blood Count 9.82 K/ul (4.8-10.8)
[2024-11-15 14:23] LABS: Alanine Aminotransferase 10.0 U/L (7-52); Albumin Globulin Ratio 1.1 (0.9-2); Alkaline Phosphatase 108.0 U/L (34-104); Anion Gap 5.0 (3-11); Bilirubin,Total 0.2 mg/dl (0.2-1.0); Blood Urea Nitrogen 11.0 mg/dl (6-23); Calcium 6.7 mg/dl (8.6-10.3); Carbon Dioxide 22.0 mmol/L (21-32); Chloride 105.0 mmol/L (98-107); Creatinine Clr Calc Pharmacy 89.7 ml/min; Globulin 2.2 gm/dl (2.5-4.0); Glucose 91.0 mg/dl (70-99(Fasting)); Potassium 4.1 mmol/L (3.5-5.1); Sodium 132.0 mmol/L (136-145); Total Protein 4.7 gm/dl (6.0-8.3)
[2024-11-15] MEDS ORDERED: ONDANSETRON INJ 2 MG/ML 2 ML VIAL IV PRN (17:06)
[2024-11-15] MEDS ORDERED: PROMETHAZINE 12.5 MG/50.5 ML BAG IV PRN (17:06)
[2024-11-15] MEDS ORDERED: diphenhydrAMINE Capsule 25 MG CAP PO PRN (17:06)
[2024-11-15] MEDS ORDERED: diphenhydrAMINE 50 MG/ML VIAL IV PRN (17:06)
[2024-11-15] MEDS ORDERED: HYDROmorphone INJ 0.5 MG/0.5 ML SYR IV PRN (17:06)
[2024-11-15] MEDS: busPIRone 5 MG TAB PO SCH (20:57)
[2024-11-15] MEDS: IBUPROFEN 600 MG TAB PO SCH (23:10)
--- NOTE | 2024-11-16 05:42 | Obstetrical Progress Note ---
Date of Service <Abdoulaye Santamaria MD - Last Filed: 11/16/24 07:54> November 16, 2024 Assessment & Plan <Abdoulaye Santamaria MD - Last Filed: 11/16/24 07:54> (1) care and examination: 24yo post-op day 2 s/p Fells well today. Vital signs stable Continue post- care Encourage ambulation and Pain controlled with Tylenol, Ibuprofen Hgb stable Will monitor labs <Stephanie Mccarthy DO - Last Filed: 11/16/24 08:18> (1) care and examination: Subjective <Abdoulaye Santamaria MD - Last Filed: 11/16/24 07:54> 24yo post-op day 2 s/p Ambulation: ambulating normally Voiding: no voiding problems Passing Gas:: Yes Diet Tolerance:: regular diet Lochia:: Small Feeding Type:: breast and bottle feeding Current Pain Level: 6/10 controlled with ibuprofen and tylenol and occasional oxycodone Resting comfortably this AM in NAD. Denies HERNANDEZ, CP, SOB, N/V/D, LE pain/swelling. Physical Exam <Abdoulaye Santamaria MD - Last Filed: 11/16/24 07:54> General: patient resting comfortably, NAD, non-toxic in appearance, answers questions appropriately. Skin: warm, dry, intact HEENT: NC/AT, anicteric sclera, conjunctiva without injection, moist mucus membranes. Heart: S1/S2 heard, regular, no m/r/g Lungs: equal air entry bilaterally, no rales/rhonchi/wheezes Abd: +BS, soft, NT/ND, uterine fundus firm at umbilicus, caesarian incision C/D/I. Ext: warm, no clubbing/cyanosis or edema, Ana's neg. Neuro: nonfocal, patient AAOx4, speech intact, no facial droop, moving all extremities on command. Results & Data <Abdoulaye Santamaria MD - Last Filed: 11/16/24 07:54> Vital Signs (Past 12 Hours) Vital Signs Temp Pulse Resp BP Pulse Ox O2 Del Method 11/16/24 03:23 36.7 C 84 16 132/88 97 Room Air 11/15/24 23:24 36.6 C 87 16 125/81 98 Room Air 11/15/24 20:05 36.3 C L 90 16 131/85 98 Room Air Supervising Physician <Stephanie Mccarthy DO - Last Filed: 11/16/24 08:18> Co-Signing Physician Notes Resident Physician Supervision Note: I interviewed and examined the patient. Discussed with Dr. Santamaria and agree with findings and plan as documented in the note. Any exceptions or clarifications are listed here: POD#2 - BP wnl, awaiting recheck of labs. Currently taking 200mg labetalol BID - will send Rx to pharmacy, as well as Rx for oxycodone #10 tabs. Anticipate DC home tomorrow. Documented By: Stephanie Mccarthy DO
[2024-11-16 07:45] LABS: Hematocrit (blood only) 23.0 % (37.0-47.0); Hemoglobin 7.6 g/dl (12.0-16.0); Mean Corpuscular Hemoglobin 28.9 pg (25.0-34.0); Mean Corpuscular Volume 87.5 fL (80.0-100.0); Platelet Count 100 K/uL (130-400); RDW Standard Deviation 43.2 fL (36.4-46.3); Red Blood Count 2.63 M/uL (4.20-5.40); White Blood Count 7.50 K/ul (4.8-10.8)
[2024-11-16 08:01] LABS: Alanine Aminotransferase 9.0 U/L (7-52); Albumin Globulin Ratio 1.3 (0.9-2); Alkaline Phosphatase 95.0 U/L (34-104); Anion Gap 4.0 (3-11); Bilirubin,Total 0.2 mg/dl (0.2-1.0); Blood Urea Nitrogen 13.0 mg/dl (6-23); Calcium 7.1 mg/dl (8.6-10.3); Carbon Dioxide 25.0 mmol/L (21-32); Chloride 109.0 mmol/L (98-107); Creatinine Clr Calc Pharmacy 88.7 ml/min; Globulin 2.0 gm/dl (2.5-4.0); Glucose 72.0 mg/dl (70-99(Fasting)); Potassium 4.6 mmol/L (3.5-5.1); Sodium 138.0 mmol/L (136-145); Total Protein 4.6 gm/dl (6.0-8.3)
[2024-11-16] MEDS: IBUPROFEN 600 MG TAB PO PRN (23:20)
--- NOTE | 2024-11-17 05:16 | Obstetrical Progress Note ---
Date of Service <Abdoulaye Santamaria MD - Last Filed: 11/17/24 06:54> November 17, 2024 Assessment & Plan <Abdoulaye Santamaria MD - Last Filed: 11/17/24 06:54> (1) S/P section: (2) care and examination: 24yo post-op day 3 s/p Fells well today. Vital signs stable Continue post- care Encourage ambulation and cont breast/bottle feeding Pain controlled with Tylenol, Ibuprofen Hgb and vitals stable Follow up with OB provider for blood pressure check in 3-5 days Plan to d/c, follow up with OB provider in 6 weeks D/c instructions discussed <Myra Campbell MD, FACOG - Last Filed: 11/17/24 07:48> (1) S/P section: (2) care and examination: Subjective <Abdoulaye Santamaria MD - Last Filed: 11/17/24 06:54> 24yo post-op day 3 s/p Ambulation: ambulating normally Voiding: no voiding problems Passing Gas:: Yes Diet Tolerance:: regular diet Lochia:: Small Feeding Type:: breast and bottle feeding Current Pain Level: 0/10 controlled with ibuprofen and tylenol if needed Resting comfortably this AM in NAD. Denies HERNANDEZ, CP, SOB, N/V/D, LE pain/swelling. Physical Exam <Abdoulaye Santamaria MD - Last Filed: 11/17/24 06:54> General: patient resting comfortably, NAD, non-toxic in appearance, answers questions appropriately Skin: warm, dry, intact Heart: S1/S2 heard, regular, no m/r/g Lungs: equal air entry bilaterally, no rales/rhonchi/wheezes Abd: +BS, soft, NT/ND, uterine fundus firm at umbilicus, incision clean, dry, and intact Ext: warm, no clubbing/cyanosis or edema, Ana's neg Neuro: nonfocal, patient AAOx4, speech intact, no facial droop, moving all extremities on command Results & Data <Abdoulaye Santamaria MD - Last Filed: 11/17/24 06:54> Vital Signs (Past 12 Hours) Vital Signs Temp Pulse Resp BP Pulse Ox O2 Del Method 11/17/24 04:00 36.5 C 80 16 128/84 98 Room Air 11/16/24 23:22 36.6 C 88 16 131/87 99 Room Air 11/16/24 20:30 36.5 C 92 H 17 132/89 99 Room Air Supervising Physician <Myra Campbell MD, FACOG - Last Filed: 11/17/24 07:48> Co-Signing Physician Notes Resident Physician Supervision Note: I interviewed and examined the patient. Discussed with Dr. Santamaria and agree with findings and plan as documented in the note. Any exceptions or clarifications are listed here: stable doing well, eating, voiding, ambulating, good pain control. abd soft ff 2 down nt, incision c/d/i, ext nt calves. pod #3 s/p cs, baby in INBN, pt desires dc home, instructions reviewed. bps look good. needs bp check on thursday. f/u as well 6wk pp. pt aware to call for appts. Documented By: Myra Campbell MD, FACOG Resident Activity Tracking <Abdoulaye Santamaria MD - Last Filed: 11/17/24 06:54> Resident Involvement: Resident Care Provided Care Provided: OB Delivery ()
[2024-11-17 06:07] VITALS: O2SAT 99
[2024-11-17 07:03] LABS: Hematocrit (blood only) 25.9 % (37.0-47.0); Hemoglobin 8.3 g/dl (12.0-16.0); Mean Corpuscular Hemoglobin 28.4 pg (25.0-34.0); Mean Corpuscular Volume 88.7 fL (80.0-100.0); Platelet Count 130 K/uL (130-400); RDW Standard Deviation 44.6 fL (36.4-46.3); Red Blood Count 2.92 M/uL (4.20-5.40); White Blood Count 8.28 K/ul (4.8-10.8)
[2024-11-17 07:19] LABS: Alanine Aminotransferase 12.0 U/L (7-52); Albumin Globulin Ratio 1.2 (0.9-2); Alkaline Phosphatase 108.0 U/L (34-104); Anion Gap 5.0 (3-11); Bilirubin,Total 0.2 mg/dl (0.2-1.0); Blood Urea Nitrogen 9.0 mg/dl (6-23); Calcium 8.0 mg/dl (8.6-10.3); Carbon Dioxide 26.0 mmol/L (21-32); Chloride 108.0 mmol/L (98-107); Creatinine Clr Calc Pharmacy 98.0 ml/min; Globulin 2.5 gm/dl (2.5-4.0); Glucose 69.0 mg/dl (70-99(Fasting)); Potassium 4.4 mmol/L (3.5-5.1); Sodium 139.0 mmol/L (136-145); Total Protein 5.5 gm/dl (6.0-8.3)
[2024-11-17] MEDS: ACETAMINOPHEN 325 MG TAB PO PRN (08:33)
[2024-11-17 08:36] VITALS: RESP 14; TEMP 97.5
[2024-11-17 11:44] VITALS: BP 132/88; PULSE 68
--- NOTE | 2024-11-18 17:34 | Discharge Summary ---
Date of Service November 18, 2024 Admission HPI Per Admitting Provider 24 yo G1 at 36 2/7 wga presented to ER due to chest pressure/pain and elevated bp at home. Uneventful , most recently had normal/low bps at her monthly psych appointment on 11/09. Did travel to [place] 2 wks ago for vacation by car. Following her last psych appt, she and did get a home bp cuff and had normotensive bps. This evening, began having chest pressure, intermittent HERNANDEZ and floaters so took BP and was elevated in the 170s so presented to the ER. In the ER, notes continued chest pressure/pain, HERNANDEZ and floaters have since resolved. Denies SOB, RUQ/epigastric pain. Has been having intermittent swelling in ankles as well but not in calf. +FM; denies ctx, LOF, VB. -In the ER, BPs initially 160s-170s/100s-110s and did persist after 15min repeat with appropriate cuff. Discussion was had in the ER due to meeting dx for PET w/ SF for a 4g mag bolus and 2g/hr after as well as IV labetalol 20mg x 1 that did bring BP down to 154/100 while I was in the room. Since then remained 150s/90s-100s in the ED -ER evaluation included normal cbc other than platelets 107, LFTs wnl, Cr wnl. EKG was wnl per ED doc, normal head ct, ct chest/pe protocol pending due to delay in radiology read but prelim w/o obvious saddle emboli per ED doc. Will be getting duplex on L&D once settled PNI: pre-eclampsai w/ severe features hypothyroid Past advice nurse hx: G1 regular cycles hx chlamydia Discharge Data Consultations 11/14/24 00:09 ED Decision to Admit Stat 11/14/24 00:23 Consult Anesthesiology Stat 11/14/24 21:30 Consult Anesthesiology Stat Procedures Performed Operation Date: 11/14/24 22:00 Actual Procedures p Section in LD for the of a live female child @ 2230(Bilateral) - Lisandra Barraza MD Hospital Course (1) S/P section: (2) care and examination: 24yo post-op day 3 s/p Fells well today. Vital signs stable Continue post- care Encourage ambulation and cont breast/bottle feeding Pain controlled with Tylenol, Ibuprofen Hgb and vitals stable Follow up with OB provider for blood pressure check in 3-5 days Plan to d/c, follow up with OB provider in 6 weeks D/c instructions discussed Coding Level of Care Code 34088 IN/OBS DISCH 30 MIN/LESS Diagnoses S/P section Z98.891 care and examination Z39.2
== END 2024-11-17 12:45 | disposition home or self-care (01) | DRG 787 ==
LOC: ED 21:41 → 4S1 11-14 00:23 → 4E2 11-15 10:04
DX: Z79.899 Other long term (current) drug therapy; O99.343 Other mental disorders complicating pregnancy, third trimester; F90.0 Attention-deficit hyperactivity disorder, predominantly inattentive type; F41.9 Anxiety disorder, unspecified; O61.9 Failed induction of labor, unspecified; O98.82 Other maternal infectious and parasitic diseases complicating childbirth; Z3A.36 36 weeks gestation of pregnancy; O14.14 Severe pre-eclampsia complicating childbirth; O99.283 Endocrine, nutritional and metabolic diseases complicating pregnancy, third trimester; E03.9 Hypothyroidism, unspecified; Z37.0 Single live birth; B95.1 Streptococcus, group B, as the cause of diseases classified elsewhere

== ENCOUNTER 2024-11-19 22:09 | Inpatient (IN) ==
[2024-11-19] MEDS: LABETALOL HCL IV 5 MG/ML 20ML IV STA (22:32)
[2024-11-19] MEDS: MAGNESIUM SULFATE / D5W 1 GM/100 ML BAG IV SCH (22:35)
[2024-11-19] MEDS: LORazepam 1 MG TAB PO STA (22:56)
[2024-11-19 22:59] LABS: Hematocrit (blood only) 23.7 % (37.0-47.0); Hemoglobin 7.7 g/dl (12.0-16.0); Immature Granulocytes # (auto) 0.11 K/uL (0.01-0.20); Immature Granulocytes % (auto) 1.5 %; Mean Corpuscular Hemoglobin 28.6 pg (25.0-34.0); Mean Corpuscular Volume 88.1 fL (80.0-100.0); Platelet Count 165 K/uL (130-400); RDW Standard Deviation 43.8 fL (36.4-46.3); Red Blood Count 2.69 M/uL (4.20-5.40); White Blood Count 7.54 K/ul (4.8-10.8)
[2024-11-19 23:25] LABS: Alanine Aminotransferase 22.0 U/L (7-52); Alkaline Phosphatase 105.0 U/L (34-104); Anion Gap 8.0 (3-11); Bilirubin,Total 0.2 mg/dl (0.2-1.0); Blood Urea Nitrogen 16.0 mg/dl (6-23); Calcium 8.0 mg/dl (8.6-10.3); Carbon Dioxide 19.0 mmol/L (21-32); Chloride 111.0 mmol/L (98-107); Creatinine Clr Calc Pharmacy 97.1 ml/min; Glucose 90.0 mg/dl (70-99(Fasting)); Lipase 39.0 U/L (11-82); Potassium 4.3 mmol/L (3.5-5.1); Sodium 138.0 mmol/L (136-145); Total Protein 5.8 gm/dl (6.0-8.3)
--- NOTE | 2024-11-19 23:57 | Emergency Department Note ---
Impression & Plan Pre-eclampsia in period ED Provider Note NAME: KIM KRAMER AGE: 24 SEX: F : 2000 ARRIVES VIA: Walk-In INFORMANT: Patient, ED PROVIDER(S): Andre Campbell MD CHIEF COMPLAINT: Possible preeclampsia HPI: This is a 24-year-old female presenting for preeclampsia. Patient was seen here about 6 days ago for the same symptoms. She was 36 weeks at that time and had elevated blood pressure. She had the same symptoms including vision changes which include floaters as well as chest heaviness. At that time she had negative CT imaging of the head and chest. She then seen by OB who delivered her child. She notes that she had recurrence of symptoms today with elevated blood pressure and these vision floaters and chest heaviness. She reports no pleurisy, leg pain. She has no bilateral leg swelling for she is already had DVTs done about 6 days ago. Otherwise no nausea vomiting. ROS: See above HPI for pertinent positives & negatives. A total of 10 systems reviewed and were otherwise negative. PAST MEDICAL HISTORY: See Below PAST SURGICAL HISTORY: See Below FAMILY HISTORY: See Below SOCIAL HISTORY: See Below HOME MEDICATIONS: See Below ALLERGIES: See Below VITALS: See Below PHYSICAL EXAMINATION: General: resting comfortably in no acute distress Head: Normocephalic and atraumatic Eyes: Normal inspection, extraocular muscles intact Ear, nose, throat: Normal external exam Neck: Normal range of motion Respiratory: lungs clear to auscultation bilaterally Cardiovascular: Regular rate/rhythm, no murmur GI: soft, nontender, no guarding or rebound Extremities: nontender, moves all extremities, 1+ pitting edema to bilateral lower extremities Neuro: The patient awake and alert, appropriately conversive, no focal deficits, symmetric faces, symmetric no motor drift Skin: Warm, dry, and intact MEDICAL DECISION MAKING: This is a 24-year-old female presenting for preeclampsia. Patient has 6 days . Her blood pressure was 170/110 on arrival. Initially ordered for CT imaging but patient tells me that she had just had this done. Will give IV labetalol, magnesium instead. - IV labetalol plus magnesium 2 g is improved the patient's symptoms. Blood pressure downtrend to 150s. She notes her symptoms are improved. She notes no chest pressure at this time. No shortness of breath. No headache. Vision changes are now gone. - Low concern for PE clinically without tachycardia, hypoxia or tachypnea. She had recent CT imaging and DVT studies that were negative. - Bloodwork is reviewed showing no significant leukocytosis, anemia, electrolyte or creatinine abnormality. Negative troponin - Urinalysis reveals signs of possible contamination. Patient has no current UTI symptoms. Negative for protein - Discussed with Dr. Bucio, [employer], who admit the patient for preeclampsia Differential diagnosis: Preeclampsia, eclampsia, ACS, PE, tracheal hemorrhage Independent History obtained from: Diagnostics interpreted by me: ECG: ECG independently interpreted by me with normal sinus rhythm, rate of 75, normal axis, normal ND, normal QRS, normal QTc, no ST segment elevations consistent with STEMI criteria Cardiac Monitoring: An order was placed for continuous cardiac monitoring. The monitor shows a rate of 72 with sinus rhythm. Critical Care Note: I have personally spent 34 minutes of critical care time in the direct management of this patient. This includes bedside care, interpretation of diagnostic studies, and testing, discussion with consultants, patient, and family members, and other required patient management activities. This 34 minutes is in excess of all separately billable procedures. Past Med/Surg History Problem List (Updated 11/20/24 @ 18:00 by Andre Campbell MD) Pre-eclampsia in period (Acute) Severe pre-eclampsia with complication Preeclampsia in period S/P section care and examination Pre-eclampsia in third trimester (Acute) Hypothyroidism Sinus tachycardia complicated by cardiac condition, antepartum Heart murmur Encounter for anatomic survey Early stage of Supervision of normal first Medical History Chlamydia Varicella vaccination Raynaud's phenomenon (by history or observed) Chronic low back pain Academic problem Problems with learning Anxiety disorder ADHD, predominantly inattentive type Hematemesis Tachycardia Surgical History History of tonsillectomy and adenoidectomy [place] teeth extracted Family History Unknown Primary nocturnal enuresis Adopted Bipolar disorder Anxiety disorder Brother Attention deficit hyperactivity disorder Mother Stroke Endometriosis Father No problems noted. Uncle Rheumatoid arthritis Denies family history of Ovarian cancer Breast cancer Colorectal cancer Social History Smoking Status: Never smoker Do You Dip or Chew Tobacco: No; Hx Alcohol Use: No Hx Substance Use: No Preferred Language: Turkish Communication Ability: Effective Visual Impairment: No Limitations Hearing Ability: Normal Student Advisor Required: No Beliefs That Will Affect Care: None marital status: Single marital status details: kamran Rosenbaum (22) [phone] Current Living Situation: Significant Other Current Living Situation Comment: lives with fob, cats-fob changing litter current occupational status: employed current occupation: [employer] Jennifer Feels Safe at Home: Yes Safety Concerns: Feels Safe At This Time Childhood Exposure to Second-Hand Smoke: No Dental Care, Regularly: Yes Seatbelt Use: always Sunscreen Use: No Assistive Devices: None Allergies Allergies Allergy/AdvReac Type Severity Reaction Status Date / Time No Known Allergies Allergy Verified 11/19/24 23:39 Home Meds Home Medications Medication Instructions Recorded Confirmed buspirone 10 mg tablet 20 mg PO HS 12/14/18 11/19/24 trazodone 50 mg tablet 50 mg PO HS 12/14/18 11/19/24 vit no.95-ferrous 1 tab PO DAILY 11/19/24 11/19/24 fumarate 28 mg-folic acid 800 mcg tablet () Previous Rx's Medication Instructions Recorded labetalol 200 mg tablet 200 mg PO Q12H #60 tabs 11/16/24 Results & Data (ED) Vital Signs Vital Signs - 24 hr 11/19/24 22:12 11/19/24 22:25 11/19/24 22:30 Temperature 36.7 C Temperature Source Temporal Artery Scan Pulse Rate 76 70 71 Respiratory Rate 18 18 18 Respiratory Effort / Characteristics Non-Labored Spontaneous Respiratory Depth Normal Respiratory Pattern Regular Blood Pressure 169/110 H 170/115 H 153/113 H Blood Pressure [Right Arm] Blood Pressure Mean 129 125 119 Blood Pressure Mean [Right Arm] Blood Pressure Position Sitting Pulse Oximetry 98 99 99 Oxygen Delivery Method Room Air Sepsis Recent Fever Within 48 Hours No Sepsis New/Unexplained Change in Mental Status N/A Sepsis Action Taken by Nursing No Action Required 11/19/24 22:32 11/19/24 22:39 11/19/24 22:45 Temperature Temperature Source Pulse Rate 69 69 Respiratory Rate 21 Respiratory Effort / Characteristics Short of Breath Respiratory Depth Normal Respiratory Pattern Blood Pressure 153/113 H 151/103 H Blood Pressure [Right Arm] Blood Pressure Mean 122 Blood Pressure Mean [Right Arm] Blood Pressure Position Pulse Oximetry 98 Oxygen Delivery Method Room Air Sepsis Recent Fever Within 48 Hours Sepsis New/Unexplained Change in Mental Status Sepsis Action Taken by Nursing 11/19/24 22:55 11/19/24 23:00 11/19/24 23:00 Temperature Temperature Source Pulse Rate 69 67 62 Respiratory Rate 18 20 Respiratory Effort / Characteristics Respiratory Depth Respiratory Pattern Blood Pressure 151/103 H 160/103 H 160/103 H Blood Pressure [Right Arm] Blood Pressure Mean 113 113 Blood Pressure Mean [Right Arm] Blood Pressure Position Pulse Oximetry 98 97 Oxygen Delivery Method Sepsis Recent Fever Within 48 Hours Sepsis New/Unexplained Change in Mental Status Sepsis Action Taken by Nursing 11/19/24 23:31 11/19/24 23:32 Temperature 36.8 C Temperature Source Oral Pulse Rate 69 Respiratory Rate 20 14 Respiratory Effort / Characteristics Respiratory Depth Normal Respiratory Pattern Blood Pressure 167/105 H Blood Pressure [Right Arm] 167/105 H Blood Pressure Mean 130 Blood Pressure Mean [Right Arm] 125 Blood Pressure Position Pulse Oximetry 97 97 Oxygen Delivery Method Room Air Sepsis Recent Fever Within 48 Hours Sepsis New/Unexplained Change in Mental Status Sepsis Action Taken by Nursing Laboratory Data 11/19/24 22:30 11/19/24 22:30 Lab Results 11/19/24 11/19/24 Range/Units 22:30 23:25 WBC 7.54 (4.8-10.8) K/ul RBC 2.69 L (4.20-5.40) M/uL Hgb 7.7 L (12.0-16.0) g/dl Hct 23.7 L (37.0-47.0) % MCV 88.1 (80.0-100.0) fL MCH 28.6 (25.0-34.0) pg MCHC 32.5 (32.0-36.0) g/dL RDW Std Deviation 43.8 (36.4-46.3) fL RDW Coeff of [place] 14.2 (11.5-14.5) % Plt Count 165 (130-400) K/uL MPV 10.2 (9.4-12.4) fL Immature Gran % (Auto) 1.5 % Neut % (Auto) 57.4 % Lymph % (Auto) 31.6 % [place] % (Auto) 6.4 % Eos % (Auto) 2.8 % Baso % (Auto) 0.3 % Neut # (Auto) 4.34 (1.40-6.50) K/uL Lymph # (Auto) 2.38 (1.20-3.40) K/uL [place] # (Auto) 0.48 (0.11-0.59) K/uL Eos # (Auto) 0.21 (0.00-0.50) K/uL Baso # (Auto) 0.02 (0.00-0.20) K/uL Immature Gran # (Auto) 0.11 (0.01-0.20) K/uL Polychromasia 1+ Tear Drop Cells 1+ Sodium 138 (136-145) mmol/L Potassium 4.3 (3.5-5.1) mmol/L Chloride 111 H (98-107) mmol/L Carbon Dioxide 19 L (21-32) mmol/L Anion Gap 8 (3-11) BUN 16 (6-23) mg/dl Creatinine 0.88 (0.6-1.2) mg/dl Est Cr Clr Drug Dosing 97.1 ml/min eGFR 95.23 BUN/Creatinine Ratio 18.2 (10-20) Glucose 90 (70-99(Fasting)) mg/dl Calcium 8.0 L (8.6-10.3) mg/dl Total Bilirubin 0.2 (0.2-1.0) mg/dl Direct Bilirubin 0.1 (0-0.2) mg/dl AST 20 (13-39) U/L ALT 22 (7-52) U/L Alkaline Phosphatase 105 H (34-104) U/L Troponin I High Sens 3.5 (0-14) pg/ml Total Protein 5.8 L (6.0-8.3) gm/dl Albumin 3.0 L (3.4-5.0) gm/dl Lipase 39 (11-82) U/L Urine Color Yellow Urine Appearance Clear (Clear) Urine pH 8.0 H (4.5-7.5) Ur Specific [place] 1.009 (1.000-1.030) Urine Protein Negative (Negative) Urine Glucose (UA) Negative (Negative) Urine Ketones Negative (Negative) Urine Blood 2+ H (Negative) Urine Nitrite Negative (Negative) Urine Bilirubin Negative (Negative) Urine Urobilinogen Negative (Negative) Ur Leukocyte Esterase 1+ H (Negative) Urine WBC (Auto) 11-20 H (0-5) /hpf Urine RBC (Auto) 0-2 (0-2) /hpf U Hyaline Cast (Auto) 0-2 (0-2) /lpf U Epithel Cells (Auto) 3-5 H (0-2) /hpf Urine Bacteria (Auto) 1+ H (None Seen) Urine Comment Administered Medications Acetaminophen (Acetaminophen 325 Mg Tab) 650 mg PO Q6H PRN PRN Reason: Pain/HERNANDEZ/Fever Stop: 12/20/24 00:34 Last Admin: 11/20/24 17:22 Dose: 650 mg Documented By: [id number] Admin: 11/20/24 11:22 Dose: 650 mg Documented By: [id number] Lactated Ringer's (Lr) 1,000 mls @ 125 mls/hr IV .Q8H PRN; Protocol PRN Reason: L&D Protocol Stop: 11/22/24 00:34 Last Infusion: 11/20/24 15:45 Dose: 0 mls/hr Documented By: [id number] Admin: 11/20/24 14:07 Dose: 75 mls/hr Documented By: [id number] Infusion: 11/20/24 14:07 Dose: Infused Documented By: [id number] Infusion: 11/20/24 07:07 Dose: 75 mls/hr Documented By: Infusion: 11/20/24 03:30 Dose: 75 mls/hr Documented By: Admin: 11/20/24 00:48 Dose: 75 mls/hr Documented By: MOSHE Magnesium Sulfate (Magnesium Sulfate / Wtr) 40 gm in 1,000 mls @ 50 mls/hr IV .Q20H [facility] Stop: 12/20/24 00:34 Last Admin: 11/20/24 17:22 Dose: 50 mls/hr Documented By: [id number] Co-signed By: [email or web address] Infusion: 11/20/24 17:22 Dose: Infused Documented By: [id number] Co-signed By: [email or web address] Infusion: 11/20/24 07:00 Dose: 50 mls/hr Documented By: MOSHE Co-signed By: [id number] Infusion: 11/20/24 03:30 Dose: 50 mls/hr Documented By: MOSHE Co-signed By: [email or web address] Admin: 11/20/24 01:09 Dose: 50 mls/hr Documented By: MOSHE Co-signed By: EVELIA Ibuprofen (Ibuprofen 600 Mg Tab) 600 mg PO Q4H PRN PRN Reason: Pain/HERNANDEZ/Cramping/Fever Stop: 12/20/24 00:34 Last Admin: 11/20/24 17:22 Dose: 600 mg Documented By: [id number] Labetalol HCl (Labetalol Hcl 200 Mg Tab) 200 mg PO Q12H NAREN Stop: 12/20/24 08:59 Last Admin: 11/20/24 08:49 Dose: 200 mg Documented By: [id number] Discontinued Medications Magnesium Sulfate/Dextrose (Magnesium Sulfate / D5w) 1 gm in 100 mls @ 200 mls/hr IV Q30M NAREN Stop: 11/19/24 23:19 Last Infusion: 11/20/24 00:01 Dose: Infused Documented By: MARIA ISABEL Admin: 11/19/24 23:11 Dose: 200 mls/hr Documented By: Infusion: 11/19/24 23:11 Dose: Infused Documented By: Admin: 11/19/24 22:35 Dose: 200 mls/hr Documented By: DEVANTE Labetalol HCl (Labetalol Hcl Iv 5 Mg/Ml 20ml) 10 mg IV NOW STA Stop: 11/19/24 22:21 Last Admin: 11/19/24 22:32 Dose: 10 mg Documented By: DEVANTE Lorazepam (Lorazepam 1 Mg Tab) 1 mg PO NOW STA Stop: 11/19/24 22:49 Last Admin: 11/19/24 22:56 Dose: 1 mg Documented By: MARIA ISABEL Magnesium Sulfate (Mag Sulfate 4gm Bolus From Bag) 4 gm IV ONE ONE Stop: 11/20/24 00:36 Last Admin: 11/20/24 00:48 Dose: 4 gm Documented By: MOSHE Co-signed By: EVELIA Magnesium Sulfate (Magnesium Sulfate 40gm / Wtr 1,000 Ml Bag) Confirm Administered Dose 40 gm IV .STK-MED ONE Stop: 11/20/24 00:43 Last Admin: 11/20/24 01:07 Dose: Not Given Documented By: MOSHE Discharge Plan Visit Data Chief Complaint: Cardiac Assessment Stated Complaint: HBP, CHEST PRESSURE, DIZZY, WAS ED Provider: Andre Campbell Discharge Problem: Pre-eclampsia in period Patient Disposition: Admitted As Inpatient Condition: Fair Discharge Instructions Interventions: ED Discharge Assessment Last Done: 11/20/24 00:11
[2024-11-20 00:06] LABS: Appearance Urine Clear (Clear); Bacteria Urine Automated 1+ (None Seen); Cast Urine Automated 0-2 /lpf (0-2); Glucose Urine UA Negative (Negative); RBC Urine Automated 0-2 /hpf (0-2)
[2024-11-20] MEDS: LACTATED RINGER'S 1,000 ML IV PRN (00:48)
[2024-11-20] MEDS: MAG SULFATE 4GM BOLUS FROM BAG IV ONE (00:48)
[2024-11-20] MEDS ORDERED: Nursing to Pharmacy Communication SCH (01:00)
[2024-11-20] MEDS: MAGNESIUM SULFATE 40GM / WTR 1,000 ML BAG IV ONE (01:07)
[2024-11-20] MEDS: MAGNESIUM SULFATE / WTR 40 GM/1,000 ML BAG IV SCH (01:09)
[2024-11-20 02:46] LABS: Polychromasia 1+; Tear Drop Cells 1+
[2024-11-20] MEDS: LABETALOL HCL 200 MG TAB PO SCH ×2 (08:49→21:06)
[2024-11-20] MEDS ORDERED: LEVOTHYROXINE SODIUM 50 MCG TABLET PO SCH (09:00)
--- NOTE | 2024-11-20 10:18 | History & Physical Report ---
Date of Service November 19, 2024 Assessment & Plan (1) Preeclampsia in period: Plan: Starr is a 24-year-old with severe preeclampsia as detailed per HPI. Blood pressures responded well to acute antihypertensive medications we will continue to monitor. Will continue magnesium per protocol. Findings and plan discussed with patient is agreeable with plan. (2) Severe pre-eclampsia with complication: History of Present Illness Primary Care Provider: Joi Ramírez MD Starr is a 24-year-old presents to ED for acute elevation in blood pressures. Patient is approximately 4 days status post a primary section with labor course complicated by severe preeclampsia requiring magnesium. Has been on labetalol 200 mg twice daily following delivery and was noted to initially have well-controlled blood pressures and was discharged home on day 3. Patient reports that she started to not feel well again and checked her blood pressure on her own and was noted to be in the 160s over 100s. Presents to the ED for evaluation and was noted to have severe range blood pressures requiring acute antihypertensive medications. Denying any distinct preeclampsia symptoms and all preeclampsia labs normal. Patient was started on mag in the ED. Discussed plan for admission for magnesium and blood pressure management. Discussed findings and answered questions Allergies Allergy/AdvReac Type Severity Reaction Status Date / Time No Known Allergies Allergy Verified 11/19/24 23:39 Home Medications Medication Instructions Recorded Confirmed Type buspirone 10 mg tablet 20 mg PO HS 12/14/18 11/19/24 History trazodone 50 mg tablet 50 mg PO HS 12/14/18 11/19/24 History labetalol 200 mg tablet 200 mg PO Q12H #60 tabs 11/16/24 11/19/24 Rx vit no.95-ferrous 1 tab PO DAILY 11/19/24 11/19/24 History fumarate 28 mg-folic acid 800 mcg tablet () Patient History Medical History Chlamydia Varicella vaccination Raynaud's phenomenon (by history or observed) Chronic low back pain Academic problem Problems with learning Anxiety disorder ADHD, predominantly inattentive type Hematemesis Tachycardia Surgical History History of tonsillectomy and adenoidectomy [place] teeth extracted Family History Unknown Primary nocturnal enuresis Adopted Bipolar disorder Anxiety disorder Brother Attention deficit hyperactivity disorder Mother Stroke Endometriosis Father No problems noted. Uncle Rheumatoid arthritis Denies family history of Ovarian cancer Breast cancer Colorectal cancer Social History Smoking Status: Never smoker Do You Dip or Chew Tobacco: No; Hx Alcohol Use: No Hx Substance Use: No Preferred Language: [place]ib[place]ian Communication Ability: Effective Visual Impairment: No Limitations Hearing Ability: Normal Scientific Linguist Required: No Beliefs That Will Affect Care: None marital status: Single marital status details: kamran Rosenbaum (22) [phone] Current Living Situation: Significant Other Current Living Situation Comment: lives with fob, cats-fob changing litter current occupational status: employed current occupation: [employer] Jennifer Feels Safe at Home: Yes Safety Concerns: Feels Safe At This Time Childhood Exposure to Second-Hand Smoke: No Dental Care, Regularly: Yes Seatbelt Use: always Sunscreen Use: No Assistive Devices: None Physical Exam Gastrointestinal (Abdomen): Percussion/Palpation: abdomen soft; abdomen nontender Results & Data Vital Signs (Past 12 Hours) Vital Signs Temp Pulse Resp BP BP Pulse Ox O2 Del Method 11/19/24 23:32 36.8 C 14 167/105 H 97 Room Air 11/19/24 23:00 67 18 160/103 H 98 11/19/24 22:55 69 151/103 H 11/19/24 22:45 69 21 151/103 H 98 11/19/24 22:39 Room Air 11/19/24 22:32 69 153/113 H 11/19/24 22:30 71 18 153/113 H 99 11/19/24 22:25 70 18 170/115 H 99 11/19/24 22:12 36.7 C 76 18 169/110 H 98 Room Air Coding Level of Care Code 78152 INT INP/OBS CARE 2/55MIN Diagnoses Preeclampsia in period O14.95 Severe pre-eclampsia with complication O14.15
--- NOTE | 2024-11-20 10:20 | Obstetrical Progress Note ---
Date of Service November 20, 2024 Assessment & Plan (1) Severe pre-eclampsia with complication: Plan: Starr is a 24-year-old approximately 4 to 5 days status post section with complicated by preeclampsia readmitted for preecl ampsia with severe features. Blood pressures have been mostly mild range and we will continue to monitor and treat as needed. Discussed continuing magnesium for 24 hours. No acute concerns we will continue to monitor (2) Preeclampsia in period: Admission and Anticipated Discharge Date Admission Date: November 19, 2024 Subjective Starr is a 24-year-old day 1 readmission for preeclampsia with severe features. Blood pressures have been mostly mild range since admission and will continue to monitor. Denying any distinct preeclampsia symptoms today. Denying any concerns Physical Exam Gastrointestinal (Abdomen): Percussion/Palpation: abdomen soft; abdomen nontender Results & Data Vital Signs (Past 12 Hours) Vital Signs Temp Pulse Pulse Resp BP BP Pulse Ox 11/20/24 08:41 92 H 98 11/20/24 08:36 87 98 11/20/24 08:31 104 H 100 11/20/24 08:27 96 H 136/93 11/20/24 08:26 91 H 99 11/20/24 08:21 94 H 99 11/20/24 08:16 104 H 99 11/20/24 08:11 102 H 99 11/20/24 08:06 105 H 100 11/20/24 08:01 90 98 11/20/24 07:57 85 154/93 H 11/20/24 07:56 81 98 11/20/24 07:51 92 H 99 11/20/24 07:46 89 98 11/20/24 07:41 88 98 11/20/24 07:36 86 99 11/20/24 07:31 103 H 99 11/20/24 07:27 89 147/90 H 11/20/24 07:26 98 H 98 11/20/24 07:21 102 H 100 11/20/24 07:20 81 153/90 H 11/20/24 07:16 86 97 11/20/24 07:15 18 11/20/24 07:15 36.8 C 18 11/20/24 07:11 80 98 11/20/24 07:06 80 97 11/20/24 07:05 76 153/91 H 11/20/24 07:01 82 96 11/20/24 06:56 79 98 11/20/24 06:51 77 98 11/20/24 06:50 77 139/89 11/20/24 06:46 76 98 11/20/24 06:41 79 98 11/20/24 06:36 82 98 11/20/24 06:35 81 141/90 H 11/20/24 06:31 91 H 100 11/20/24 06:26 79 97 11/20/24 06:21 80 99 11/20/24 06:20 87 149/92 H 11/20/24 06:16 80 96 11/20/24 06:11 76 98 11/20/24 06:06 82 98 11/20/24 06:05 89 162/90 H 11/20/24 06:01 84 98 11/20/24 06:00 18 11/20/24 05:56 82 96 11/20/24 05:51 78 96 11/20/24 05:50 79 130/83 11/20/24 05:46 81 96 11/20/24 05:41 82 96 11/20/24 05:36 80 97 11/20/24 05:35 77 127/84 11/20/24 05:31 78 97 11/20/24 05:26 79 97 11/20/24 05:21 76 98 11/20/24 05:20 76 135/89 11/20/24 05:16 82 97 11/20/24 05:11 83 98 11/20/24 05:06 80 97 11/20/24 05:05 75 161/97 H 11/20/24 05:01 74 97 11/20/24 05:00 18 11/20/24 04:56 74 99 11/20/24 04:51 73 99 11/20/24 04:50 80 160/94 H 11/20/24 04:46 81 98 11/20/24 04:41 106 H 96 11/20/24 04:36 75 97 11/20/24 04:35 74 131/80 11/20/24 04:31 76 96 11/20/24 04:26 76 96 11/20/24 04:21 77 96 11/20/24 04:20 74 131/80 11/20/24 04:16 75 96 11/20/24 04:11 74 96 07/13/25 04:06 76 96 11/20/24 04:05 74 132/80 11/20/24 04:01 76 96 11/20/24 04:00 16 11/20/24 03:56 77 96 11/20/24 03:51 77 96 11/20/24 03:50 75 124/77 11/20/24 03:46 75 96 11/20/24 03:41 77 96 11/20/24 03:36 73 97 11/20/24 03:35 72 156/98 H 11/20/24 03:31 79 98 11/20/24 03:30 36.9 C 16 11/20/24 03:26 76 97 11/20/24 03:21 76 97 11/20/24 03:20 76 147/93 H 11/20/24 03:16 81 96 11/20/24 03:11 84 97 11/20/24 03:06 77 96 11/20/24 03:05 75 160/93 H 11/20/24 03:01 72 97 11/20/24 03:00 16 11/20/24 02:56 72 98 11/20/24 02:51 105 H 99 11/20/24 02:50 74 127/80 11/20/24 02:46 78 96 11/20/24 02:41 77 96 11/20/24 02:36 76 96 11/20/24 02:35 72 126/81 11/20/24 02:31 76 96 11/20/24 02:26 75 96 11/20/24 02:21 77 97 11/20/24 02:20 73 137/88 11/20/24 02:16 73 98 11/20/24 02:11 72 97 11/20/24 02:06 73 98 11/20/24 02:05 73 149/97 H 11/20/24 02:01 69 98 11/20/24 02:00 18 11/20/24 01:56 77 99 11/20/24 01:51 75 98 11/20/24 01:51 36.6 C 60 20 105/60 93 11/20/24 01:50 71 147/100 H 11/20/24 01:46 75 99 11/20/24 01:41 72 99 11/20/24 01:36 75 100 11/20/24 01:35 70 147/101 H 11/20/24 01:31 72 99 11/20/24 01:30 18 11/20/24 01:26 75 98 11/20/24 01:21 72 99 11/20/24 01:20 71 152/96 H 11/20/24 01:16 87 99 11/20/24 01:15 18 11/20/24 01:11 76 99 11/20/24 01:06 75 99 11/20/24 01:04 72 141/91 H 11/20/24 01:00 18 11/20/24 01:00 37.0 C 72 18 141/82 H 99 11/20/24 00:40 141/82 H 11/20/24 00:15 67 18 161/125 H 11/19/24 23:32 36.8 C 14 167/105 H 97 11/19/24 23:31 69 20 167/105 H 97 11/19/24 23:00 62 20 160/103 H 97 11/19/24 23:00 67 18 160/103 H 98 11/19/24 22:55 69 151/103 H 11/19/24 22:45 69 21 151/103 H 98 11/19/24 22:39 11/19/24 22:32 69 153/113 H 11/19/24 22:30 71 18 153/113 H 99 11/19/24 22:25 70 18 170/115 H 99 11/19/24 22:12 36.7 C 76 18 169/110 H 98 O2 Del Method 11/20/24 08:41 11/20/24 08:36 11/20/24 08:31 11/20/24 08:27 11/20/24 08:26 11/20/24 08:21 11/20/24 08:16 11/20/24 08:11 11/20/24 08:06 11/20/24 08:01 11/20/24 07:57 11/20/24 07:56 11/20/24 07:51 11/20/24 07:46 11/20/24 07:41 11/20/24 07:36 11/20/24 07:31 11/20/24 07:27 11/20/24 07:26 11/20/24 07:21 11/20/24 07:20 11/20/24 07:16 11/20/24 07:15 11/20/24 07:15 11/20/24 07:11 11/20/24 07:06 11/20/24 07:05 11/20/24 07:01 11/20/24 06:56 11/20/24 06:51 11/20/24 06:50 11/20/24 06:46 11/20/24 06:41 11/20/24 06:36 11/20/24 06:35 11/20/24 06:31 11/20/24 06:26 11/20/24 06:21 11/20/24 06:20 11/20/24 06:16 11/20/24 06:11 11/20/24 06:06 11/20/24 06:05 11/20/24 06:01 11/20/24 06:00 11/20/24 05:56 11/20/24 05:51 11/20/24 05:50 11/20/24 05:46 11/20/24 05:41 11/20/24 05:36 11/20/24 05:35 11/20/24 05:31 11/20/24 05:26 11/20/24 05:21 11/20/24 05:20 11/20/24 05:16 11/20/24 05:11 11/20/24 05:06 11/20/24 05:05 11/20/24 05:01 11/20/24 05:00 11/20/24 04:56 11/20/24 04:51 11/20/24 04:50 11/20/24 04:46 11/20/24 04:41 11/20/24 04:36 11/20/24 04:35 11/20/24 04:31 11/20/24 04:26 11/20/24 04:21 11/20/24 04:20 11/20/24 04:16 11/20/24 04:11 11/20/24 04:06 11/20/24 04:05 11/20/24 04:01 11/20/24 04:00 11/20/24 03:56 11/20/24 03:51 11/20/24 03:50 11/20/24 03:46 11/20/24 03:41 11/20/24 03:36 11/20/24 03:35 11/20/24 03:31 11/20/24 03:30 11/20/24 03:26 11/20/24 03:21 11/20/24 03:20 11/20/24 03:16 11/20/24 03:11 11/20/24 03:06 11/20/24 03:05 11/20/24 03:01 11/20/24 03:00 11/20/24 02:56 11/20/24 02:51 11/20/24 02:50 11/20/24 02:46 11/20/24 02:41 11/20/24 02:36 11/20/24 02:35 11/20/24 02:31 11/20/24 02:26 11/20/24 02:21 11/20/24 02:20 11/20/24 02:16 11/20/24 02:11 11/20/24 02:06 11/20/24 02:05 11/20/24 02:01 11/20/24 02:00 11/20/24 01:56 11/20/24 01:51 11/20/24 01:51 11/20/24 01:50 11/20/24 01:46 11/20/24 01:41 11/20/24 01:36 11/20/24 01:35 11/20/24 01:31 11/20/24 01:30 11/20/24 01:26 11/20/24 01:21 11/20/24 01:20 11/20/24 01:16 11/20/24 01:15 11/20/24 01:11 11/20/24 01:06 11/20/24 01:04 11/20/24 01:00 11/20/24 01:00 Room Air 11/20/24 00:40 11/20/24 00:15 11/19/24 23:32 Room Air 11/19/24 23:31 11/19/24 23:00 11/19/24 23:00 11/19/24 22:55 11/19/24 22:45 11/19/24 22:39 Room Air 11/19/24 22:32 11/19/24 22:30 11/19/24 22:25 11/19/24 22:12 Room Air PG Care Time/CCT Total # of Minutes Spent Total Time Spent with Patient: Total time spent is greater than 50% in coordination of care (as documented) at patient's floor/unit and/or counseling patient: Coding Level of Care Code 78107 SUB INP/OBS CARE 2/35MIN Diagnoses Severe pre-eclampsia with complication O14.15 Preeclampsia in period O14.95
[2024-11-20] MEDS: ACETAMINOPHEN 325 MG TAB PO PRN (11:22)
[2024-11-20] MEDS: IBUPROFEN 600 MG TAB PO PRN (17:22)
[2024-11-20] MEDS: busPIRone 5 MG TAB PO SCH (21:07)
--- NOTE | 2024-11-21 07:20 | Obstetrical Progress Note ---
Date of Service <Abdoulaye Santamaria MD - Last Filed: 11/21/24 07:45> November 21, 2024 Assessment & Plan <Abdoulaye Santamaria MD - Last Filed: 11/21/24 07:45> (1) Pre-eclampsia in period: 24-year-old readmission for preeclampsia with severe features. Today is day 6-7 post-op s/p . -BPs mild ranges -No overt sx of preeclampsia -mag and gomes discontinued -continue BP checks and management with labetolol 200mg q8h -will continue to monitor <Inocente Bucio MD - Last Filed: 11/21/24 07:51> (1) Pre-eclampsia in period: Subjective <Abdoulaye Santamaria MD - Last Filed: 11/21/24 07:45> 24-year-old readmission for preeclampsia with severe features. Today is day 6-7 post-op s/p . Blood pressures have been mostly mild range since admission and will continue to monitor. Pt ambulating with no issues. Denies any distinct preeclampsia sx-CP, SOB, vision changes, headaches, abdominal pain today. Denies any concerns. Mag and gomes discontinued around 1am. Urinating fine since discontinuation of the gomes. Physical Exam <Abdoulaye Santamaria MD - Last Filed: 11/21/24 07:45> General: patient resting comfortably, NAD, non-toxic in appearance, answers questions appropriately Skin: warm, dry, intact Heart: S1/S2 heard, regular, no m/r/g Lungs: equal air entry bilaterally, no rales/rhonchi/wheezes Abd: Normoactive BS, soft, NT/ND, uterine fundus firm at umbilicus, incision clean, dry, and intact Ext: warm, no clubbing/cyanosis or edema Neuro: nonfocal, patient AAOx4, speech intact, no facial droop, moving all extremities on command Results & Data <Abdoulaye Santamaria MD - Last Filed: 11/21/24 07:45> Vital Signs (Past 12 Hours) Vital Signs Temp Pulse Resp BP Pulse Ox 11/21/24 06:09 75 130/86 11/21/24 05:05 77 121/79 11/21/24 05:00 16 11/21/24 02:33 69 142/90 H 11/21/24 02:30 36.7 C 18 11/21/24 01:08 71 96 11/21/24 01:03 71 96 11/21/24 01:00 18 11/21/24 00:58 75 97 11/21/24 00:53 73 96 11/21/24 00:48 73 96 11/21/24 00:43 76 97 11/21/24 00:38 71 98 11/21/24 00:33 74 96 11/21/24 00:28 75 97 11/21/24 00:27 78 132/78 11/21/24 00:23 83 97 11/21/24 00:18 78 95 11/21/24 00:13 78 95 11/21/24 00:08 75 95 11/21/24 00:03 75 95 11/21/24 00:00 16 11/20/24 23:58 79 96 11/20/24 23:57 80 134/83 11/20/24 23:53 78 96 11/20/24 23:48 79 96 11/20/24 23:43 78 96 11/20/24 23:38 75 96 11/20/24 23:33 75 96 11/20/24 23:30 36.8 C 16 11/20/24 23:28 74 96 11/20/24 23:27 72 128/77 11/20/24 23:23 73 97 11/20/24 23:18 77 96 11/20/24 23:13 96 11/20/24 23:13 87 11/20/24 23:13 80 94 11/20/24 23:08 77 95 11/20/24 23:03 78 96 11/20/24 23:01 75 94 11/20/24 23:00 16 11/20/24 22:58 80 96 11/20/24 22:57 83 136/84 11/20/24 22:53 77 96 11/20/24 22:48 94 11/20/24 22:48 78 11/20/24 22:48 77 94 11/20/24 22:43 78 94 11/20/24 22:38 78 93 11/20/24 22:33 78 94 11/20/24 22:30 78 94 11/20/24 22:28 76 95 11/20/24 22:27 76 144/77 H 11/20/24 22:24 78 94 11/20/24 22:23 78 94 11/20/24 22:18 83 97 11/20/24 22:13 79 96 11/20/24 22:08 80 96 11/20/24 22:03 78 96 11/20/24 22:00 18 11/20/24 21:58 81 97 11/20/24 21:57 81 153/82 H 11/20/24 21:53 81 97 11/20/24 21:48 78 99 11/20/24 21:43 79 96 11/20/24 21:38 84 98 11/20/24 21:33 83 98 11/20/24 21:28 93 H 99 11/20/24 21:27 91 H 144/76 H 11/20/24 21:23 87 99 11/20/24 21:18 84 98 11/20/24 21:13 85 99 11/20/24 21:08 98 H 99 11/20/24 21:03 86 97 11/20/24 21:00 18 11/20/24 20:58 86 98 11/20/24 20:57 86 127/91 11/20/24 20:53 88 99 11/20/24 20:48 88 99 11/20/24 20:43 87 97 11/20/24 20:38 92 H 98 11/20/24 20:33 90 99 11/20/24 20:28 90 98 11/20/24 20:27 87 144/91 H 11/20/24 20:23 87 98 11/20/24 20:18 91 H 99 11/20/24 20:13 97 H 98 11/20/24 20:08 104 H 99 11/20/24 20:03 90 96 11/20/24 20:00 16 11/20/24 19:58 92 H 97 11/20/24 19:57 93 H 141/87 H 11/20/24 19:53 93 H 98 11/20/24 19:48 95 H 99 11/20/24 19:43 92 H 98 11/20/24 19:38 95 H 96 11/20/24 19:33 96 H 97 11/20/24 19:28 97 11/20/24 19:28 95 H 11/20/24 19:28 93 H 148/90 H 11/20/24 19:23 98 H 96 11/20/24 19:18 99 H 98 Supervising Physician <Inocente Bucio MD - Last Filed: 11/21/24 07:51> Co-Signing Physician Notes Patient seen with resident and agree of the above findings and plan. Denying any acute preeclampsia symptoms at present. Blood pressures have been normotensive overnight and have been mostly lower end of mild range over the past 24 to 36 hours. Will continue to monitor blood pressures today with plan discharge later this afternoon or tomorrow likely. Resident Activity Tracking <Abdoulaye Santamaria MD - Last Filed: 11/21/24 07:45> Resident Involvement: Resident Care Provided Care Provided: OB Delivery
[2024-11-21 09:20] VITALS: RESP 18
--- NOTE | 2024-11-21 10:33 | Electrocardiogram Report ---
Test Reason : Blood Pressure : */* mmHG Vent. Rate : 75 BPM Atrial Rate : 75 BPM P-R Int : 116 ms QRS Dur : 74 ms QT Int : 410 ms P-R-T Axes : 55 46 50 degrees QTcB Int : 457 ms Normal sinus rhythm Normal ECG When compared with ECG of 13-Nov-2024 22:00, Borderline criteria for Inferior infarct are no longer Present T wave inversion no longer evident in Inferior leads Confirmed by Mayo Valdes ([id number]) on 11/21/2024 10:33:01 AM Referred By: REFERRED SELF Confirmed By: Mayo Valdes
[2024-11-21 14:58] VITALS: TEMP 98.2; O2SAT 99
--- NOTE | 2024-11-21 16:22 | Communication Note ---
Date of Service: November 21, 2024 per nursing bps controlled and baby ok to go home if mom can. she desires such. will dc home. plan bp check this thu or . script sent for tid dosing la betalol.
[2024-11-21 16:28] VITALS: BP 136/96; PULSE 82
== END 2024-11-21 16:40 | disposition home or self-care (01) | DRG 776 ==
LOC: ED 22:09 → 4S1 23:45 → 4E2 11-21 08:30